=== PATIENT | female | born 1945 | race Caucasian/White ===

== ENCOUNTER 2020-09-21 09:20 | Emergency (ER) | payer MEDICARE, OTHER, SELFPAY ==
--- NOTE | ~2020-09-21 | XR_ITS ---
EXAMINATION: XR CHEST CLINICAL INFORMATION: Allergic reaction COMPARISON: Previous chest x-ray most recent November 2015 TECHNIQUE: Frontal view of the chest was obtained. FINDINGS: The cardiac silhouette is upper normal in size. The thoracic aorta is calcified and tortuous. There are increased perihilar markings and peribronchial cuffing. Findings are questionable for pulmonary venous redistribution versus airways disease. The lungs are otherwise clear. The lung volumes are low. There is no pleural effusion or pneumothorax. There are degenerative changes of the spine. XR/XR chest 1V IMPRESSION: Increased hilar markings and peribronchial cuffing. Findings are questionable for pulmonary venous redistribution versus airways disease.
[2020-09-21 09:37] VITALS: BP 141/69; PULSE 70; RESP 16; TEMP 37.1; O2SAT 97; BMI 44.9
[2020-09-21] MEDS: diphenhydrAMINE HCL 50 MG/ML VIAL 25 MG IVPUSH (10:29)
[2020-09-21] MEDS: Famotidine/PF 20 MG/2 ML VIAL IVPUSH (10:30)
[2020-09-21] MEDS: methylPREDNISolone Sod Succ 125 MG/2 ML VIAL IVPUSH (10:30)
--- NOTE | 2020-09-21 10:45 | PC.NURSE ---
20 ga iv est at approx 1020 no dysphonia or drooling noted pt resting comfortably in nsr on monitor
[2020-09-21 10:49] LABS: Eosinophils Absolute Auto 0.1 X10*3/uL (0.0-0.4); Eosinophils Percent Auto 1.5 % (0-4); Hematocrit 39.4 % (37-47); Hemoglobin 12.8 g/dl (12.0-16.0); Imm Gran Abs Auto 0.01 X10*3/uL (0.00-0.03); Imm Gran Pct Auto 0.2 % (0.0-0.4); Lymphocytes Absolute Auto 0.6 X10*3/uL (1.2-4.9); Lymphocytes Percent Auto 12.7 % (20-40); MANUAL DIFF FLAG SCAN; Mean Corpuscular HGB Conc 32.5 g/dl (31.0-35.0); Mean Corpuscular Hemoglobin 30.1 pg (27.0-33.0); Mean Corpuscular Volume 92.7 fL (80-98); Monocytes Absolute Auto 0.3 X10*3/uL (0.1-1.2); Monocytes Percent Auto 7.5 % (2-11); Neutrophils Absolute Auto 3.6 X10*3/uL (2.0-8.3); Neutrophils Percent Auto 78.1 % (45-73); Red Blood Count 4.25 X10*6/uL (4.20-5.50); SCAN SMEAR FLAG 1; White Blood Count 4.6 X10*3/uL (4.8-10.8)
[2020-09-21 11:11] VITALS: BP 120/42; PULSE 70; RESP 18; TEMP 36.6; O2SAT 96
[2020-09-21 11:12] LABS: Mean Platelet Volume 10.6 fL (9.4-12.3); Platelet Count 45 X10*3/uL (160-400)
--- NOTE | 2020-09-21 11:12 | PC.NURSE ---
unlabored resp. ls cta. one area of reddness on left forearm noted. pt states rash is improving. has been dozing. nsr on monitor. no diff swallowing or itchy throat. no oropharengeal swelling.
[2020-09-21 11:16] LABS: SLIDE REVIEW VERIFIED
[2020-09-21 11:30] LABS: Alanine Aminotransferase 19 U/L (0-31); Alkaline Phosphatase 59 U/L (39-117); Anion Gap 13 (12-20); Aspartate Amino Transferase 22 U/L (5-31); Bilirubin Direct 0.6 mg/dL (0.0-0.5); Bilirubin Total 1.6 mg/dL (0.0-1.0); Blood Urea Nitrogen 18 mg/dL (9-16); Calcium 9.2 mg/dL (8.4-10.2); Carbon Dioxide 24 mmol/L (22-29); Chloride 107 mmol/L (96-108); Creatinine Clr Calc Pharmacy 61.8; Estimated Glomerular Filt Rate > 60; Glucose Random 153 mg/dL (60-115); Potassium 4.4 mmol/L (3.3-5.1); Sodium 140 mmol/L (135-145); Total Protein 6.6 g/dL (6.5-8.0)
--- NOTE | 2020-09-21 11:36 | ED_ITS ---
HPI - Allergic Reaction General Chief complaint: Allergic Reaction Stated complaint: sob,rash, Time Seen by Provider: 09/21/20 09:41 Source: patient Mode of arrival: ambulatory History of Present Illness HPI narrative: 75-year-old female with past medical history of liver cirrhosis, diabetes, esophageal and gastric varices, hypertension, IBS, presenting to the ED complaining of diffuse body pruritus/rash and mild throat itching/swelling x1 day. Reports newly taking Tessalon Perles 1 week ago, denies other new medications/change in medications. Does take lisinopril. Denies shortness of breath, wheezing, new exposures/solution/detergents, travel, known tick/insect bites MD complaint: allergic reaction and hives Related Data Previous Rx's Medication Instructions Recorded amlodipine [Norvasc] 2.5 mg PO DAILY #14 tab 09/21/20 diphenhydramine HCl [Benadryl] 25 mg PO Q6H PRN #14 cap 09/21/20 prednisone 40 mg PO DAILY 5 Days #10 tab 09/21/20 Allergies Allergy/AdvReac Type Severity Reaction Status Date / Time erythromycin base Allergy Mild HIVES Unverified 02/26/20 14:34 [Erythromycin Base] Iodinated Contrast Media Allergy Mild HIVES Unverified 02/26/20 14:34 [IV Dye, Iodine Containing] penicillin G [Penicillin G] Allergy Mild HIVES Unverified 02/26/20 14:34 penicillin V Allergy Unknown anaphylaxis Verified 10/10/19 00:00 clindamycin [Clindamycin] AdvReac Mild SEVERE Unverified 02/26/20 14:34 DIARRHEA Clindamycin Palmitate HCl Allergy Unknown anaphylaxis Uncoded 10/10/19 00:00 Erythromycin Allergy Unknown Uncoded 10/10/19 00:00 Review of Systems Review of Systems: Constitutional: No Fever, No Chills ENT/Mouth: No Hoarseness, + sore throat, No Rhinorrhea, No Swallowing Difficulty Eyes: No Eye Pain, No Swelling, No Redness Cardiovascular: No Chest Pain, No SOB Respiratory: No Cough, No Wheezing, No Dyspnea Gastrointestinal: No Nausea, No Vomiting, No Diarrhea, No Abdominal pain Musculoskeletal: No joint pain, No Myalgias, No Joint Swelling Skin: + rash, + Pruritus Neuro: No Weakness, No Headache Yes all other systems are reviewed and are negative [facility] Past Medical History Medical History (Updated 09/21/20 @ 12:59 by NIRAV Pierce) Cirrhosis of liver Diabetes Esophageal and gastric varices FH: irritable bowel syndrome Hypertension Social History Social History Alcohol intake: never Smoking Status: Never smoker Use of substances other than those prescribed or required for medical reasons: No Advance Directives: Yes Advance Directives Information Provided: Yes Advance Directives on File: No Physical Exam Vital Signs: Vital Signs: Last Vital Signs Temp 97.8 F 09/21/20 11:11 Pulse 66 09/21/20 12:19 Resp 18 09/21/20 12:00 BP 160/75 H 09/21/20 12:00 Pulse Ox 98 09/21/20 12:00 Body Mass Index 44.9 Const: General: cooperative, healthy appearing, comfortable and no acute distress Orientation/consciousness: patient oriented x3 Limitations: no limitations HENMT: Head: Yes normal to inspection Ears: hearing grossly normal bilaterally General nose exam: Normal external nose present Face and sinus: Yes normal facial exam Mouth: Normal oral and palatal mucosa present, no audible dysphonia, no drooling and tongue abnormal (Slightly swollen) Throat: Yes posterior oropharynx normal, Yes tonsils normal, Yes uvula midline, No peritonsillar mass, No uvula laterally displaced and No uvular edema Eyes: General: appearance normal, both eyes and all related structures EOM: EOMs intact bilaterally Neck: Neck: Yes normal visual inspection, Yes no lymphadenopathy, Yes no meningeal signs and Yes trachea midline Resp: Effort & Inspection: normal respiratory effort, no audible wheezes and no stridor Auscultation: clear to auscultation bilaterally, no rales and no wheezes Cardio: Rate: regular rate Heart sounds: S1 normal heart sound present and S2 normal heart sound present GI: Inspection: Yes normal to inspection Palpation (GI): Soft to palpation, nontender, no guarding and not rigid Skin: Other: Large erythematous raised flat hives noted over chest/a bdomen/back and bilateral arms Wounds: no wounds Neuro: General: patient oriented x3 and no meningeal signs Gait exam (Neuro): Normal gait present Extrem: General: Yes normal to inspection Course Course Course Narrative: -mild leukopenia 4.6, labs otherwise unremarkable XR chest 1V IMPRESSION: Increased hilar markings and peribronchial cuffing. Findings are questionable for pulmonary venous redistribution versus airways disease. > albuterol inhaler provided to patient in the ED -on re-evaluation patient reports symptomatic improvement, hives notably improved, nearly resolved. Worrisome signs and symptoms and strict return precautions discussed. Will discharge patient on short course of steroids, d/c lisinopril and Tessalon Perles and have her follow-up with PCP/special investigation unit investigator MDM - Allergic Reaction MDM Narrative Medical decision making narrative: 75-year-old female with past medical history of liver cirrhosis, diabetes, esophageal and gastric varices, hypertension, IBS, presenting to the ED complaining of diffuse body pruritus/rash and mild throat itching/swelling x1 day. Reports newly taking Tessalon Perles 1 week ago. On exam VSS, NAD, hives noted as above, mild tongue swelling appreciable, uvula midline, in no respiratory distress, lungs CTA. Concern for allergic reaction possibly due to Tessalon Perles vs lisinopril angioedema vs other urticaria Plan: Labs, CXR, IV Solu-Medrol, IV Pepcid, IV Benadryl, re-evaluate Lab Data Result diagrams: 09/21/20 10:27 09/21/20 10:27 Labs: Lab Results 09/21/20 09/21/20 09/21/20 Range/Units 10:27 10:27 10:27 WBC 4.6 L (4.8-10.8) X10*3/uL RBC 4.25 (4.20-5.50) X10*6/uL Hgb 12.8 (12.0-16.0) g/dl Hct 39.4 (37-47) % MCV 92.7 (80-98) fL MCH 30.1 (27.0-33.0) pg MCHC 32.5 (31.0-35.0) g/dl RDW 15.0 (11.0-16.0) % Plt Count 45 L (160-400) X10*3/uL MPV 10.6 (9.4-12.3) fL Immature Gran % (Auto) 0.2 (0.0-0.4) % Neut % (Auto) 78.1 H (45-73) % Lymph % (Auto) 12.7 L (20-40) % [place] % (Auto) 7.5 (2-11) % Eos % (Auto) 1.5 (0-4) % Baso % (Auto) 0.0 (0-2) % Lymph # (Auto) 0.6 L (1.2-4.9) X10*3/uL [place] # (Auto) 0.3 (0.1-1.2) X10*3/uL Eos # (Auto) 0.1 (0.0-0.4) X10*3/uL Baso # (Auto) 0.0 (0.0-0.2) X10*3/uL Abs Immat Gran (auto) 0.01 (0.00-0.03) X10*3/uL Absolute Neuts (auto) 3.6 (2.0-8.3) X10*3/uL Absolute Nucleated RBC 0.000 (0.0-0.012) X10*3/uL Nucleated RBC % (auto) 0.0 (0.0-0.2) /100WBC Smear Tech's Comments VERIFIED Hold Blue Top SEE NOTE Sodium 140 (135-145) mmol/L Potassium 4.4 (3.3-5.1) mmol/L Chloride 107 (96-108) mmol/L Carbon Dioxide 24 (22-29) mmol/L Anion Gap 13 (12-20) BUN 18 H (9-16) mg/dL Creatinine 0.87 (0.5-1.4) mg/dL Estim Creat Clear Calc 61.8 Estimated GFR > 60 Random Glucose 153 H (60-115) mg/dL Calcium 9.2 (8.4-10.2) mg/dL Total Bilirubin 1.6 H (0.0-1.0) mg/dL Direct Bilirubin 0.6 H (0.0-0.5) mg/dL AST 22 (5-31) U/L ALT 19 (0-31) U/L Alkaline Phosphatase 59 (39-117) U/L B-Natriuretic Peptide (<100) pg/mL Total Protein 6.6 (6.5-8.0) g/dL Albumin 4.0 (3.5-5.0) g/dL 09/21/20 Range/Units 10:27 WBC (4.8-10.8) X10*3/uL RBC (4.20-5.50) X10*6/uL Hgb (12.0-16.0) g/dl Hct (37-47) % MCV (80-98) fL MCH (27.0-33.0) pg MCHC (31.0-35.0) g/dl RDW (11.0-16.0) % Plt Count (160-400) X10*3/uL MPV (9.4-12.3) fL Immature Gran % (Auto) (0.0-0.4) % Neut % (Auto) (45-73) % Lymph % (Auto) (20-40) % [place] % (Auto) (2-11) % Eos % (Auto) (0-4) % Baso % (Auto) (0-2) % Lymph # (Auto) (1.2-4.9) X10*3/uL [place] # (Auto) (0.1-1.2) X10*3/uL Eos # (Auto) (0.0-0.4) X10*3/uL Baso # (Auto) (0.0-0.2) X10*3/uL Abs Immat Gran (auto) (0.00-0.03) X10*3/uL Absolute Neuts (auto) (2.0-8.3) X10*3/uL Absolute Nucleated RBC (0.0-0.012) X10*3/uL Nucleated RBC % (auto) (0.0-0.2) /100WBC Smear Tech's Comments Hold Blue Top Sodium (135-145) mmol/L Potassium (3.3-5.1) mmol/L Chloride (96-108) mmol/L Carbon Dioxide (22-29) mmol/L Anion Gap (12-20) BUN (9-16) mg/dL Creatinine (0.5-1.4) mg/dL Estim Creat Clear Calc Estimated GFR Random Glucose (60-115) mg/dL Calcium (8.4-10.2) mg/dL Total Bilirubin (0.0-1.0) mg/dL Direct Bilirubin (0.0-0.5) mg/dL AST (5-31) U/L ALT (0-31) U/L Alkaline Phosphatase (39-117) U/L B-Natriuretic Peptide 55 (<100) pg/mL Total Protein (6.5-8.0) g/dL Albumin (3.5-5.0) g/dL Discharge Plan Discharge Clinical Impression: Urticaria, Angioedema Patient Disposition: Home, Self-Care Instructions: Urticaria (ED), Angioedema (ED) Additional Instructions: STOP TAKING YOUR LISINOPRIL, START TAKING NORVASC WHICH IS A NEW BLOOD PRESSURE MEDICATION You should also stop taking previously prescribed Tessalon Perles YOU TO HAVE CLOSE FOLLOW-UP WITH HER PRIMARY CARE DOCTOR FOR BLOOD PRESSURE MONITORING TAKE BENADRYL AT HOME FOR HIVES/ITCHINESS IN ADDITION PREDNISONE A STEROID WHICH TO HELP WITH HER ALLERGIC SYMPTOMS YOUR GIVEN AN INHALER TODAY IN THE ED, USE NEEDED FOR SHORTNESS OF BREATH/WHEEZING IF HER SYMPTOMS RECUR, PERSIST, WORSEN, YOU DEVELOP SHORTNESS BREATH, WHEEZING, RESIDUAL PERSISTENT HIVES, THOAT SWELLING RETURN TO THE ED IMMEDIATELY FOLLOW UP WITH HER DOCTOR Prescriptions: New diphenhydramine HCl [Benadryl] 25 mg capsule 25 mg PO Q6H PRN (Reason: allergic reaction) Qty: 14 RF: 0 prednisone 20 mg tablet 40 mg PO DAILY 5 Days Qty: 10 RF: 0 amlodipine [Norvasc] 2.5 mg tablet 2.5 mg PO DAILY Qty: 14 RF: 0 Referrals: Cortez Whitney DO [Physician] - 2 days Skyler Hermosillo MD [Primary Care Provider] - 2 days Interventions: ED Discharge Assessment Last Done: 09/21/20 13:35 Discharge Date/Time: 09/21/20 13:39
[2020-09-21 12:00] VITALS: BP 160/75; PULSE 68; RESP 18; O2SAT 98
[2020-09-21 12:19] VITALS: PULSE 66; O2SAT 94
[2020-09-21] MEDS: Albuterol Sulfate 90 MCG 8 GM INHALER 4 PUFF INHALE (12:19)
[2020-09-21 12:55] LABS: B Type Natriuretic Peptide 55 pg/mL (<100)
== END 2020-09-21 13:39 | disposition home or self-care (01) ==
PROVIDERS: Physician Assistant; Emergency Provider Emergency Medicine; PCP Internal Medicine
DX: R21 Rash and other nonspecific skin eruption (principal); T50.905A Adverse effect of unspecified drugs, medicaments and biological substances, initial encounter; Y92.019 Unspecified place in single-family (private) house as the place of occurrence of the external cause; T78.3XXA Angioneurotic edema, initial encounter
CPT/HCPCS: 36415; 71045; 80048; 80076; 83880; 85025; 94640; 96374; 96375; 99284; J1200; J2930

== ENCOUNTER 2022-06-10 09:24 | Inpatient (IN) | payer MEDICARE, OTHER, SELFPAY ==
--- NOTE | ~2022-06-10 | US_ITS ---
EXAMINATION: US ABDOMEN COMPLETE CLINICAL INFORMATION: Evaluate for ascites. COMPARISON: None TECHNIQUE: Real-time imaging of the abdominal viscera. FINDINGS: PANCREAS: Normal. ABDOMINAL AORTA: The proximal, mid, and distal segments are normal in caliber. INFERIOR VENA CAVA: Visualized portions are normal. LIVER: Heterogeneous liver texture suggesting liver parenchymal disease, The liver is normal in size. The liver contour is normal. No focal hepatic lesion. There is no intrahepatic biliary duct dilatation seen. GALLBLADDER: Normal. The gallbladder is physiologically distended without evidence of stones, sludge, polyps, wall thickening or pericholecystic fluid. COMMON BILE DUCT: Normal in caliber measuring 0.3 cm in diameter. RIGHT KIDNEY: Normal. No hydronephrosis. No renal calculi or focal parenchymal lesions. The kidney measures 11 cm in maximum dimension. LEFT KIDNEY: Normal. No hydronephrosis. No renal calculi or focal parenchymal lesions. The kidney measures 10.3 cm in maximum dimension. SPLEEN: Enlarged The spleen measures 21 cm in maximum dimension. Echogenic focus in the spleen likely calcified granuloma 2.1 x 1.4 x 1.3 cm probably of no clinical significance. FREE FLUID: None. US/US abdomen complete IMPRESSION: *Heterogeneously echogenic liver suggesting liver parenchymal disease possibly liver cirrhosis and/or hepatic steatosis. No ultrasound evidence of focal liver lesion. *Splenomegaly. Spleen measure up to 21 cm. *No ascites.
[2022-06-10 09:34] VITALS: BP 157/67; PULSE 96; RESP 18; TEMP 36.7; O2SAT 95; BMI 30.5
[2022-06-10 09:44] LABS: MANUAL DIFF FLAG NO
[2022-06-10 09:49] VITALS: BP 191/77; PULSE 93; RESP 16; TEMP 36.9; O2SAT 93
[2022-06-10 10:01] LABS: Basophils Percent Auto 0.6 % (0-2); Eosinophils Absolute Auto 0.1 X10*3/uL (0.0-0.4); Eosinophils Percent Auto 1.9 % (0-4); Hematocrit 35.3 % (37.0-47.0); Hemoglobin 11.5 g/dl (12.0-16.0); Imm Gran Abs Auto 0.01 X10*3/uL (0.00-0.03); Imm Gran Pct Auto 0.3 % (0.0-0.4); Lymphocytes Absolute Auto 0.6 X10*3/uL (1.2-4.9); Lymphocytes Percent Auto 17.9 % (20-40); Mean Corpuscular HGB Conc 32.6 g/dl (31.0-35.0); Mean Corpuscular Volume 92.2 fL (80.0-98.0); Mean Platelet Volume 10.6 fL (9.4-12.3); Monocytes Absolute Auto 0.2 X10*3/uL (0.1-1.2); Monocytes Percent Auto 6.5 % (2-11); Neutrophils Absolute Auto 2.4 x10*3/uL (2.0-8.3); Neutrophils Percent Auto 72.8 % (45-73); Red Blood Count 3.83 X10*6/uL (4.20-5.50); Red Cell Distribution Width 15.3 % (11.0-16.0); White Blood Count 3.2 X10*3/uL (4.8-10.8)
[2022-06-10 10:04] LABS: Platelet Count 40 X10*3/uL (160-400)
[2022-06-10 10:08] LABS: Alanine Aminotransferase 22 U/L (0-31); Albumin Level 3.8 g/dL (3.5-5.0); Alkaline Phosphatase 56 U/L (39-117); Anion Gap 14 (12-20); Aspartate Amino Transferase 33 U/L (5-31); Bilirubin Total 1.8 mg/dL (0.0-1.0); Blood Urea Nitrogen 25 mg/dL (9-16); Calcium 9.1 mg/dL (8.4-10.2); Carbon Dioxide 18 mmol/L (22-29); Chloride 107 mmol/L (96-108); Creatinine Clr Calc Pharmacy 50.6; Estimated Glomerular Filt Rate 49; Glucose Random 333 mg/dL (60-115); Potassium 4.2 mmol/L (3.3-5.1); Sodium 135 mmol/L (135-145); Total Protein 6.6 g/dL (6.5-8.0)
[2022-06-10 10:11] VITALS: BP 180/77; PULSE 90; RESP 16; O2SAT 93
--- NOTE | 2022-06-10 10:23 | ED_ITS ---
HPI - General Adult General Chief complaint: GI Bleed Stated complaint: black stool, abdominal pain Time Seen by Provider: 06/10/22 09:47 Source: patient History of Present Illness HPI narrative: This is a 77-year-old female who complains of black stool for a few days. The patient is on Lovenox injections for prior blood clot and has been on them for about 3 months. She also complains of right lower abdominal pain that she has had for months, and that she thinks was previously evaluated on the CT scan she had at [facility], where she had been started on the Lovenox. Patient denies any fever. She does feel little lightheaded. She denies any chest pain or shortness of breath. She has had nausea but denies vomiting. She notes that her stool is black and tarry appearing. Related Data Home Medications Medication Instructions Recorded Confirmed citalopram 20 mg tablet 1 tab PO DAILY 06/10/22 06/10/22 enoxaparin 150 mg/mL subcutaneous 135 mg subcut DAILY 06/10/22 06/10/22 syringe furosemide 20 mg tablet 1 tab PO DAILY 06/10/22 06/10/22 gabapentin 300 mg capsule 1 cap PO BEDTIME 06/10/22 06/10/22 glipizide 10 mg tablet 1 tab PO BID 06/10/22 06/10/22 hydrochlorothiazide 25 mg tablet 1 tab PO DAILY 06/10/22 06/10/22 insulin degludec 200 unit/mL (3 72 unit subcut BID 06/10/22 06/10/22 mL) subcutaneous pen (Tresiba FlexTouch U-200 insulin) lorazepam 1 mg tablet 1 tab PO BEDTIME PRN anxiety 06/10/22 06/10/22 pravastatin 40 mg tablet 1 tab PO DAILY 06/10/22 06/10/22 propranolol 20 mg tablet 1 tab PO BID 06/10/22 06/10/22 sitagliptin phosphate 100 mg 1 tab PO DAILY 06/10/22 06/10/22 tablet (Januvia) Allergies Allergy/AdvReac Type Severity Reaction Status Date / Time erythromycin base Allergy Mild HIVES Verified 06/10/22 09:33 [Erythromycin Base] Iodinated Contrast Media Allergy Mild HIVES Verified 06/10/22 09:33 [IV Dye, Iodine Containing] penicillin G [Penicillin G] Allergy Mild HIVES Verified 06/10/22 09:33 penicillin V Allergy Unknown anaphylaxis Verified 06/10/22 09:33 clindamycin [Clindamycin] AdvReac Mild SEVERE Verified 06/10/22 09:33 DIARRHEA Clindamycin Palmitate HCl Allergy Unknown anaphylaxis Uncoded 10/10/19 00:00 Erythromycin Allergy Unknown Unknown Uncoded 06/10/22 09:33 Review of Systems Review of Systems: Yes all other systems are reviewed and are negative Constitutional: Constitutional: Reports as per HPI and Denies fever(s) Eyes: Eyes: Reports as per HPI and Reports no additional eye complaints ENT: Reports system reviewed and no additional complaints, except as documented, Reports as per HPI, Reports dizziness (Lightheaded), Denies nasal congestion, Denies nasal discharge and Denies sore throat Cardiovascular: Cardiovascular: Reports as per HPI, Denies chest pain and Mohinder es dyspnea Respiratory: Respiratory: Reports as per HPI, Denies cough and Denies dyspnea Gastrointestinal: Gastrointestinal: Reports as per HPI, Reports abdominal pain, Reports melena, Denies coffee ground emesis and Reports nausea Genitourinary: Genitourinary: Reports as per HPI, Denies hematuria, Denies urinary frequency and Denies dysuria Musculoskeletal: Musculoskeletal: Reports no additional musculoskeletal complaints and Denies numbness Integumentary/Breasts: Skin/Breast: Reports as per HPI and Denies rash Neurologic: Reports as per HPI, Reports dizziness (Lightheaded), Denies focal weakness and Denies numbness Psychiatric: Psychiatric: Reports no additional psychiatric complaints and Reports as per HPI Endocrine: Endocrine: Reports no additional endocrine complaints and Reports as per HPI Hematologic/Lymphatic: Hematologic/Lymphatic: Reports no additional hematologic/lymphatic complaints, Reports as per HPI and Reports other (No peripheral edema) [facility] Past Medical History Medical History (Updated 06/10/22 @ 14:22 by Edgar Dukes MD) Cirrhosis of liver Diabetes Esophageal and gastric varices FH: irritable bowel syndrome Hypertension Social History Social History Alcohol intake: never Smoked in Last 30 Days: No Use of substances other than those prescribed or required for medical reasons: No Advance Directives: No Physical Exam ED Vital Signs: Vital Signs - 24 hr 06/10/22 09:34 06/10/22 09:49 06/10/22 10:11 Temperature 98.1 F 98.4 F Pulse Rate 96 93 90 Respiratory Rate 18 16 16 Blood Pressure 157/67 H 191/77 H 180/77 H Pulse Oximetry 95 93 93 Oxygen Delivery Method Room Air Room Air Room Air 06/10/22 13:36 Temperature 98.7 F Pulse Rate 91 Respiratory Rate 18 Blood Pressure 160/63 H Pulse Oximetry 93 Oxygen Delivery Method Room Air BMI result Body Mass Index 30.5 Const General: no acute distress Orientation/consciousness: patient oriented x3 HENMT Head: Yes normal to inspection General nose exam: Normal external nose present Mouth: moist mucous membranes Throat: Yes posterior oropharynx normal, Yes tonsils normal and Yes uvula midline Eyes Eyelids: Yes eyelids normal Conjunctivae: conjunctivae normal Pupils: Equal, round and reactive pupils present Neck Neck: Yes supple Resp Effort & Inspection: normal respiratory effort Auscultation: clear to auscultation bilaterally Cardio Rate: regular rate Rhythm: regular rhythm Heart sounds: S1 normal heart sound present, S2 normal heart sound present, no gallops, no murmurs and no rubs GI Inspection: No distended Palpation (GI): Soft to palpation and Tenderness to palpation present (GI) (Very mild right lower quadrant tenderness) Auscultation: normal bowel sounds Rectal Exam - Female: other (Patient brought a sample of stool on pad, which is jet black) Skin General skin exam: other (Warm and dry) Neuro General: patient oriented x3 and CN's II-XI intact bilaterally Cranial nerves: Yes Equal, round and reactive pupils present Extrem General: Yes no pedal edema Psych Affect: normal affect Attitude: cooperative Medications Administered Discontinued Medications Generic Name Dose Route Start Last Admin Trade Name Freq PRN Reason Stop Dose Admin Ondansetron HCl 4 mg 06/10/22 11:42 06/10/22 12:06 Ondansetron Hcl 4 Mg/2 Ml Vial IVPUSH 06/10/22 11:43 4 mg ONCE ONE Administration Pantoprazole Sodium 80 mg 06/10/22 10:47 06/10/22 11:17 Pantoprazole Sodium 40 Mg/10 Ml Vial IVPUSH 06/10/22 10:48 80 mg ONCE ONE Administration Medical Decision Making Medical Decision Making [facility] Narrative: Patient with melena for a few days. Patient had a stool sample she brought in which was heme positive. Hemoglobin hematocrit are slightly lower than baseline but not to a concerning level. Patient is thrombocytopenic which is chronic, the count is 40. Patient is on Lovenox daily injections, PTT is only mildly elevated. Patient's heparin is to be held the patient is to be observed in the hospital, Dr. Bynum will follow for GI. Patient was treated with Zofran 4 mg IV in the ED Differential Diagnosis Upper GI bleed from esophageal varices, versus stomach, coagulopathy and varices secondary to chronic liver disease, versus coagulopathy secondary to daily heparin injection Admission/Observation Consideration of admission/observation: Escalation of care including admission/observation considered Consult Healthcare Provider Management of the patient was discussed with: Hospitalist (Angelia Mercado, nurse practitioner for the hospitalist service) and Fixed Route Bus Operator (Dr. Bynum of GI) Lab Data MDM Lab Attestation statement: I reviewed the patient's lab results. Result Diagrams: 06/10/22 09:41 06/10/22 09:41 Labs: Lab Results 06/10/22 06/10/22 06/10/22 Range/Units 09:41 09:41 09:41 WBC 3.2 L (4.8-10.8) X10*3/uL RBC 3.83 L (4.20-5.50) X10*6/uL Hgb 11.5 L (12.0-16.0) g/dl Hct 35.3 L (37.0-47.0) % MCV 92.2 (80.0-98.0) fL MCH 30.0 (27.0-33.0) pg MCHC 32.6 (31.0-35.0) g/dl RDW 15.3 (11.0-16.0) % Plt Count 40 L (160-400) X10*3/uL MPV 10.6 (9.4-12.3) fL Immature Gran % (Auto) 0.3 (0.0-0.4) % Neut % (Auto) 72.8 (45-73) % Lymph % (Auto) 17.9 L (20-40) % [place] % (Auto) 6.5 (2-11) % Eos % (Auto) 1.9 (0-4) % Baso % (Auto) 0.6 (0-2) % Lymph # (Auto) 0.6 L (1.2-4.9) X10*3/uL [place] # (Auto) 0.2 (0.1-1.2) X10*3/uL Eos # (Auto) 0.1 (0.0-0.4) X10*3/uL Baso # (Auto) 0.0 (0.0-0.2) X10*3/uL Abs Immat Gran (auto) 0.01 (0.00-0.03) X10*3/uL Absolute Neuts (auto) 2.4 (2.0-8.3) x10*3/uL Absolute Nucleated RBC 0.000 (0.0-0.012) X10*3/uL Nucleated RBC % (auto) 0.0 (0.0-0.2) /100WBC PT (10.0-13.1) SEC INR (0.9-1.1) APTT (26.0-36.4) SEC Sodium 135 (135-145) mmol/L Potassium 4.2 (3.3-5.1) mmol/L Chloride 107 (96-108) mmol/L Carbon Dioxide 18 L (22-29) mmol/L Anion Gap 14 (12-20) BUN 25 H (9-16) mg/dL Creatinine 1.08 (0.5-1.4) mg/dL Estim Creat Clear Calc 50.6 Estimated GFR 49 Random Glucose 333 H (60-115) mg/dL Estimat Average Glucose 174 mg/dL Hemoglobin A1c % 7.7 % Calcium 9.1 (8.4-10.2) mg/dL Total Bilirubin 1.8 H (0.0-1.0) mg/dL AST 33 H D (5-31) U/L ALT 22 (0-31) U/L Alkaline Phosphatase 56 (39-117) U/L Total Protein 6.6 (6.5-8.0) g/dL Albumin 3.8 (3.5-5.0) g/dL Stool Occult Blood (NEGATIVE) COVID-19 (SHIKHA) (Negative) COVID-19 Clin Com 06/10/22 06/10/22 06/10/22 Range/Units 10:26 10:32 11:32 WBC (4.8-10.8) X10*3/uL RBC (4.20-5.50) X10*6/uL Hgb (12.0-16.0) g/dl Hct (37.0-47.0) % MCV (80.0-98.0) fL MCH (27.0-33.0) pg MCHC (31.0-35.0) g/dl RDW (11.0-16.0) % Plt Count (160-400) X10*3/uL MPV (9.4-12.3) fL Immature Gran % (Auto) (0.0-0.4) % Neut % (Auto) (45-73) % Lymph % (Auto) (20-40) % [place] % (Auto) (2-11) % Eos % (Auto) (0-4) % Baso % (Auto) (0-2) % Lymph # (Auto) (1.2-4.9) X10*3/uL [place] # (Auto) (0.1-1.2) X10*3/uL Eos # (Auto) (0.0-0.4) X10*3/uL Baso # (Auto) (0.0-0.2) X10*3/uL Abs Immat Gran (auto) (0.00-0.03) X10*3/uL Absolute Neuts (auto) (2.0-8.3) x10*3/uL Absolute Nucleated RBC (0.0-0.012) X10*3/uL Nucleated RBC % (auto) (0.0-0.2) /100WBC PT 13.7 H (10.0-13.1) SEC INR 1.2 H (0.9-1.1) APTT 36.0 (26.0-36.4) SEC Sodium (135-145) mmol/L Potassium (3.3-5.1) mmol/L Chloride (96-108) mmol/L Carbon Dioxide (22-29) mmol/L Anion Gap (12-20) BUN (9-16) mg/dL Creatinine (0.5-1.4) mg/dL Estim Creat Clear Calc Estimated GFR Random Glucose (60-115) mg/dL Estimat Average Glucose mg/dL Hemoglobin A1c % % Calcium (8.4-10.2) mg/dL Total Bilirubin (0.0-1.0) mg/dL AST (5-31) U/L ALT (0-31) U/L Alkaline Phosphatase (39-117) U/L Total Protein (6.5-8.0) g/dL Albumin (3.5-5.0) g/dL Stool Occult Blood POSITIVE (NEGATIVE) COVID-19 (SHIKHA) Negative (Negative) COVID-19 Clin Com See Note Independent Historian Clinical information obtained from an independent historian. History obtained from or confirmed by: Spouse External Record Review External record reviewed: Outpatient record (Discharge summary from [facility]) and Prior outpatient radiology CT scan at [facility] from December in January showed cirrhotic liver, portal hypertension, subocclusive thrombus in main portal vein. Ultrasound in September h ad shown a patent portal vein Discharge Plan Discharge Clinical Impression: Acute upper GI bleeding, Thrombocytopenia, Cirrhosis of liver Patient Disposition: Admitted As Inpatient Prescriptions: No Action pravastatin 40 mg tablet 1 tab PO DAILY glipizide 10 mg tablet 1 tab PO BID citalopram 20 mg tablet 1 tab PO DAILY gabapentin 300 mg capsule 1 cap PO BEDTIME enoxaparin 150 mg/mL syringe 135 mg subcut DAILY hydrochlorothiazide 25 mg tablet 1 tab PO DAILY furosemide 20 mg tablet 1 tab PO DAILY insulin degludec [Tresiba FlexTouch U-200] 200 unit/mL (3 mL) insulin pen 72 unit subcut BID propranolol 20 mg tablet 1 tab PO BID lorazepam 1 mg tablet 1 tab PO BEDTIME PRN (Reason: anxiety) Januvia 100 mg tablet 1 tab PO DAILY
[2022-06-10 10:39] LABS: OBS Int Ctl Valid YES; OBS1 POSITIVE (NEGATIVE)
[2022-06-10 10:43] LABS: INTERNATIONAL NORM RATIO 1.2 (0.9-1.1); Prothrombin Time 13.7 SEC (10.0-13.1)
[2022-06-10] MEDS: Pantoprazole Sodium 40 MG/10 ML VIAL 80 MG IVPUSH (11:17)
[2022-06-10 12:06] LABS: COVID-19 Test Negative (Negative); IDNOW Serial# 16C4AD1C
[2022-06-10] MEDS: ondansetron HCL 4 MG/2 ML VIAL IVPUSH ×2 (12:06→20:52)
--- NOTE | 2022-06-10 13:04 | P.HPHOSP_ITS ---
History of Present Illness Date of Service: 06/10/22 Chief Complaint: Melena Pt is a 77-year-old female with a PMH significant for NAFLD/FINE cirrhosis, portal hypertension, portal vein thrombus on Lovenox, thrombocytopenia, h/o bleeding esophageal varices, HLD, and HTN who presents to the ED after 2 days of dark black stools. Patient denies any abdominal pain or pain with defecation, but has experienced some lightheadedness and dizziness with standing. Has been nauseous but no vomiting. No chest pain/pressure, palpitations, SOB. No fevers, chills. Denies NSAID and alcohol use. No hematemesis, dysphagia. Of note, pt has a complicated GI history and is followed by [facility]. Pt's most recent CT from February 2022 reveals portal hypertension, splenomegaly, stable subocclusive thrombus within the main portal vein, and a new partial occlusion of the portal and superior mesenteric veins. CT also revealed a renal lesion that should require additional workup. Patient has been on Lovenox daily since December 2021. [facility] planned to reassess in June 2022. In the ED labs were significant for H&H 11.5/35.3 (below baseline), platelets 40 (near baseline), and INR of 1.2. US of abdomen found splenomegaly, liver parenchymal disease with possible liver cirrhosis and/or hepatic steatosis, and no free fluid. Pt will be admitted to the hospital for additional workup and evaluation for GI bleed. Review of Systems Review of Systems: Dark stools x2 days Lightheadedness and dizziness with standing No abdominal pain Denies chest pain/pressure No SOB PMFSH Medical History Cirrhosis of liver Diabetes Esophageal and gastric varices FH: irritable bowel syndrome Hypertension Social History Alcohol intake: never Smoked in Last 30 Days: No Use of substances other than those prescribed or required for medical reasons: No Advance Directives: No Meds Allergies Allergy/AdvReac Type Severity Reaction Status Date / Time erythromycin base Allergy Mild HIVES Verified 06/10/22 09:33 [Erythromycin Base] Iodinated Contrast Media Allergy Mild HIVES Verified 06/10/22 09:33 [IV Dye, Iodine Containing] penicillin G [Penicillin G] Allergy Mild HIVES Verified 06/10/22 09:33 penicillin V Allergy Unknown anaphylaxis Verified 06/10/22 09:33 clindamycin [Clindamycin] AdvReac Mild SEVERE Verified 06/10/22 09:33 DIARRHEA Clindamycin Palmitate HCl Allergy Unknown anaphylaxis Uncoded 10/10/19 00:00 Erythromycin Allergy Unknown Unknown Uncoded 06/10/22 09:33 Home Medications Medication Instructions Recorded Confirmed Last Taken Type citalopram 20 mg tablet 1 tab PO DAILY 06/10/22 06/10/22 06/09/22 History enoxaparin 150 mg/mL subcutaneous 135 mg subcut DAILY 06/10/22 06/10/22 06/09/22 History syringe furosemide 20 mg tablet 1 tab PO DAILY 06/10/22 06/10/22 06/09/22 History gabapentin 300 mg capsule 1 cap PO BEDTIME 06/10/22 06/10/22 06/09/22 History glipizide 10 mg tablet 1 tab PO BID 06/10/22 06/10/22 06/09/22 History hydrochlorothiazide 25 mg tablet 1 tab PO DAILY 06/10/22 06/10/22 06/09/22 History insulin degludec 200 unit/mL (3 72 unit subcut BID 06/10/22 06/10/22 06/09/22 History mL) subcutaneous pen (Tresiba FlexTouch U-200 insulin) lorazepam 1 mg tablet 1 tab PO BEDTIME PRN anxiety 06/10/22 06/10/22 Unknown History pravastatin 40 mg tablet 1 tab PO DAILY 06/10/22 06/10/22 06/09/22 History propranolol 20 mg tablet 1 tab PO BID 06/10/22 06/10/22 06/09/22 History sitagliptin phosphate 100 mg 1 tab PO DAILY 06/10/22 06/10/22 06/09/22 History tablet (Januvia) Physical Exam Vital Signs and Narrative: Vital Signs: Last Vital Signs Temp 98.4 F 06/10/22 09:49 Pulse 90 06/10/22 10:11 Resp 16 06/10/22 10:11 BP 180/77 H 06/10/22 10:11 Pulse Ox 93 06/10/22 10:11 O2 Del Method 06/10/22 10:11 BMI result Body Mass Index 30.5 Constitutional: Alert, in no acute distress. Mental Status: Oriented to person, place and time. Eyes: Pupils are equal, round, and reactive to light. Ear, Nose, and Throat: Oropharynx clear, mucous membranes moist. Ears and nose without deformities. Trachea midline. Respiratory: Clear to auscultation bilaterally. No wheezing, rales, or rhonchi. Cardiovascular: S1, S2 regular. No murmurs, rubs, or gallops. Gastrointestinal: Periumbilical ecchymosis, 1rst8ay area of induration on left side of umbilicus. Abdomen soft, non-tender, non-distended. NOrmal bowel sounds. Neurologic: Cranial nerves II-XI are grossly intact. NO focal neurological de ficits. Moves all extremities spontaneously. Musculoskeletal: No cyanosis or clubbing. Extremities: Non-pitting edema. Psychiatric: Normal mood and affect. Results Labs CBC and Chem 7: 06/11/22 06:17 06/11/22 06:17 Labs: Laboratory Results - last 24 hr 06/10/22 06/10/22 06/10/22 09:41 09:41 10:26 MCV 92.2 MCH 30.0 MCHC 32.6 RDW 15.3 Plt Count 40 L MPV 10.6 Immature Gran % (Auto) 0.3 Neut % (Auto) 72.8 Lymph % (Auto) 17.9 L [place] % (Auto) 6.5 Eos % (Auto) 1.9 Baso % (Auto) 0.6 Lymph # (Auto) 0.6 L [place] # (Auto) 0.2 Eos # (Auto) 0.1 Baso # (Auto) 0.0 Abs Immat Gran (auto) 0.01 Absolute Neuts (auto) 2.4 Absolute Nucleated RBC 0.000 Nucleated RBC % (auto) 0.0 PT 13.7 H INR 1.2 H APTT 36.0 Anion Gap 14 Estim Creat Clear Calc 50.6 Estimated GFR 49 Random Glucose 333 H Calcium 9.1 Total Bilirubin 1.8 H AST 33 H D ALT 22 Alkaline Phosphatase 56 Total Protein 6.6 Albumin 3.8 Stool Occult Blood COVID-19 (SHIKHA) COVID-19 Clin Com 06/10/22 06/10/22 10:32 11:32 MCV MCH MCHC RDW Plt Count MPV Immature Gran % (Auto) Neut % (Auto) Lymph % (Auto) [place] % (Auto) Eos % (Auto) Baso % (Auto) Lymph # (Auto) [place] # (Auto) Eos # (Auto) Baso # (Auto) Abs Immat Gran (auto) Absolute Neuts (auto) Absolute Nucleated RBC Nucleated RBC % (auto) PT INR APTT Anion Gap Estim Creat Clear Calc Estimated GFR Random Glucose Calcium Total Bilirubin AST ALT Alkaline Phosphatase Total Protein Albumin Stool Occult Blood POSITIVE COVID-19 (SHIKHA) Negative COVID-19 Clin Com See Note Assessment and Plan (1) Thrombocytopenia: Status: Acute (2) Cirrhosis of liver: Status: Acute (3) GI bleeding: Status: Acute Plan Pt is a 77-year-old female with a PMH significant for NAFLD/FINE cirrhosis, port al hypertension, portal vein thrombus on Lovenox, thrombocytopenia, h/o bleeding esophageal varices, HLD, and HTN who presents to the ED after 2 days of dark black stools. Pt will be admitted to the hospital for evaluation and treatment of GI bleed. # GI bleed, painless -- source of bleeding unknown -- stool heme positive -- likely secondary to daily Lovenox use -- hold Lovenox -- clear liquid diet -- US to eval for ascites and portal vein thrombosis -- follow CBC closely -- GI consult # diabetes mellitus, insulin-dependent -- hold home meds -- ssi, lantus # renal lesion -- [facility] CT from February 2022 found suspicious renal lesion -- additional workup should be done outpatient # lower extremity edema -- continue home meds # HTN -- continue home meds # HLD -- continue home meds Full code DVT Prophylaxis: pneumatic boots Attending: Dr. Uribe Pt will require a hospitalization of at least two nights for treatment and evaluation of GI bleed. Time Spent With Patient Time: Total time managing care of this patient today ____ minutes. Quality Stroke Does the patient have a stroke diagnosis?: No VTE Prior VTE?: No VTE Risk Level:: Medical - moderate - high VTE Device Contraindication: N/A - Device Ordered VTE Drug Contraindication: Treatment Not Indicated
[2022-06-10 13:36] VITALS: BP 160/63; PULSE 91; RESP 18; TEMP 37.1; O2SAT 93
[2022-06-10 13:36] LABS: Estimated Average Glucose 174 mg/dL; Hemoglobin A1c % 7.7 %
--- NOTE | 2022-06-10 13:57 | PHA.MEDREC ---
Pharmacy Consult ? Medication Reconciliation Pharmacy has completed the medication reconciliation. Despite no recent claims for propanolol and januvia, patient has pills in pill box that they state to regularly take.
--- NOTE | 2022-06-10 16:15 | PM.EVENT ---
Event Note Date of Service: 06/10/22 Event Note: This patient is seen and examined with [id number] female with history of nonalcoholic fatty liver disease/FINE, portal hypertension December 28/2022 patient was having abdominal pain that time went to [facility] her GI did CT which where she found to have portal vein thrombosis and started on low-molecular weight heparin-plan was to reassess is in June 2022. But patient came to the hospital now due to 3 days history of melena. Denies any areli bleeding, denies any nausea vomiting denies any use of any blood thinners except as above. Denies any use of any NSAIDs. Lab imaging reviewed h/h stable: 11.5 platlets [id number] leucopenia seems old. Physical exam and assessment and plan coordinated in APCs note, Agree with the plan in addition: Discussed GI:? Melena probably related to GI bleed, hemodynamically stable, monitor cbc this evening, GI evaluation pending. Continue PPI clear liquid diet Time Spent With Patient Time: Total time managing care of this patient today ____ minutes.
--- NOTE | 2022-06-10 16:56 | PM.EVENT ---
Event Note Date of Service: 06/10/22 Event Note: GI Consult-Full note dictated-History from patient and EMR Imp: 77 yo female with cirrhosis due to FINE presenting with 24-48 hours of melena. She is followed at [facility] with Dr. Galindo. She has a known history of peptic ulcer disease, esophageal varices, and portal gastropathy seen on a previous EGD > 5 years ago, but has had no history of variceal bleeding. She has been on Lovenox injections for several months due to a portal vein thrombosis. She denies use of aspirin, NSAIDs, EtOH, nor cigarettes. Other than some nausea and anorexia, she denies any other GI symptoms such as vomiting, hematochezia, jaundice, abdominal pain, heartburn, nor dysphagia. She has been stable in the ER. Given the clinical history, I suspect her UGI bleeding is self-limited at the present time and is in relation to oozing from her known portal gastropathy with the use of Lovenox, as well as her thrombocytopenia. Her home medication list in her chart does not include a PPI nor H-2 payton. I don't think this represents a variceal bleed. She does not show any signs of liver decompensation with ascites on her U/S, jaundice, nor encephalopathy. Rec: Continue supportive care. Hold Lovenox. Continue PPI. F/U Hgb. Clear liquids. If things remain stable I would advance her diet for 06/11/22 and change to po PPI shelter. I would hold off on an upper endoscopy and continue to hold her Lovenox. She could then F/U with [facility] during the week. If it looks like she is having ongoing bleeding I would then recommend an upper endoscopy during this hospitalization. D/W patient in detail and she is comfortable with this plan. Thanks Time Spent With Patient Time: Total time managing care of this patient today ____ minutes.
[2022-06-10 17:57] VITALS: BP 143/60; PULSE 75; RESP 17; TEMP 36.9; O2SAT 96
[2022-06-10 20:09] VITALS: BP 160/68; PULSE 75; RESP 17; TEMP 37.2; O2SAT 95
[2022-06-10] MEDS: Acetaminophen 325 MG TABLET 650 MG PO (20:23)
[2022-06-10 20:29] LABS: Hemoglobin 10.7 g/dl (12.0-16.0); Mean Corpuscular HGB Conc 33.4 g/dl (31.0-35.0); Mean Corpuscular Hemoglobin 30.6 pg (27.0-33.0); Mean Corpuscular Volume 91.4 fL (80.0-98.0); Red Cell Distribution Width 15.2 % (11.0-16.0); White Blood Count 2.9 X10*3/uL (4.8-10.8)
[2022-06-10 20:30] LABS: Platelet Count 35 X10*3/uL (160-400)
[2022-06-10 20:41] LABS: Glucose, Whole Blood 130 mg/dL (60-115)
[2022-06-10 20:41] LABS: Glucose, Whole Blood 105 mg/dL (60-115)
[2022-06-10] MEDS: Gabapentin 300 MG CAPSULE PO (21:32)
[2022-06-10] MEDS: Propranolol HCL 20 MG TABLET PO (21:32)
--- NOTE | 2022-06-10 21:42 | PC.NURSE ---
Octreotide IV infusion found running and not scanned in Aug. Dr. España reviewed chart informed this RN to stop infusion.
--- NOTE | 2022-06-10 21:50 | PC.NURSE ---
Pt received half of Octreotide infusion.
[2022-06-11] VITALS (9 sets, daily range): BP systolic 124–162; BP diastolic 58–86; PULSE 63–70; RESP 13–20; TEMP 36–36.8; O2SAT 93–96
[2022-06-11 00:18] LABS: Glucose, Whole Blood 70 mg/dL (60-115)
[2022-06-11] MEDS: 0.9 % Sodium Chloride Flush 3 ML SYRINGE IVFLUSH ×4 (01:40→20:54)
--- NOTE | 2022-06-11 02:34 | CONS_ITS ---
DATE OF SERVICE: 06/10/2022 REASON FOR CONSULTATION: Melena and cirrhosis. HISTORY OF PRESENT ILLNESS: The patient is a 77-year-old female with an underlying history of cirrhosis in relation to FINE. She is followed by Dr. Galindo at [facility] for this. I last saw her when she was hospitalized in 2016 for some melena. She underwent an upper endoscopy with Dr. Loo in 2015 with the finding of nonbleeding esophageal varices and some portal gastropathy. She also had an upper endoscopy in 2014 with similar findings when she had been admitted for some melena. I performed an upper endoscopy on her in 2013 for some bleeding and at that time found some small gastric ulcers and gastritis, as well as some nonbleeding esophageal varices. When I saw her in 2016 for bleeding, we had opted to hold off on an upper endoscopy at that time given all of her previous exams and her stable clinical appearance. In any event, she has been on Lovenox injections recently for a reported portal vein thrombosis. She has been on the Lovenox injections for at least 2 to 3 months now. She has not been using any aspirin, NSAIDs, tobacco, nor alcohol. She had been otherwise feeling at her baseline up until the past 2 to 3 days when she had some nausea and anorexia, and then noted the onset of black stool as of yesterday morning. This occurred several times yesterday and 2 more times a day. She had some weakness with that and came to the ER. Since admission here, she has otherwise been stable. She never had any vomiting. She denies any abdominal pain nor jaundice. She has not noticed any increasing abdominal girth. Prior to a day or 2 ago, her bowel movements were normal in color and normal in frequency. She has not had any confusion. Her admitting labs here from this morning showed hemoglobin of 11.5 compared to 12.8 back in September 2020. Platelet count is at her baseline low level of 40,000. PT was 13.7, INR 1.2. BUN was slightly elevated at 25 compared to 18 back in 2020. MEDICATIONS: List at home does not appear to include any type of acid suppression with H2 payton or PPI. Her medications here in the hospital currently include acetaminophen, Lexapro, Lasix, gabapentin, hydrochlorothiazide, insulin, lorazepam, Zofran, IV Protonix, pravastatin, and propranolol. PAST MEDICAL HISTORY: Cirrhosis in relation to FINE with associated known esophageal varices and portal gastropathy. Previous history of GI bleeding in relation to some small gastric ulcers. Insulin dependent diabetes mellitus. Hypertension. Hyperlipidemia. She denies history of DE, stroke, lung disease, or kidney disease. PAST SURGICAL HISTORY: Surgeries include a left knee replacement, hysterectomy, and tonsillectomy. SOCIAL HISTORY: She is . She does not smoke nor use any alcohol. She denies a previous history of alcohol use in the past as well. FAMILY HISTORY: Noncontributory. REVIEW OF SYSTEMS: CONSTITUTIONAL: Up until the past day or 2, she had been feeling fairly well other than some mild nausea and anorexia. SKIN: No rash, no pruritus. CARDIAC: No chest pain. PULMONARY: No coughing nor hemoptysis. GI: As above. URINARY: No dysuria, no hematuria. PHYSICAL EXAMINATION: GENERAL: Patient is a pleasant, alert, comfortable-appearing female. She is alert, cooperative, and answers questions appropriately. SKIN: Warm and dry. Nonjaundiced. HEENT: Anicteric sclerae. NECK: Supple. CHEST: Clear. CARDIAC: Normal S1, S2. ABDOMEN: Soft, nondistended, and nontender. There is no obvious ascites. NEUROLOGICAL: She is alert and without any sign of asterixis. LABORATORY DATA: Normal electrolytes. BUN 25, creatinine 1.1, total bilirubin 1.8, AST 33, ALT 22, alkaline phosphatase 56, albumin 3.8. PT 13.7, INR 1.2. White blood cell count 3.2, hemoglobin 11.5, MCV 92, platelets 40,000. Hemoglobin in September 2020 was 12.8. Stool was Hemoccult positive. COVID was negative. Her abdominal ultrasound from today describes a heterogeneous appearing liver, but no evidence of any biliary disease nor gallbladder disease. There was some splenomegaly. There was no ascites. IMPRESSION: Given the patient's clinical history and presentation, this seems quite consistent with an upper GI bleed but currently self limited. Given her previous endoscopies and clinical history, I suspect this represents some oozing from the portal gastropathy in relation to the use of Lovenox and her thrombocytopenia. I do not think this represents a variceal bleed nor ulcer disease given otherwise no symptoms in regard to the latter. At this point, she otherwise appears stable from a clinical standpoint. I would continue supportive care, hold the Lovenox, continue her PPI, follow up her hemoglobin, and continue clear liquids. If things remain stable. I would advance her diet by tomorrow and change her to a p.o. PPI on a long-term basis. In regard to the possibility of an upper endoscopy, I advised her that at this point if things remain as stable as they currently are I would recommend holding off on that given the underlying clinical history and my clinical diagnosis of that of some limited bleeding from the portal gastropathy. If things remain stable, she could be discharged home and hold Lovenox until she speaks with her GI and/or Hematology provider at [facility]. She should continue on an oral PPI long-term given the associated risk factors for bleeding. However, if it looks like she is having any ongoing bleeding here in the hospital, I would then recommend an upper endoscopy prior to discharge. This has all been discussed in detail with the patient, and she is very comfortable with that plan. Thank you for the consultation. MD DIOGO Molina/FELICIA / [phone] MTDD
[2022-06-11] MEDS: Pantoprazole Sodium 40 MG/10 ML VIAL IVPUSH ×2 (06:27→17:06)
[2022-06-11 07:06] LABS: Anion Gap 10 (12-20); Blood Urea Nitrogen 24 mg/dL (9-16); Calcium 9.1 mg/dL (8.4-10.2); Carbon Dioxide 26 mmol/L (22-29); Chloride 111 mmol/L (96-108); Creatinine Clr Calc Pharmacy 55.2; Estimated Glomerular Filt Rate 55; Glucose Random 84 mg/dL (60-115); Potassium 3.8 mmol/L (3.3-5.1); Sodium 143 mmol/L (135-145)
[2022-06-11 07:15] LABS: Hematocrit 31.2 % (37.0-47.0); Hemoglobin 10.3 g/dl (12.0-16.0); Mean Corpuscular Hemoglobin 30.5 pg (27.0-33.0); Mean Corpuscular Volume 92.3 fL (80.0-98.0); Mean Platelet Volume 10.4 fL (9.4-12.3); Red Blood Count 3.38 X10*6/uL (4.20-5.50); Red Cell Distribution Width 15.3 % (11.0-16.0); White Blood Count 2.8 X10*3/uL (4.8-10.8)
[2022-06-11 07:17] LABS: Platelet Count 35 X10*3/uL (160-400)
[2022-06-11 07:32] LABS: Glucose, Whole Blood 82 mg/dL (60-115)
[2022-06-11] MEDS: Pravastatin Sodium 40 MG TABLET PO (08:22)
[2022-06-11] MEDS: hydroCHLOROthiazide 25 MG TABLET PO (08:22)
[2022-06-11] MEDS: Escitalopram Oxalate 10 MG TABLET PO (08:22)
[2022-06-11] MEDS: Propranolol HCL 20 MG TABLET PO ×2 (08:23→20:54)
[2022-06-11] MEDS: Furosemide 20 MG TABLET PO (08:23)
[2022-06-11] MEDS: Acetaminophen 325 MG TABLET 650 MG PO (15:01)
--- NOTE | 2022-06-11 15:13 | PC.NURSE ---
platelet transfusion started, pt denies sob/chest pain/no itching/no rash. no signs of adverse reaction observed. vss.
--- NOTE | 2022-06-11 15:48 | HO.PM.IMPN ---
Subjective Subjective Date of Service: 06/11/22 Interval History: GIB Review of Systems had episode of melena Denies any nausea or vomiting or abdominal pain or fever chills. Physical Exam Vital Signs: Vital Signs: Last Vital Signs Temp 98.0 F 06/11/22 15:31 Pulse 70 06/11/22 15:31 Resp 14 06/11/22 15:31 BP 143/86 H 06/11/22 15:31 Pulse Ox 96 06/11/22 15:31 O2 Del Method 06/11/22 15:31 BMI result Body Mass Index 30.5 Appearance: Alert.? Oriented X3.? cvs: [id number], [id number] , no murmur res: clear to auscultation ,no rhonchii or wheezing abd: no rebound or guarding ,nt, bs present. ext pulses present , no cyanosis . neuro: axo3 , nonfocal. Objective Data Active Medications Acetaminophen (Acetaminophen 325 Mg Tablet) 650 mg PO Q6H PRN PRN Reason: Pain, Mild (Pain Scale 1-3) Last Admin: 06/11/22 15:01 Dose: 650 mg Documented By: JANICE Dextrose (Dextrose 50 % 25 Gm/50 Ml Syringe) 25 gm IVPUSH Q15M PRN; Protocol PRN Reason: per Hypoglycemia Standing Ord. Escitalopram Oxalate (Escitalopram Oxalate 10 Mg Tablet) 10 mg PO DAILY [facility] Last Admin: 06/11/22 08:22 Dose: 10 mg Documented By: JANICE Furosemide (Furosemide 20 Mg Tablet) 20 mg PO DAILY [facility]; Protocol Last Admin: 06/11/22 08:23 Dose: 20 mg Documented By: JANICE Gabapentin (Gabapentin 300 Mg Capsule) 300 mg PO BEDTIME [facility] Last Admin: 06/10/22 21:32 Dose: 300 mg Documented By: JORGE L Glucose (Glucose Gel 15 Gm Gel..Gram.) 15 gm PO Q15M PRN; Protocol PRN Reason: per Hypoglycemia Standing Ord. Hydrochlorothiazide (Hydrochlorothiazide 25 Mg Tablet) 25 mg PO DAILY [facility]; Protocol Last Admin: 06/11/22 08:22 Dose: 25 mg Documented By: JANICE Insulin Glargine (Insulin Glargine,Hum.Rec.Anlog 100 Unit/Ml 10 Ml Vial) 50 unit SUBCUT BID [facility] Last Admin: 06/11/22 08:30 Dose: Not Given Documented By: JANICE Non-Admin Reason: No Insulin Coverage Insulin Human Lispro (Insulin Lispro 100 Unit/Ml 3 Ml Vial) 0 unit SUBCUT QIDACHS [facility]; Protocol Last Admin: 06/11/22 13:43 Dose: Not Given Documented By: JANICE Non-Admin Reason: No Insulin Coverage Lorazepam (Lorazepam 1 Mg Tablet) 1 mg PO BEDTIME PRN PRN Reason: anxiety Ondansetron HCl (Ondansetron Hcl 4 Mg/2 Ml Vial) 4 mg IVPUSH Q8H PRN PRN Reason: Nausea and Vomiting Last Admin: 06/10/22 20:52 Dose: 4 mg Documented By: ANTONIETTA Pantoprazole Sodium (Pantoprazole Sodium 40 Mg/10 Ml Vial) 40 mg IVPUSH BID@0630,1630 [facility] Last Admin: 06/11/22 06:27 Dose: 40 mg Documented By: ANTONIETTA Pharmacy Consult (Consult Rx Perform Med Rec) 1 each MISCELLANE ONCE PRN PRN Reason: Consult order Pravastatin Sodium (Pravastatin Sodium 40 Mg Tablet) 40 mg PO DAILY [facility] Last Admin: 06/11/22 08:22 Dose: 40 mg Documented By: JANICE Propranolol HCl (Propranolol Hcl 20 Mg Tablet) 20 mg PO BID [facility]; Protocol Last Admin: 06/11/22 08:23 Dose: 20 mg Documented By: JANICE Sodium Chloride (0.9 % Sodium Chloride Flush 3 Ml Syringe) 3 ml IVFLUSH [facility] Last Admin: 06/11/22 08:23 Dose: 3 ml Documented By: JANICE Labs CBC & Chem 7: 06/11/22 06:17 06/11/22 06:17 Labs: Laboratory Results - last 24 hr 06/10/22 06/10/22 06/10/22 18:10 20:03 20:37 MCV 91.4 MCH 30.6 MCHC 33.4 RDW 15.2 Plt Count 35 L MPV 11.0 Absolute Nucleated RBC 0.000 Nucleated RBC % (auto) 0.0 Anion Gap Estim Creat Clear Calc Estimated GFR POC Glucose 130 H 105 Random Glucose Calcium Blood Type Antibody Screen 06/11/22 06/11/22 06/11/22 00:14 06:17 06:17 MCV 92.3 MCH 30.5 MCHC 33.0 RDW 15.3 Plt Count 35 L MPV 10.4 Absolute Nucleated RBC 0.000 Nucleated RBC % (auto) 0.0 Anion Gap 10 L Estim Creat Clear Calc 55.2 Estimated GFR 55 POC Glucose 70 Random Glucose 84 Calcium 9.1 Blood Type Antibody Screen 06/11/22 06/11/22 07:29 12:58 MCV MCH MCHC RDW Plt Count MPV Absolute Nucleated RBC Nucleated RBC % (auto) Anion Gap Estim Creat Clear Calc Estimated GFR POC Glucose 82 Random Glucose Calcium Blood Type A Positive Antibody Screen NEGATIVE Assessment and Plan (1) GI bleeding: Status: Acute (2) Thrombocytopenia: Status: Acute (3) Acute upper GI bleeding: Status: Acute Plan 77-year-old female with a PMH significant for NAFLD/FINE cirrhosis, portal hypertension, portal vein thrombus on Lovenox, thrombocytopenia, h/o bleeding esophageal varices, HLD, and HTN who presents to the ED after 2 days of dark black stools. Pt will be admitted to the hospital for evaluation and treatment of GI bleed. # GI bleed, painless hx of history of peptic ulcer disease, esophageal varices, and portal gastropathy seen on a previous EGD > 5 years ago -- stool heme positive -- likely secondary to daily Lovenox use -- hold Lovenox cotninue iv ppi she had 1 bowel movement melena , last 3 h/h is around 11.5/35-10.7/32-10.3/31.2 , platelets levels treandin :45-40-35-35 d/w Gi-added 1 unit platelets -moniter cbc this evenin # diabetes mellitus, insulin-dependent -- hold home meds -- ssi, lantus # renal lesion -- [facility] CT from February 2022 found suspicious renal lesion -- additional workup should be done outpatient ? # lower extremity edema -- continue home meds # HTN -- continue home meds # HLD -- continue home meds inaptient need:GI bleed-need IV PPI, platelet transfusion and monitoring of CBC. Time Spent With Patient Time: Total time managing care of this patient today ____ minutes. Quality Stroke Does the patient have a stroke diagnosis?: No VTE Prior VTE?: No VTE Risk Level:: Medical - moderate - high VTE Device Contraindication: N/A - Device Ordered VTE Drug Contraindication: Treatment Not Indicated
--- NOTE | 2022-06-11 16:11 | MHC.CM.PN ---
Met w/pt and spouse to discuss d/c planning: pt is independent; has no services or DME and will d/c to home via spouse. HCP at home and w/PCP, Nabor carreon x4. No additional services anticipated
[2022-06-11 19:18] LABS: Mean Corpuscular Hemoglobin 30.9 pg (27.0-33.0); PLT CLUMP 1
[2022-06-11 19:19] LABS: Hematocrit 31.1 % (37.0-47.0); Hemoglobin 10.4 g/dl (12.0-16.0); Mean Corpuscular HGB Conc 33.4 g/dl (31.0-35.0); Mean Corpuscular Volume 92.3 fL (80.0-98.0); Mean Platelet Volume 9.2 fL (9.4-12.3); Red Blood Count 3.37 X10*6/uL (4.20-5.50); Red Cell Distribution Width 15.5 % (11.0-16.0)
[2022-06-11 19:36] LABS: Platelet Count 38 X10*3/uL (160-400); White Blood Count 2.6 X10*3/uL (4.8-10.8)
[2022-06-11 20:38] LABS: Glucose, Whole Blood 110 mg/dL (60-115)
[2022-06-11 20:38] LABS: Glucose, Whole Blood 122 mg/dL (60-115)
[2022-06-11] MEDS: Gabapentin 300 MG CAPSULE PO (20:54)
[2022-06-12 03:20] VITALS: BP 142/67; PULSE 58; RESP 18; TEMP 36.1; O2SAT 98
[2022-06-12] MEDS: Pantoprazole Sodium 40 MG/10 ML VIAL IVPUSH (05:18)
[2022-06-12 07:19] VITALS: BP 141/69; PULSE 60; RESP 16; TEMP 36.1; O2SAT 96
[2022-06-12 07:28] LABS: Glucose, Whole Blood 160 mg/dL (60-115)
[2022-06-12 08:01] LABS: Hematocrit 30.3 % (37.0-47.0); Mean Corpuscular Hemoglobin 30.6 pg (27.0-33.0); Mean Corpuscular Volume 92.7 fL (80.0-98.0); Mean Platelet Volume 10.2 fL (9.4-12.3); Red Blood Count 3.27 X10*6/uL (4.20-5.50); Red Cell Distribution Width 15.4 % (11.0-16.0)
[2022-06-12 08:02] LABS: Platelet Count 37 X10*3/uL (160-400); White Blood Count 2.4 X10*3/uL (4.8-10.8)
[2022-06-12] MEDS: Insulin Lispro 100 UNIT/ML 3 ML VIAL SUBCUT ×3 (08:10→16:20)
[2022-06-12] MEDS: Propranolol HCL 20 MG TABLET PO (08:11)
[2022-06-12] MEDS: 0.9 % Sodium Chloride Flush 3 ML SYRINGE IVFLUSH ×2 (08:11→16:20)
[2022-06-12] MEDS: hydroCHLOROthiazide 25 MG TABLET PO (08:11)
[2022-06-12] MEDS: Pravastatin Sodium 40 MG TABLET PO (08:11)
[2022-06-12] MEDS: Furosemide 20 MG TABLET PO (08:11)
[2022-06-12] MEDS: Escitalopram Oxalate 10 MG TABLET PO (08:11)
[2022-06-12] MEDS: ondansetron HCL 4 MG/2 ML VIAL IVPUSH (08:17)
[2022-06-12] MEDS: Insulin Glargine,Hum.rec.anlog 100 UNIT/ML 10 ML VIAL 50 UNIT SUBCUT (09:12)
[2022-06-12] MEDS: Omeprazole 40 MG CAPSULE.DR PO ×2 (11:28→16:20)
[2022-06-12] MEDS: Sucralfate 1 GM TABLET PO ×2 (11:28→16:20)
[2022-06-12 11:31] LABS: Glucose, Whole Blood 281 mg/dL (60-115)
[2022-06-12] MEDS: Acetaminophen 325 MG TABLET 650 MG PO (13:44)
--- NOTE | 2022-06-12 14:23 | MHC.CM.PN ---
PT MEDICALLY CLEARED FOR D/C HOME SELF CARE W/ FOR TRANSPORT.
[2022-06-12 15:17] VITALS: BP 135/59; PULSE 68; RESP 15; TEMP 36; O2SAT 94
[2022-06-12 16:24] LABS: Glucose, Whole Blood 171 mg/dL (60-115)
--- NOTE | 2022-06-12 17:02 | P.PNGI_ITS ---
Subjective Subjective Date of Service: 06/12/22 Interval History: Hx from patient and her RN. Patient is feeling well and tolerating her diet. She only had 1 small somewhat dark BM today. Denies N/V. Critical Care Time (minutes): 0 Physical Exam Vital Signs: Vital Signs: Last Vital Signs Temp 96.8 F 06/12/22 15:17 Pulse 68 06/12/22 15:17 Resp 15 06/12/22 15:17 BP 135/59 L 06/12/22 15:17 Pulse Ox 94 06/12/22 15:17 O2 Del Method 06/12/22 15:17 BMI result Body Mass Index 30.5 Const: General: cooperative, healthy appearing, comfortable, no acute distress, well developed, alert, awake and Physically active Orientation/consciousness: patient oriented x3 GI: Other: Abd-soft, NT, nondistended Neuro: General: patient oriented x3 Objective Data Labs CBC & Chem 7: 06/12/22 07:48 06/11/22 06:17 Labs: Laboratory Results - last 24 hr 06/11/22 06/11/22 06/11/22 17:06 19:10 19:47 WBC 2.6 L RBC 3.37 L Hgb 10.4 L Hct 31.1 L MCV 92.3 MCH 30.9 MCHC 33.4 RDW 15.5 Plt Count 38 L MPV 9.2 L Absolute Nucleated RBC 0.000 Nucleated RBC % (auto) 0.0 POC Glucose 110 122 H 06/12/22 06/12/22 06/12/22 07:25 07:48 11:24 WBC 2.4 L RBC 3.27 L Hgb 10.0 L Hct 30.3 L MCV 92.7 MCH 30.6 MCHC 33.0 RDW 15.4 Plt Count 37 L MPV 10.2 Absolute Nucleated RBC 0.000 Nucleated RBC % (auto) 0.0 POC Glucose 160 H 281 H 06/12/22 16:17 WBC RBC Hgb Hct MCV MCH MCHC RDW Plt Count MPV Absolute Nucleated RBC Nucleated RBC % (auto) POC Glucose 171 H Procedures Date of Service Date of Service: 06/12/22 Progress Note: A&P Assessment and plan (1) GI bleeding: Status: Acute Assessment and Plan: Imp: Her limited GI bleeding seems very stable and without signs of any ongoing active bleeding. We reviewed that this seems c/w her known portal gastropathy and her use of Lovenox with the thrombocytopenia. I did not think an upper endoscopy was needed at this time based on her clinical course and current history. Her liver disease remains otherwise well-compensated as well. Rec: I think she can be discharged on her po omeprazole and sucralfate BID. I did advise her to hold her Lovenox and then speak with her PCP, Dr. Hermosillo, and her GI MD, Dr. Galindo, at [facility] to find out the plan re: the Lovenox going forward.I advised her that they may want to reimage her to reassess the PV Thrombosis and/or have her undergo an EGD prior to resuming her Lovenox. She was not exactly sure when her last EGD with Dr. Galindo was. I told her to avoid all a spirin and NSAIDs [facility] as well. She understood and was very comfortable with that plan. Thanks Time Spent With Patient Time: Total time managing care of this patient today ____ minutes. Quality Stroke Does the patient have a stroke diagnosis?: No VTE Prior VTE?: No VTE Risk Level:: Medical - moderate - high VTE Device Contraindication: N/A - Device Ordered VTE Drug Contraindication: Treatment Not Indicated
--- NOTE | 2022-06-12 17:07 | PM.DS ---
DS: Providers Provider Date of Service: 06/12/22 Date of admission: 06/10/22 15:25 Date of discharge: 06/12/22 Primary care physician: Skyler Hermosillo MD Consults: 06/10/22 15:55 Consult to Gastroenterology Routine Consulting Provider: Enrique Bynum Reason for consultation: Melena x3 days Has provider been notified: No DS: Diagnosis Discharge Diagnosis (1) GI bleeding: Status: Acute (2) Thrombocytopenia: Status: Acute (3) Acute upper GI bleeding: Status: Acute DS: Summary Hospital Course Hospital Course: 77-year-old female with a PMH significant for NAFLD/FINE cirrhosis, portal hypertension, portal vein thrombus on Lovenox, thrombocytopenia, h/o bleeding esophageal varices, HLD, and HTN who presents to the ED after 2 days of dark black stools. Patient denies any abdominal pain or pain with defecation, but has experienced some lightheadedness and dizziness with standing.? Has been nauseous but no vomiting.? No chest pain/pressure, palpitations, SOB.? No fevers, chills. Denies NSAID and alcohol use. No hematemesis, dysphagia. Of note, pt has a complicated GI history and is followed by [facility] GI. Pt's most recent CT from February 2022 reveals portal hypertension, splenomegaly, stable subocclusive thrombus within the main portal vein, and a new partial occlusion of the portal and superior mesenteric veins.? CT also revealed a renal lesion that should require additional workup.? Patient has been on Lovenox daily since December 2021. [facility] planned to reassess in June 2022.? In the ED labs were significant for H&H 11.5/35.3 (below baseline), platelets 40 (near baseline), and INR of 1.2. US of abdomen found splenomegaly, liver parenchymal disease with possible liver cirrhosis and/or hepatic steatosis, and no free fluid.? Pt will be admitted to the hospital for additional workup and evaluation for GI bleed. Hospital course: Patient was admitted for possible GI bleed-consistent with an upper GI bleed but currently self limited, possible related to portal for gastropathy in the setting of Lovenox use. Seen by GI less likely variceal or ulcer disease related bleeding. Patient's Lovenox was placed on hold-patient was supposed to follow up with GI this month and decide further use of Lovenox. In addition patient has chronic thrombocytopenia she says her platelets are mostly in 40s range, she received 1 unit platelet transfusion-platelets are stable in the range of 37, no new gross bleed but has mild melena. Hemodynamically stable. Upon discharge discussed with the GI: Recommended to hold Lovenox until seen by her GI Dr molina in [facility] she was told to follow up with Gi tomorrow,,Monitor CBC oupatient in 1 week , in addition added PPI and sucralfate . If any new areli bleeding or worsening anemia//platelets: Need to go to nearest emergency room for further evaluation. follow up with pcp also. Above management discussed with the patient in detail length she understand and in agreement with above plan. Time Spent with Patient Time attestation: Total time managing care of this patient today ____ minutes. Discharge coordination time: Greater than 30 minutes Quality: Safe Use of Opioids Does Pt have an Active Cancer Diagnosis on the Problem List?: No Quality: Stroke Does the patient have a stroke diagnosis?: No Physical Exam Vital Signs: Vital Signs: Last Vital Signs Temp 96.8 F 06/12/22 15:17 Pulse 68 06/12/22 15:17 Resp 15 06/12/22 15:17 BP 135/59 L 06/12/22 15:17 Pulse Ox 94 06/12/22 15:17 O2 Del Method 06/12/22 15:17 BMI result Body Mass Index 30.5 Appearance: Alert.? Oriented X3.? cvs: rrr, [id number] , no murmur res: clear to auscultation ,no rhonchii or wheezing abd: no rebound or guarding ,nt, bs present. ext pulses present , no cyanosis . neuro: axo3 , nonfocal. DS: Data Data Completed and Pending Labs on day of discharge: Laboratory Results - last 24 hr 06/11/22 06/11/22 06/11/22 17:06 19:10 19:47 WBC 2.6 L RBC 3.37 L Hgb 10.4 L Hct 31.1 L MCV 92.3 MCH 30.9 MCHC 33.4 RDW 15.5 Plt Count 38 L MPV 9.2 L Absolute Nucleated RBC 0.000 Nucleated RBC % (auto) 0.0 POC Glucose 110 122 H 06/12/22 06/12/22 06/12/22 07:25 07:48 11:24 WBC 2.4 L RBC 3.27 L Hgb 10.0 L Hct 30.3 L MCV 92.7 MCH 30.6 MCHC 33.0 RDW 15.4 Plt Count 37 L MPV 10.2 Absolute Nucleated RBC 0.000 Nucleated RBC % (auto) 0.0 POC Glucose 160 H 281 H 06/12/22 16:17 WBC RBC Hgb Hct MCV MCH MCHC RDW Plt Count MPV Absolute Nucleated RBC Nucleated RBC % (auto) POC Glucose 171 H Imaging Chest x-ray: Radiologist's impression: ITS Impressions Abdomen Ultrasound 06/10/22 13:02 IMPRESSION: *Heterogeneously echogenic liver suggesting liver parenchymal disease possibly liver cirrhosis and/or hepatic steatosis. No ultrasound evidence of focal liver lesion. *Splenomegaly. Spleen measure up to 21 cm. *No ascites. Discharge Plan Discharge Anticipated Discharge Date/Time: 06/12/22 12:47 Patient Disposition: Home, Self-Care Discharge Diagnosis: gib , thrombocytopenia. Referrals: Skyler Hermosillo MD [Primary Care Provider] - 1 Week Discharge Medications: New sucralfate 1 gram Tablet 1 g PO BID Qty: 60 0RF omeprazole 40 mg Capsule,Delayed Release(Dr/Ec) 40 mg PO BID@0630,1630 Qty: 60 0RF Continued pravastatin 40 mg tablet 1 tab PO DAILY glipizide 10 mg tablet 1 tab PO BID citalopram 20 mg tablet 1 tab PO DAILY gabapentin 300 mg capsule 1 cap PO BEDTIME hydrochlorothiazide 25 mg tablet 1 tab PO DAILY furosemide 20 mg tablet 1 tab PO DAILY insulin degludec [Tresiba FlexTouch U-200] 200 unit/mL (3 mL) insulin pen 72 unit subcut BID propranolol 20 mg tablet 1 tab PO BID lorazepam 1 mg tablet 1 tab PO BEDTIME PRN (Reason: anxiety) Januvia 100 mg tablet 1 tab PO DAILY Discontinued enoxaparin 150 mg/mL syringe 135 mg subcut DAILY Discharge Orders: Discharge Order (Routine); Ordered 06/12/22 Ordered By: Kirit Uribe Diet: Advance to usual diet Activity on Discharge: As tolerated Stand Alone Forms: Patient Portal Discharge page Care Plan Goals: Patient was admitted for possible GI bleed-consistent with an upper GI bleed but currently self limited, possible related to portal for gastropathy in the setting of Lovenox use. Seen by GI less likely variceal or ulcer disease related bleeding. Patient's Lovenox was placed on hold-patient was supposed to follow up with GI this month and decide further use of Lovenox. In addition patient has chronic thrombocytopenia she says her platelets are mostly in 40s range, she received 1 unit platelet transfusion-platelets are stable in the range of 37, no new gross bleed but has mild melena. Hemodynamically stable. Upon discharge discussed with the GI: Recommended to hold Lovenox until seen by her GI Dr molina in [facility] she was told to follow up with Gi tomorrow,,Monitor CBC oupatient in 1 week , in addition added PPI and sucralfate . If any new areli bleeding or worsening anemia//platelets: Need to go to nearest emergency room for further evaluation. follow up with pcp also. Above management discussed with the patient in detail length she understand and in agreement with above plan. Health Concerns: As above. Plan of Treatment: As above. Assessment: As above. Patient Instructions: Gastrointestinal Bleeding (DC), Thrombocytopenia (DC)
== END 2022-06-12 17:43 | disposition home or self-care (01) | DRG 813 ==
LOC: HO.ED 14:22 → HO.EDOVER 15:45 → HO.S3 06-11 15:38
PROVIDERS: Admitting Provider Student in an Organized Health Care Education/Training Program; Emergency Provider Emergency Medicine; PCP Internal Medicine; Visit Provider Internal Medicine
DX: D68.32 Hemorrhagic disorder due to extrinsic circulating anticoagulants (principal); K92.2 Gastrointestinal hemorrhage, unspecified; K76.6 Portal hypertension; K75.81 Nonalcoholic steatohepatitis (NASH); K74.60 Unspecified cirrhosis of liver; N28.9 Disorder of kidney and ureter, unspecified; T45.515A Adverse effect of anticoagulants, initial encounter; E11.9 Type 2 diabetes mellitus without complications; K31.89 Other diseases of stomach and duodenum; D69.6 Thrombocytopenia, unspecified; E78.5 Hyperlipidemia, unspecified; Z91.041 Radiographic dye allergy status; Z88.0 Allergy status to penicillin; Z88.1 Allergy status to other antibiotic agents; Z79.4 Long term (current) use of insulin; Z79.84 Long term (current) use of oral hypoglycemic drugs; Z79.899 Other long term (current) drug therapy
CPT/HCPCS: 36415; 76700; 80048; 80053; 82272; 82947; 83036; 85025; 85027; 85610; 85730; 86850; 86900; 86901; 87635; 99285; J2405; P9073

== ENCOUNTER 2023-01-06 14:26 | Emergency (ER) | payer MEDICARE, OTHER, SELFPAY ==
--- NOTE | ~2023-01-06 | CT_ITS ---
EXAMINATION: CT ABDOMEN AND PELVIS WITHOUT CONTRAST CLINICAL INFORMATION: Abdominal pain. Bloating. Nausea. Hematuria. COMPARISON: 06/02/2015 TECHNIQUE: Multidetector volumetric imaging was performed from the superior aspect of the liver through the pubic symphysis. Sagittal and coronal reformatted images were obtained on the technologist's workstation. This CT examination was performed using dose optimization techniques as appropriate, variously including the following: *Automated exposure control *Adjustment of mA and/or kV according to patient size (this includes techniques or standardized protocols for targeted exams where dose is matched to indication/reason for exam; i.e. extremities or head) *Use of iterative reconstruction technique DLP: 903 mGy-cm FINDINGS: LUNG BASES: The visualized lung bases are clear. Coronary artery calcifications.. LIVER, GALLBLADDER, AND BILIARY TREE: Cirrhotic liver morphology. No focal liver lesion. No biliary ductal dilatation. Cholecystectomy. Small volume ascites. PANCREAS: Unremarkable. SPLEEN: Enlarged spleen measures 15.5 cm CC. Calcified granulomata are present. ADRENAL GLANDS: Unremarkable. KIDNEYS AND URETERS: The kidneys are normal in size, shape, and attenuation. No hydronephrosis, hydroureter, or calculi seen. No perinephric stranding. Multiple lesions are seen in both kidneys. Wall some of these measure simple fluid, others are higher than simple fluid. Specifically exophytic right upper pole 2.1 cm lesion is higher than simple fluid. BLADDER: Unremarkable. GASTROINTESTINAL TRACT: Decompressed stomach. Normal caliber small bowel. No obstruction. No colonic wall thickening or inflammation. No free air. ABDOMINAL WALL: No significant hernia is appreciated. Mild anasarca. LYMPH NODES: Normal. VASCULAR: Normal caliber aorta with moderate atherosclerotic calcifications. PELVIC VISCERA: No pelvic mass. OSSEOUS STRUCTURES: No acute or suspicious osseous abnormality. Degenerative change throughout the spine. DISH. CT/CT abdomen pelvis wo IV con IMPRESSION: 1. Cirrhotic liver with sequela of portal hypertension including splenomegaly and small volume ascites. 2. Multiple bilateral renal lesions, some of which are simple fluid, others are higher than simple fluid. These are not definitively simple cysts. Consider nonemergent ultrasound evaluation. Fleischner guidelines were followed.
--- NOTE | ~2023-01-06 | CT_ITS ---
EXAMINATION: CT HEAD WITHOUT CONTRAST CLINICAL INFORMATION: Weakness COMPARISON: 06/02/2015 TECHNIQUE: Contiguous axial imaging was performed from the skull base to vertex without intravenous administration of contrast. This CT examination was performed using dose optimization techniques as appropriate, variously including the following: *Automated exposure control *Adjustment of mA and/or kV according to patient size (this includes techniques or standardized protocols for targeted exams where dose is matched to indication/reason for exam; i.e. extremities or head) *Use of iterative reconstruction technique DLP: 592 mGy-cm FINDINGS: There is no midline shift. There is no mass effect. There is no hemorrhage. The basal cisterns appear patent. The posterior fossa is grossly within normal limits. No extra-axial collection. There is evidence of atrophy. Scattered areas of probable white matter ischemic changes. Review of the bone windows demonstrates grossly clear sinuses. CT/CT head/brain wo IV con IMPRESSION: Negative acute noncontrast CT of the brain.
--- NOTE | ~2023-01-06 | XR_ITS ---
EXAMINATION: XR CHEST CLINICAL INFORMATION: Indication: Weakness COMPARISON: 09/21/2020 TECHNIQUE: 2 views of the chest were obtained. FINDINGS: No acute finding. Once again elevated right hemidiaphragm. There is no evidence for infiltrate. No failure. The cardiac silhouette is felt to be within normal limits. Tortuous versus ectatic arch and descending aorta. Trace effusions cannot be excluded XR/XR chest 2V IMPRESSION: Trace effusions cannot be excluded. Otherwise no acute finding
--- NOTE | 2023-01-06 15:14 | ED_ITS ---
HPI - General Adult General Chief complaint: General Medical Stated complaint: multiple symptoms Time Seen by Provider: 01/06/23 16:13 Source: patient Mode of arrival: ambulatory Limitations: no limitations History of Present Illness HPI narrative: this is a 77-year-old female who has a past medical history of insulin- dependent diabetes, anxiety, depression, hypertension, esophageal and gastric varices, liver cirrhosis who presents to the ER with complaints of 1-2 weeks of generalized weakness, fatigue, malaise, nausea. Patient also complains of mild intermittent headaches described as dull and generalized. She reports dry cough and loose stools with decreased oral intake. She did see her primary care doctor and was given a prescription for Reglan but she does not feel like it is helping. She denies any vomiting, diarrhea, abdominal pain, skin rash, neck pain, neck stiffness, chest pain, shortness of breath, fevers, chills, neck pain or neck stiffness. No recent travel or sick contact. She denies any tobacco smoking, substance use. She lives at home with her . She reports that she has been most of her time in her recliner as she feels that she has no energy to get up and do activities. When she is moving around she feels weak and has some mild lightheadedness. She denies any depression or anxiety or increased stressed at home. Related Data Home Medications Medication Instructions Recorded Confirmed citalopram 20 mg tablet 1 tab PO DAILY 06/10/22 06/10/22 furosemide 20 mg tablet 1 tab PO DAILY 06/10/22 06/10/22 gabapentin 300 mg capsule 1 cap PO BEDTIME 06/10/22 06/10/22 glipizide 10 mg tablet 1 tab PO BID 06/10/22 06/10/22 hydrochlorothiazide 25 mg tablet 1 tab PO DAILY 06/10/22 06/10/22 insulin degludec 200 unit/mL (3 72 unit subcut BID 06/10/22 06/10/22 mL) subcutaneous pen (Tresiba FlexTouch U-200 insulin) lorazepam 1 mg tablet 1 tab PO BEDTIME PRN anxiety 06/10/22 06/10/22 pravastatin 40 mg tablet 1 tab PO DAILY 06/10/22 06/10/22 propranolol 20 mg tablet 1 tab PO BID 06/10/22 06/10/22 sitagliptin phosphate 100 mg 1 tab PO DAILY 06/10/22 06/10/22 tablet (Januvia) Previous Rx's Medication Instructions Recorded omeprazole 40 mg capsule,delayed 40 mg PO BID@0630,1630 #60 caps 06/12/22 release sucralfate 1 gram tablet 1 g PO BID #60 tabs 06/12/22 nitrofurantoin 100 mg PO Q12H 5 days #10 caps 01/06/23 monohydrate/macrocrystals 100 mg capsule (Macrobid) ondansetron 4 mg disintegrating 4 mg PO Q8H PRN nausea and 01/06/23 tablet vomiting #8 tabs Allergies Allergy/AdvReac Type Severity Reaction Status Date / Time erythromycin base Allergy Mild HIVES Verified 01/06/23 15:21 [Erythromycin Base] Iodinated Contrast Media Allergy Mild HIVES Verified 01/06/23 15:21 [IV Dye, Iodine Containing] penicillin G [Penicillin G] Allergy Mild HIVES Verified 01/06/23 15:21 penicillin V Allergy Unknown anaphylaxis Verified 01/06/23 15:21 clindamycin [Clindamycin] AdvReac Mild SEVERE Verified 01/06/23 15:21 DIARRHEA Clindamycin Palmitate HCl Allergy Unknown anaphylaxis Uncoded 01/06/23 15:21 Erythromycin Allergy Unknown Unknown Uncoded 01/06/23 15:21 Review of Systems Review of Systems: Yes all other systems are reviewed and are negative Constitutional: Constitutional: Reports no additional constitutional complai nts, Denies body ache(s), Denies chills, Reports fatigue, Denies fever(s), Reports headache(s), Reports malaise and Reports weakness Eyes: Eyes: Reports no additional eye complaints and Denies change in vision ENT: Reports system reviewed and no additional complaints, except as documented, Reports headache(s), Denies nasal congestion, Denies nasal discharge and Denies neck pain Cardiovascular: Cardiovascular: Reports no additional cardiovascular complaints, Denies chest pain, Denies leg edema and Denies dyspnea Respiratory: Respiratory: Reports no additional respiratory complaints, Reports cough and Denies dyspnea Gastrointestinal: Gastrointestinal: Reports no additional gastrointestinal complaints, Denies abdominal pain, Denies diarrhea, Reports nausea and Denies vomiting Genitourinary: Genitourinary: Reports no additional female genitourinary complaints and Denies urinary incontinence Musculoskeletal: Musculoskeletal: Reports no additional musculoskeletal complaints, Denies back pain, Denies arthralgias, Denies joint swelling, Denies neck pain, Denies numbness and Denies tingling Integumentary/Breasts: Skin/Breast: Reports system reviewed and no additional complaints, except as docu and Denies rash Neurologic: Reports system reviewed and no additional complaints, except as documented, Reports headache(s), Denies numbness, Denies tingling and Reports weakness Endocrine: Endocrine: Reports fatigue PMFSH Past Medical History Attestation statement: The following information was validated with the patient. Source: old records reviewed and nursing notes reviewed Medical History Cirrhosis of liver Diabetes Esophageal and gastric varices FH: irritable bowel syndrome Hypertension Social History Social History Household Members: Spouse and Children Housing: House Do you presently have visiting nurse or other home services: No Alcohol intake: never Patient Tobacco Use Status: Never used Tobacco Smoked in Last 30 Days: No Use of substances other than those prescribed or required for medical reasons: No Advance Directives: No Advance Directives Information Provided: No service: No Current occupational status: retired Physical Exam ED Vital Signs: Vital Signs - 24 hr 01/06/23 15:15 01/06/23 17:16 01/06/23 17:16 Temperature 97.6 F Pulse Rate 79 71 73 Respiratory Rate 16 Blood Pressure 150/75 H 161/59 H 174/75 H Pulse Oximetry 95 Oxygen Delivery Method Room Air 01/06/23 17:17 01/06/23 19:17 01/06/23 22:27 Temperature 97.8 F 97.8 F Pulse Rate 78 80 65 Respiratory Rate 18 18 Blood Pressure 174/77 H 170/69 H 152/68 H Pulse Oximetry 97 96 Oxygen Delivery Method Room Air Room Air BMI result Body Mass Index 29.8 Const General: cooperative, healthy appearing, comfortable and no acute distress Orientation/consciousness: patient oriented x3 Limitations: no limitations HENMT Head: Yes normal to inspection Ears: hearing grossly normal bilaterally Eyes General: appearance normal, both eyes and all related structures Pupils: Equal, round and reactive pupils present Neck Neck: Yes normal visual inspection, Yes full ROM, Yes no lymphadenopathy and Yes no meningeal signs Chest Chest palpation & inspection: normal inspection of the chest Resp Effort & Inspection: normal respiratory effort Auscultation: clear to auscultation bilaterally Cardio Rate: regular rate Rhythm: regular rhythm Peripheral pulses: Peripheral pulses 2+ throughout GI Inspection: Yes normal to inspection Palpation (GI): Soft to palpation and nontender Auscultation: normal bowel sounds General: Yes no CVA tenderness Back/Spine/Pelvis Back: no CVA tenderness Thoracic/Lumbar Spine: thoracic and lumbar spine normal to inspection Skin General skin exam: no rashes or lesions noted Neuro General: patient oriented x3, moves all extremities and no meningeal signs Cranial nerves: Yes CN's II-XII intact bilaterally, Yes Equal, round and reactive pupils present, Yes Bilaterally intact EOM present, Yes Nystagmus not present, Yes Normal facial strength present and Yes Midline tongue present Cognition (Neuro): normal cognition Gait exam (Neuro): Normal gait present Motor exam (neuro): 5/5 motor strength present throughout Sensory Exam: Normal double simultaneous stimulation for sensation Extrem General: Yes normal to inspection, Yes no pedal edema and Yes no calf tenderness Course Course Course Narrative: This is a rapid medical exam: Additional HPI, ROS, PE not included below will be deferred to primary provider. Patient is a 77-year-old female with history of DM, cirrhosis, thrombocytopenia, and upper GI bleed presenting to the emergency department with complaint of nausea, weakness, feels shaky for several weeks. states symptoms have been ongoing for 6-8 months. Patient denies abdominal pain currently. Reports headache. Reports some loose stools but denies diarrhea or constipation. Denies vomiting. Denies blood in stool or dark, tarry stool. Denies chest pain or shortness of breath. Denies fevers. Saw PCP Sunday but states they're not doing anything. Patient's pulled this provider aside and reported that patient has been having difficulty with memory, seems worse the the day progresses, and states that patient is embarassed about this and therefore refuses to mention it to healthcare providers. He states that she has primarily been evaluated at [facility]. Plan: UA, labs, EKG Reevaluation(s) Reevaluation #1: [id number] c/w with UTI. Additional w.u unremarkable. Went to speak to patient, now c/o abdominal bloating, nausea. Will check CT A/P. At this time infection suspected. Antibiotics ordered. Reevaluation #2: 0000-CT shows IMPRESSION: 1.? Cirrhotic liver with sequela of portal hypertension including splenomegaly and small volume ascites. 2.? Multiple bilateral renal lesions, some of which are simple fluid, others are higher than simple fluid. These are not definitively simple cysts. Consider nonemergent ultrasound evaluation. This was reviewed with the patient. She is aware she will need an outpatient US to evaluate further and r/o malignancy. Plan for discharge home with PCP follow- up. Reviewed worrisome signs/ symptoms with the patient and when to return to the emergency room. Comfortable plan for discharge home. Medications Administered Discontinued Medications Generic Name Dose Route Start Last Admin Trade Name Freq PRN Reason Stop Dose Admin Sodium Chloride 1,000 mls @ 999 mls/hr 01/06/23 18:23 01/06/23 20:52 Ns IV 01/06/23 19:23 Infused .Q1H1M STA Infusion Ondansetron HCl 4 mg 01/06/23 16:30 01/06/23 17:20 Ondansetron Hcl 4 Mg/2 Ml Vial IVPUSH 01/06/23 16:31 4 mg ONCE ONE Administration Medical Decision Making Medical Decision Making [facility] Narrative: This is a 77-year-old female who presents to the ER with complaints of 1-2 weeks of generalized weakness, fatigue, malaise, nausea, intermittent headaches, dry cough, loose stool and decreased oral intake. She has no complaints of chest pain, shortness of breath, fevers, neck pain, neck stiffness, abdominal pain, vomiting or diarrhea On exam she is alert and oriented. She has a normal neurological exam. She has clear lung sounds. She has stable vital signs. Her abdomen is soft nontender. Will check labs, UA, EKG, chest x-ray, CT head, COVID testing, orthostatic vital signs will place PIV and give Zofran Differential Diagnosis Differential Diagnoses: The differential diagnosis associated with the presentation includes viral syndrome, anemia electrolyte abnormality, orthostatic hypotension, ACS, pneumonia, UTI, hypothyroidism Lab Data [facility] Lab Attestation statement: I reviewed the patient's lab results. I reviewed the labs which show leukopenia unchanged from baseline, mildly decreased hemoglobin hematocrit unchanged from baseline, mildly elevated total bilirubin unchanged from baseline mild hyperglycemia 01/06/23 15:36 01/06/23 15:36 Labs: Lab Results 01/06/23 01/06/23 01/06/23 Range/Units 15:36 15:36 15:36 WBC 3.3 L (4.8-10.8) X10*3/uL RBC 3.91 L (4.20-5.50) X10*6/uL Hgb 11.3 L (12.0-16.0) g/dl Hct 35.7 L (37.0-47.0) % MCV 91.3 (80.0-98.0) fL MCH 28.9 (27.0-33.0) pg MCHC 31.7 (31.0-35.0) g/dl RDW 16.2 H (11.0-16.0) % Plt Count 41 L (160-400) X10*3/uL MPV 9.8 (9.4-12.3) fL Immature Gran % (Auto) 0.3 (0.0-0.4) % Neut % (Auto) 78.3 H (45-73) % Lymph % (Auto) 12.7 L (20-40) % [place] % (Auto) 6.9 (2-11) % Eos % (Auto) 1.8 (0-4) % Baso % (Auto) 0.0 (0-2) % Lymph # (Auto) 0.4 L (1.2-4.9) X10*3/uL [place] # (Auto) 0.2 (0.1-1.2) X10*3/uL Eos # (Auto) 0.1 (0.0-0.4) X10*3/uL Baso # (Auto) 0.0 (0.0-0.2) X10*3/uL Abs Immat Gran (auto) 0.01 (0.00-0.03) X10*3/uL Absolute Neuts (auto) 2.6 (2.0-8.3) x10*3/uL Absolute Nucleated RBC 0.000 (0.0-0.012) X10*3/uL Nucleated RBC % (auto) 0.0 (0.0-0.2) /100WBC PT 15.1 H (11.1-13.3) SEC INR 1.2 H (0.9-1.1) Sodium 143 (135-145) mmol/L Potassium 3.8 (3.3-5.1) mmol/L Chloride 109 H (96-108) mmol/L Carbon Dioxide 23 (22-29) mmol/L Anion Gap 15 (12-20) BUN 12 (9-16) mg/dL Creatinine 0.78 (0.5-1.4) mg/dL Estim Creat Clear Calc 69.2 Estimated GFR > 60 Random Glucose 152 H (60-115) mg/dL Lactic Acid (0.5-2.0) mmol/L Calcium 9.6 (8.4-10.2) mg/dL Magnesium (1.6-2.6) mg/dL Total Bilirubin 2.2 H (0.0-1.0) mg/dL AST 20 (5-31) U/L ALT 11 (0-31) U/L Alkaline Phosphatase 62 (39-117) U/L Total Creatine Kinase (26-140) U/L Troponin I High Sens (<3.5-17.0) ng/L Total Protein 6.7 (6.5-8.0) g/dL Albumin 3.9 (3.5-5.0) g/dL TSH (0.32-4.0) uIU/mL Urine Color Urine Appearance Urine pH (5.0-9.0) Ur Specific [place] (1.005-1.025) Urine Protein (Neg-Trace) mg/dL Urine Glucose (UA) (Negative) mg/dL Urine Ketones (Negative) mg/dL Urine Blood (Negative) Urine Nitrite (Negative) Ur Leukocyte Esterase (Negative) Urine RBC (0-2) /HPF Urine WBC (0-5) /HPF Ur Squamous Epith Cells (0-2) /HPF Urine Bacteria (None Seen) Hyaline Casts (0-2) /LPF COVID-19 (SHIKHA) (Negative) COVID-19 Clin Com 01/06/23 01/06/23 01/06/23 Range/Units 15:36 16:42 16:42 WBC (4.8-10.8) X10*3/uL RBC (4.20-5.50) X10*6/uL Hgb (12.0-16.0) g/dl Hct (37.0-47.0) % MCV (80.0-98.0) fL MCH (27.0-33.0) pg MCHC (31.0-35.0) g/dl RDW (11.0-16.0) % Plt Count (160-400) X10*3/uL MPV (9.4-12.3) fL Immature Gran % (Auto) (0.0-0.4) % Neut % (Auto) (45-73) % Lymph % (Auto) (20-40) % [place] % (Auto) (2-11) % Eos % (Auto) (0-4) % Baso % (Auto) (0-2) % Lymph # (Auto) (1.2-4.9) X10*3/uL [place] # (Auto) (0.1-1.2) X10*3/uL Eos # (Auto) (0.0-0.4) X10*3/uL Baso # (Auto) (0.0-0.2) X10*3/uL Abs Immat Gran (auto) (0.00-0.03) X10*3/uL Absolute Neuts (auto) (2.0-8.3) x10*3/uL Absolute Nucleated RBC (0.0-0.012) X10*3/uL Nucleated RBC % (auto) (0.0-0.2) /100WBC PT (11.1-13.3) SEC INR (0.9-1.1) Sodium (135-145) mmol/L Potassium (3.3-5.1) mmol/L Chloride (96-108) mmol/L Carbon Dioxide (22-29) mmol/L Anion Gap (12-20) BUN (9-16) mg/dL Creatinine (0.5-1.4) mg/dL Estim Creat Clear Calc Estimated GFR Random Glucose (60-115) mg/dL Lactic Acid 1.2 (0.5-2.0) mmol/L Calcium (8.4-10.2) mg/dL Magnesium 1.9 (1.6-2.6) mg/dL Total Bilirubin (0.0-1.0) mg/dL AST (5-31) U/L ALT (0-31) U/L Alkaline Phosphatase (39-117) U/L Total Creatine Kinase 56 (26-140) U/L Troponin I High Sens < 2.7 (<3.5-17.0) ng/L Total Protein (6.5-8.0) g/dL Albumin (3.5-5.0) g/dL TSH 1.82 (0.32-4.0) uIU/mL Urine Color Urine Appearance Urine pH (5.0-9.0) Ur Specific [place] (1.005-1.025) Urine Protein (Neg-Trace) mg/dL Urine Glucose (UA) (Negative) mg/dL Urine Ketones (Negative) mg/dL Urine Blood (Negative) Urine Nitrite (Negative) Ur Leukocyte Esterase (Negative) Urine RBC (0-2) /HPF Urine WBC (0-5) /HPF Ur Squamous Epith Cells (0-2) /HPF Urine Bacteria (None Seen) Hyaline Casts (0-2) /LPF COVID-19 (SHIKHA) (Negative) COVID-19 Clin Com 01/06/23 01/06/23 Range/Units 17:17 22:28 WBC (4.8-10.8) X10*3/uL RBC (4.20-5.50) X10*6/uL Hgb (12.0-16.0) g/dl Hct (37.0-47.0) % MCV (80.0-98.0) fL MCH (27.0-33.0) pg MCHC (31.0-35.0) g/dl RDW (11.0-16.0) % Plt Count (160-400) X10*3/uL MPV (9.4-12.3) fL Immature Gran % (Auto) (0.0-0.4) % Neut % (Auto) (45-73) % Lymph % (Auto) (20-40) % [place] % (Auto) (2-11) % Eos % (Auto) (0-4) % Baso % (Auto) (0-2) % Lymph # (Auto) (1.2-4.9) X10*3/uL [place] # (Auto) (0.1-1.2) X10*3/uL Eos # (Auto) (0.0-0.4) X10*3/uL Baso # (Auto) (0.0-0.2) X10*3/uL Abs Immat Gran (auto) (0.00-0.03) X10*3/uL Absolute Neuts (auto) (2.0-8.3) x10*3/uL Absolute Nucleated RBC (0.0-0.012) X10*3/uL Nucleated RBC % (auto) (0.0-0.2) /100WBC PT (11.1-13.3) SEC INR (0.9-1.1) Sodium (135-145) mmol/L Potassium (3.3-5.1) mmol/L Chloride (96-108) mmol/L Carbon Dioxide (22-29) mmol/L Anion Gap (12-20) BUN (9-16) mg/dL Creatinine (0.5-1.4) mg/dL Estim Creat Clear Calc Estimated GFR Random Glucose (60-115) mg/dL Lactic Acid (0.5-2.0) mmol/L Calcium (8.4-10.2) mg/dL Magnesium (1.6-2.6) mg/dL Total Bilirubin (0.0-1.0) mg/dL AST (5-31) U/L ALT (0-31) U/L Alkaline Phosphatase (39-117) U/L Total Creatine Kinase (26-140) U/L Troponin I High Sens (<3.5-17.0) ng/L Total Protein (6.5-8.0) g/dL Albumin (3.5-5.0) g/dL TSH (0.32-4.0) uIU/mL Urine Color Yellow Urine Appearance Hazy Urine pH 5.5 (5.0-9.0) Ur Specific [place] >= 1.030 H (1.005-1.025) Urine Protein 100 (2+) H (Neg-Trace) mg/dL Urine Glucose (UA) Negative (Negative) mg/dL Urine Ketones Negative (Negative) mg/dL Urine Blood Large (3+) H (Negative) Urine Nitrite Negative (Negative) Ur Leukocyte Esterase Small (1+) H (Negative) Urine RBC 3-5 H (0-2) /HPF Urine WBC 6-10 (0-5) /HPF Ur Squamous Epith Cells 3-5 (0-2) /HPF Urine Bacteria 4+ (None Seen) Hyaline Casts 0-2 (0-2) /LPF COVID-19 (SHIKHA) Negative (Negative) COVID-19 Clin Com See Note Independent Interpretation I performed an independent interpretation of an: EKG, Plain X-Ray and CT Scan Interpretation: I independently reviewed the EKG which shows normal sinus rhythm with a rate of 77, normal MD, normal QRS, normal QT I independently reviewed the CT scan of the head and abdomen/pelvis and agree with radiologist's report I independently viewed the chest x-ray and agree with radiologist's report Radiology Impression Discussion of test interpretation with radiology: I have reviewed the radiologist's reading. Radiologist Impression: [address] [address] [address] Scan Report Signed Patient: Tammy Hays MR#: [id number] : 1945 Acct:[id number] Age/Sex: 77 / F ADM Date: 01/06/23 Loc: .ED Attending Dr: Ordering Physician: Betsy Nobles NP Date of Service: 01/06/23 Procedure(s): CT head/brain wo IV con Accession Number(s): [id number] cc: Betsy Nobles NP~ EXAMINATION: CT HEAD WITHOUT CONTRAST CLINICAL INFORMATION: Weakness? COMPARISON: 06/02/2015 TECHNIQUE: Contiguous axial imaging was performed from the skull base to vertex without intravenous administration of contrast. This CT examination was performed using dose optimization techniques as appropriate, variously including the following: *Automated exposure control *Adjustment of mA and/or kV according to patient size (this includes techniques or standardized protocols for targeted exams where dose is matched to indication/reason for exam; i.e. extremities or head) *Use of iterative reconstruction technique DLP: 592 mGy-cm FINDINGS: There is no midline shift. There is no mass effect. There is no hemorrhage. The basal cisterns appear patent. The posterior fossa is grossly within normal limits. No extra-axial collection. There is evidence of atrophy. Scattered areas of probable white matter ischemic changes. Review of the bone windows demonstrates grossly clear sinuses. ? CT/CT head/brain wo IV con IMPRESSION: Negative acute noncontrast CT of the brain. [address] [address] XRay Report Signed Patient: Tammy Hays MR#: [id number] : 1945 Acct:[id number] Age/Sex: 77 / F ADM Date: 01/06/23 Loc: .ED Attending Dr: Ordering Physician: Betsy Nobles NP Date of Service: 01/06/23 Procedure(s): XR chest 2V Accession Number(s): [id number] cc: Betsy Nobles NP~ EXAMINATION: XR CHEST CLINICAL INFORMATION: Indication: Weakness COMPARISON: 09/21/2020 TECHNIQUE: 2 views of the chest were obtained. FINDINGS: No acute finding. Once again elevated right hemidiaphragm. There is no evidence for infiltrate. No failure.? The cardiac silhouette is felt to be within normal limits. Tortuous versus ectatic arch and descending aorta. Trace effusions cannot be excluded XR/XR chest 2V IMPRESSION: Trace effusions cannot be excluded. Otherwise no acute finding [address] [address] [address] Scan Report Signed Patient: Tammy Hays MR#: [id number] : 1945 Acct:[id number] Age/Sex: 77 / F ADM Date: 01/06/23 Loc: .ED Attending Dr: Ordering Physician: Betsy Nobles NP Date of Service: 01/06/23 Procedure(s): CT abdomen pelvis wo IV con Accession Number(s): [id number] cc: Betsy Nobles [employer]~ EXAMINATION: CT ABDOMEN AND PELVIS WITHOUT CONTRAST? CLINICAL INFORMATION: Abdominal pain. Bloating. Nausea. Hematuria.? COMPARISON: 06/02/2015 TECHNIQUE: Multidetector volumetric imaging was performed from the superior aspect of the liver through the pubic symphysis. Sagittal and coronal reformatted images were obtained on the technologist's workstation.? This CT examination was performed using dose optimization techniques as appropriate, variously including the following: *Automated exposure control *Adjustment of mA and/or kV according to patient size (this includes techniques or standardized protocols for targeted exams where dose is matched to indication/reason for exam; i.e. extremities or head) *Use of iterative reconstruction technique DLP: 903 mGy-cm FINDINGS: LUNG BASES: The visualized lung bases are clear. Coronary artery calcifications..? LIVER, GALLBLADDER, AND BILIARY TREE: Cirrhotic liver morphology. No focal liver lesion. No biliary ductal dilatation. Cholecystectomy. Small volume ascites.? PANCREAS: Unremarkable.? SPLEEN: Enlarged spleen measures 15.5 cm CC. Calcified granulomata are present.? ADRENAL GLANDS: Unremarkable.? KIDNEYS AND URETERS: The kidneys are normal in size, shape, and attenuation. No hydronephrosis, hydroureter, or calculi seen. No perinephric stranding. Multiple lesions are seen in both kidneys. Wall some of these measure simple fluid, others are higher than simple fluid. Specifically exophytic right upper pole 2.1 cm lesion is higher than simple fluid.? BLADDER: Unremarkable.? GASTROINTESTINAL TRACT: Decompressed stomach. Normal caliber small bowel. No obstruction. No colonic wall thickening or inflammation. No free air.? ABDOMINAL WALL: No significant hernia is appreciated. Mild anasarca. LYMPH NODES: Normal. VASCULAR: Normal caliber aorta with moderate atherosclerotic calcifications. PELVIC VISCERA: No pelvic mass.? OSSEOUS STRUCTURES: No acute or suspicious osseous abnormality. Degenerative change throughout the spine. DISH.? CT/CT abdomen pelvis wo IV con IMPRESSION: 1.? Cirrhotic liver with sequela of portal hypertension including splenomegaly and small volume ascites. 2.? Multiple bilateral renal lesions, some of which are simple fluid, others are higher than simple fluid. These are not definitively simple cysts. Consider nonemergent ultrasound evaluation. Discharge Plan Discharge Clinical Impression: Acute UTI Patient Disposition: Home, Self-Care Instructions: Urinary Tract Infection in Women (ED) Additional Instructions: Your CT scan of your abdomen/pelvis shows liver cirrhosis and multiple kidney cysts. You need to have an outpatient ultrasound to evaluate these further and rule out cancer as a cause. This can be done by your PCP. You have a urinary tract infection and you received an antibiotic while you in the ER. Please start your antibiotic tomorrow. Increase fluids at home. You may take the nausea medicine as needed. Prescriptions: New nitrofurantoin monohyd/m-cryst [Macrobid] 100 mg capsule 100 mg PO Q12H 5 Days Qty: 10 0RF Rx Instructions: must administer with a meal/food ondansetron 4 mg tablet,disintegrating 4 mg PO Q8H PRN (Reason: nausea and vomiting) Qty: 8 0RF No Action pravastatin 40 mg tablet 1 tab PO DAILY glipizide 10 mg tablet 1 tab PO BID citalopram 20 mg tablet 1 tab PO DAILY gabapentin 300 mg capsule 1 cap PO BEDTIME hydrochlorothiazide 25 mg tablet 1 tab PO DAILY furosemide 20 mg tablet 1 tab PO DAILY insulin degludec [Tresiba FlexTouch U-200] 200 unit/mL (3 mL) insulin pen 72 unit subcut BID propranolol 20 mg tablet 1 tab PO BID lorazepam 1 mg tablet 1 tab PO BEDTIME PRN (Reason: anxiety) Januvia 100 mg tablet 1 tab PO DAILY sucralfate 1 gram Tablet 1 g PO BID Qty: 60 0RF omeprazole 40 mg Capsule,Delayed Release(Dr/Ec) 40 mg PO BID@0630,1630 Qty: 60 0RF Referrals: Skyler Hermosillo MD [Primary Care Provider] - 1 week
[2023-01-06 15:15] VITALS: BP 150/75; PULSE 79; RESP 16; TEMP 36.4; O2SAT 95; BMI 29.8
--- NOTE | 2023-01-06 15:20 | ECG_ITS ---
Test Reason : Multiple Complaints Blood Pressure : / mmHG Vent. Rate : 077 BPM Atrial Rate : 077 BPM P-R Int : 172 ms QRS Dur : 142 ms QT Int : 412 ms P-R-T Axes : -10 -28 -18 degrees QTc Int : 466 ms Normal sinus rhythm Right bundle branch block Abnormal ECG When compared with ECG of 11-OCT-2016 14:06, No significant change was found Referred By: Cleo Pope Electronically Signed By:MARY HDEZ MD
[2023-01-06 15:45] LABS: MANUAL DIFF FLAG NO
[2023-01-06 15:50] LABS: Eosinophils Absolute Auto 0.1 X10*3/uL (0.0-0.4); Eosinophils Percent Auto 1.8 % (0-4); Hematocrit 35.7 % (37.0-47.0); Hemoglobin 11.3 g/dl (12.0-16.0); Imm Gran Abs Auto 0.01 X10*3/uL (0.00-0.03); Imm Gran Pct Auto 0.3 % (0.0-0.4); Lymphocytes Absolute Auto 0.4 X10*3/uL (1.2-4.9); Lymphocytes Percent Auto 12.7 % (20-40); Mean Corpuscular HGB Conc 31.7 g/dl (31.0-35.0); Mean Corpuscular Hemoglobin 28.9 pg (27.0-33.0); Mean Corpuscular Volume 91.3 fL (80.0-98.0); Mean Platelet Volume 9.8 fL (9.4-12.3); Monocytes Absolute Auto 0.2 X10*3/uL (0.1-1.2); Monocytes Percent Auto 6.9 % (2-11); Neutrophils Absolute Auto 2.6 x10*3/uL (2.0-8.3); Neutrophils Percent Auto 78.3 % (45-73); Red Blood Count 3.91 X10*6/uL (4.20-5.50); Red Cell Distribution Width 16.2 % (11.0-16.0); White Blood Count 3.3 X10*3/uL (4.8-10.8)
[2023-01-06 15:53] LABS: INTERNATIONAL NORM RATIO 1.2 (0.9-1.1); Prothrombin Time 15.1 SEC (11.1-13.3)
[2023-01-06 15:57] LABS: Platelet Count 41 X10*3/uL (160-400)
[2023-01-06 16:10] LABS: Alanine Aminotransferase 11 U/L (0-31); Albumin Level 3.9 g/dL (3.5-5.0); Alkaline Phosphatase 62 U/L (39-117); Anion Gap 15 (12-20); Aspartate Amino Transferase 20 U/L (5-31); Bilirubin Total 2.2 mg/dL (0.0-1.0); Blood Urea Nitrogen 12 mg/dL (9-16); Calcium 9.6 mg/dL (8.4-10.2); Carbon Dioxide 23 mmol/L (22-29); Chloride 109 mmol/L (96-108); Creatinine Clr Calc Pharmacy 69.2; Estimated Glomerular Filt Rate > 60; Glucose Random 152 mg/dL (60-115); Potassium 3.8 mmol/L (3.3-5.1); Sodium 143 mmol/L (135-145); Total Protein 6.7 g/dL (6.5-8.0)
[2023-01-06 16:23] LABS: Troponin-I High Sensitivity < 2.7 ng/L (<3.5-17.0)
[2023-01-06 17:02] LABS: Lactic Acid 1.2 mmol/L (0.5-2.0)
[2023-01-06 17:14] LABS: Magnesium 1.9 mg/dL (1.6-2.6)
[2023-01-06 17:16] VITALS: BP 161/59; BP 174/75; PULSE 71; PULSE 73
[2023-01-06 17:17] VITALS: BP 174/77; PULSE 78
[2023-01-06] MEDS: ondansetron HCL 4 MG/2 ML VIAL IVPUSH (17:20)
[2023-01-06 17:27] LABS: TSH reflex Free T4 1.82 uIU/mL (0.32-4.0)
[2023-01-06 17:38] LABS: COVID-19 Test Negative (Negative); IDNOW Serial# 6674DD1D
--- NOTE | 2023-01-06 17:49 | PC.NURSE ---
left bedside [place] [phone]
[2023-01-06] MEDS: 0.9 % Sodium Chloride 1,000 ML 999 ML IV (18:38)
[2023-01-06 19:17] VITALS: BP 170/69; PULSE 80; RESP 18; TEMP 36.6; O2SAT 97
[2023-01-06 22:27] VITALS: BP 152/68; PULSE 65; RESP 18; TEMP 36.6; O2SAT 96
[2023-01-06 22:39] LABS: Appearance Urine Hazy; Color Urine Yellow; Glucose Urine UA Negative (Negative); Leukocyte Esterase Urine Small (1+) (Negative); Nitrite Urine Negative (Negative); PH 5.5 (5.0-9.0); Specific Gravity - Urine >= 1.030 (1.005-1.025); UMIC TRIGGER UACC YES; Urine Blood Large (3+) (Negative); Urine Ketones Negative (Negative); Urine Protein 100 (2+) mg/dL (Neg-Trace)
[2023-01-06 23:21] LABS: Bacteria Urine 4+ (None Seen); Hyaline Casts Urine 0-2 /LPF (0-2); UACC Culture Trigger YES
[2023-01-07] MEDS: Nitrofurantoin Monohyd/M-Cryst 100 MG CAPSULE PO (00:32)
--- NOTE | 2023-01-07 00:35 | PC.NURSE ---
pt calm and cooperative. pt medicated according to aug. iv removed at time of discharge. pt ambulatory. pt provided with discharge packet. pt verbalized understanding of discharge plan
[2023-01-07 00:37] VITALS: BP 166/73; PULSE 66; RESP 16; TEMP 36.6; O2SAT 95
== END 2023-01-07 00:40 | disposition home or self-care (01) ==
PROVIDERS: Nurse Practitioner Family; Registered Nurse Emergency; Emergency Provider Emergency Medicine Emergency Medical Services; PCP Internal Medicine
DX: N39.0 Urinary tract infection, site not specified (principal); B95.1 Streptococcus, group B, as the cause of diseases classified elsewhere; R53.1 Weakness; Z20.822 Contact with and (suspected) exposure to COVID-19; K74.60 Unspecified cirrhosis of liver
CPT/HCPCS: 36415; 70450; 71046; 74176; 80053; 81001; 82550; 83605; 83735; 84443; 84484; 85025; 85610; 87040; 87086; 87147; 87635; 93005; 96361; 96374; 99284; J2405

== ENCOUNTER → 2023-01-06 15:20 | Outpatient (BNV) | payer MEDICARE, OTHER, SELFPAY | PROVIDERS: Emergency Provider Emergency Medicine Emergency Medical Services; PCP Internal Medicine; Visit Provider Internal Medicine Cardiovascular Disease | DX: R94.31 Abnormal electrocardiogram [ECG] [EKG] (principal) | CPT/HCPCS: 93010 ==

== ENCOUNTER 2023-01-12 07:30 | Emergency (ER) | payer MEDICARE, OTHER, SELFPAY ==
--- NOTE | ~2023-01-12 | US_ITS ---
Examination: Ultrasound-guided paracentesis. Clinical indications: Ascites with fatigue. COMPARISON: Ultrasound abdomen 01/12/2023. TECHNIQUE: Following explaining ultrasound-guided paracentesis procedure, benefits and risk, a written consent was obtained. Patient was placed supine on ultrasound stretcher and preliminary ultrasound was obtained through 4 quadrants of the abdomen. An optimal site was selected along the right lower quadrant and marked. The marked site was cleaned and draped in usual sterile manner. 2% chlorhexidine solution was injected at puncture site. Through a small skin incision a 4 [place] catheter was advanced into the peritoneal space. After observing fluid return, stylet was withdrawn and catheter connected to vacuum bottle via connecting cannula. After obtaining all fluid and observing no more fluid return, catheter was withdrawn and complete hemostasis achieved at puncture site. Sterile Band-Aid applied postprocedure. Patient tolerated procedure extremely well. Patient was monitored by IR nursing. FINDINGS: On preliminary ultrasound imaging there is moderate amount of free fluid in the abdomen. Approximately 4.4 L of cloudy dark yellowish fluid was drained from the right lower quadrant. Part of this fluid was sent to lab as per physician request. US/US paracentesis abd w/image IMPRESSION: Successful diagnostic and therapeutic ultrasound-guided paracentesis.
--- NOTE | ~2023-01-12 | US_ITS ---
EXAMINATION: US ABDOMEN COMPLETE CLINICAL INFORMATION: Abdominal pain, history of cirrhosis. COMPARISON: 04/10/[address] scan of the abdomen and pelvis dated 01/03/2023. TECHNIQUE: Real-time imaging of the abdominal viscera. FINDINGS: PANCREAS: Visualized portions unremarkable. ABDOMINAL AORTA: Visualized portions unremarkable. INFERIOR VENA CAVA: Visualized portions unremarkable. LIVER: Cirrhosis without focal abnormality. GALLBLADDER: Status post cholecystectomy. COMMON BILE DUCT: Normal in caliber measuring 0.3 cm in diameter. RIGHT KIDNEY: 11.5 cm. Unremarkable. LEFT KIDNEY: 10.1 cm. Unremarkable. SPLEEN: 20.6 cm. Unremarkable. FREE FLUID: Mild peritoneal ascites. US/US abdomen complete IMPRESSION: 1. Hepatic cirrhosis without focal abnormality. 2. Splenomegaly. 3. Mild peritoneal ascites. Please refer to the report from the recent CT scan of the abdomen and pelvis for additional findings.
--- NOTE | 2023-01-12 07:37 | ED_ITS ---
HPI - General Adult General Chief complaint: General Medical Stated complaint: gen med Time Seen by Provider: 01/12/23 07:35 History of Present Illness HPI narrative: 77-year-old female who has a past medical history of insulin-dependent diabetes, anxiety, depression,? hypertension, esophageal and gastric varices, liver cirrhosis? who presents to the ER with complaints of fatigue and abdominal distension. Patient was seen here recently for 1-2 weeks of generalized weakness, fatigue, malaise associated with nausea. He had complaints at the time of mild intermittent headaches. At that time she has seen her primary care provider good per given a prescription for Reglan but did not feel like it have been helping at that time. Also noted at that time the had stated she h ad been feeling like this relief for 6-8 months. Including, he stated that she was having difficulty with memory which is getting progressively worse and that she had been to [facility] for evaluations. Patient was found to have urinary tract infection was started on antibiotics. She had a CT scan of the abdomen pelvis which demonstrated cirrhotic liver with sequelae of portal hypertension including splenomegaly and ascites. There also bilateral renal lesions. Since that time, patient has continued to have generalized fatigue. This is not clearly got any better. She was treated for urinary tract infection. She apparently has to antibiotics left. She has had no melanotic stools, bleeding. She has had no fevers or chills. She has a chronic dry cough which is unchanged. She denies chest pain or dyspnea on exertion. notes that her abdomen has been getting increasingly distended felt rock-hard on the upper abdominal area. She has chronic nausea which is unchanged. Patient has a lack of appetite. Related Data Home Medications Medication Instructions Recorded Confirmed citalopram 20 mg tablet 1 tab PO DAILY 06/10/22 06/10/22 furosemide 20 mg tablet 1 tab PO DAILY 06/10/22 06/10/22 gabapentin 300 mg capsule 1 cap PO BEDTIME 06/10/22 06/10/22 glipizide 10 mg tablet 1 tab PO BID 06/10/22 06/10/22 hydrochlorothiazide 25 mg tablet 1 tab PO DAILY 06/10/22 06/10/22 insulin degludec 200 unit/mL (3 72 unit subcut BID 06/10/22 06/10/22 mL) subcutaneous pen (Tresiba FlexTouch U-200 insulin) lorazepam 1 mg tablet 1 tab PO BEDTIME PRN anxiety 06/10/22 06/10/22 pravastatin 40 mg tablet 1 tab PO DAILY 06/10/22 06/10/22 propranolol 20 mg tablet 1 tab PO BID 06/10/22 06/10/22 sitagliptin phosphate 100 mg 1 tab PO DAILY 06/10/22 06/10/22 tablet (Januvia) Previous Rx's Medication Instructions Recorded omeprazole 40 mg capsule,delayed 40 mg PO BID@0630,1630 #60 caps 06/12/22 release sucralfate 1 gram tablet 1 g PO BID #60 tabs 06/12/22 nitrofurantoin 100 mg PO Q12H 5 days #10 caps 01/06/23 monohydrate/macrocrystals 100 mg capsule (Macrobid) ondansetron 4 mg disintegrating 4 mg PO Q8H PRN nausea and 01/06/23 tablet vomiting #8 tabs Allergies Allergy/AdvReac Type Severity Reaction Status Date / Time erythromycin base Allergy Mild HIVES Verified 01/12/23 07:58 [Erythromycin Base] Iodinated Contrast Media Allergy Mild HIVES Verified 01/12/23 07:58 [IV Dye, Iodine Containing] penicillin G [Penicillin G] Allergy Mild HIVES Verified 01/12/23 07:58 penicillin V Allergy Unknown anaphylaxis Verified 01/12/23 07:58 clindamycin [Clindamycin] AdvReac Mild SEVERE Verified 01/12/23 07:58 DIARRHEA Clindamycin Palmitate HCl Allergy Unknown anaphylaxis Uncoded 01/12/23 07:58 Erythromycin Allergy Unknown Unknown Uncoded 01/12/23 07:58 Review of Systems Review of Systems: CONSTITUTIONAL: Denies weight loss, fever and chills. HEENT: Denies changes in vision and hearing. RESPIRATORY: Denies SOB and cough. CV: Denies palpitations no CP. GI: + abdominal pain, nausea, - vomiting and diarrhea. : Denies dysuria and urinary frequency. MSK: Denies myalgia and joint pain. SKIN: Denies rash and pruritus. NEUROLOGICAL: Denies headache and syncope. PSYCHIATRIC: Denies recent changes in mood. Denies anxiety and depression. All other ROS are negative unless in HPI PMFSH Past Medical History Medical History Cirrhosis of liver Diabetes Esophageal and gastric varices FH: irritable bowel syndrome Hypertension Social History Social History Household Members: Spouse and Children Housing: House Do you presently have visiting nurse or other home services: No Alcohol intake: never Patient Tobacco Use Status: Never used Tobacco Advance Directives: No service: No Current occupational status: retired Physical Exam ED Vital Signs: Vital Signs - 24 hr 01/12/23 07:58 01/12/23 08:16 01/12/23 11:34 Temperature 98 F 98.7 F 98.5 F Pulse Rate 82 78 128 H Respiratory Rate 18 18 15 Blood Pressure 176/80 H 163/71 H 174/65 H Pulse Oximetry 98 95 Oxygen Delivery Method Room Air Room Air Room Air 01/12/23 13:46 Temperature 98.3 F Pulse Rate 75 Respiratory Rate 15 Blood Pressure 172/73 H Pulse Oximetry 95 Oxygen Delivery Method Room Air BMI result Body Mass Index 34.2 GEN: Well developed, no acute distress, alert, oriented HEENT: Normocephalic, atraumatic, normal external ears, nose appears normal, no oropharyngeal edema or exudates Eyes: Normal to appearance Neck: Supple, no lymphadenopathy Respiratory: Talks in complete sentences, no respiratory distress, clear to auscultation bilaterally Cardiovascular: Regular rate and rhythm, no murmurs rubs or gallops Abdomen: Soft, nontender, distended consistent with ascites, no guarding, no rebound Back: No CVA tenderness Extremities: No clubbing cyanosis or edema Neurologic: No focal neurologic deficits, cranial nerves 2-12 intact, strength is 5/5 bilaterally Skin: No rash Course Reevaluation(s) Reevaluation #1: Have received recent laboratory results that were performed yesterday. GI panel was negative. Comprehensive metabolic panel appears to have been normal with exception of a bilirubin of 2.4. CBC demonstrated a low platelet count. Lipase done 2 days ago shows 104 which is slightly elevated. Reevaluation #2: Spoke with her applied marine physics professor Dr. Johnson, recommending a diagnostic paracentesis. I will discuss this with the patient. I will ask Interventional Radiology to perform this since her ascites is small and amount. Time: 10:58 Reevaluation #3: Patient is still pending paracentesis. I will paced the patient and physician observation. The oncoming provider will assume care at 4:00 p.m.. Time: 15:43 Medical Decision Making Medical Decision Making MDM Narrative: 77-year-old female with history of liver cirrhosis, presents with generalized weakness, fatigue, abdominal distention. Her examination is consistent with ascites. It is not tender at all. There is no rebound or guarding. I doubt SBP. Patient has had significant amounts of lab work done in the last couple days. At this point, I would like to obtain her lab work from [facility]. In addition, will obtain an ultrasound of the abdomen. Will re- evaluate the patient. Differential diagnosis could include anemia, chronic disease, electrolyte abnormality, liver disease. Differential Diagnosis Differential Diagnoses: The differential diagnosis associated with the presentation includes (See above) Admission/Observation Consideration of admission/observation: Escalation of care including admission/observation considered Lab Data 01/12/23 08:56 01/12/23 08:56 Labs: Lab Results 01/12/23 01/12/23 01/12/23 Range/Units 08:56 08:56 13:43 WBC 2.6 L (4.8-10.8) X10*3/uL RBC 3.59 L (4.20-5.50) X10*6/uL Hgb 10.4 L (12.0-16.0) g/dl Hct 32.7 L (37.0-47.0) % MCV 91.1 (80.0-98.0) fL MCH 29.0 (27.0-33.0) pg MCHC 31.8 (31.0-35.0) g/dl RDW 16.0 (11.0-16.0) % Plt Count 36 L (160-400) X10*3/uL MPV 10.6 (9.4-12.3) fL Immature Gran % (Auto) 0.4 (0.0-0.4) % Neut % (Auto) 81.3 H (45-73) % Lymph % (Auto) 11.1 L (20-40) % [place] % (Auto) 6.1 (2-11) % Eos % (Auto) 1.1 (0-4) % Baso % (Auto) 0.0 (0-2) % Lymph # (Auto) 0.3 L (1.2-4.9) X10*3/uL [place] # (Auto) 0.2 (0.1-1.2) X10*3/uL Eos # (Auto) 0.0 (0.0-0.4) X10*3/uL Baso # (Auto) 0.0 (0.0-0.2) X10*3/uL Abs Immat Gran (auto) 0.01 (0.00-0.03) X10*3/uL Absolute Neuts (auto) 2.1 (2.0-8.3) x10*3/uL Absolute Nucleated RBC 0.000 (0.0-0.012) X10*3/uL Nucleated RBC % (auto) 0.0 (0.0-0.2) /100WBC PT 14.8 H (11.1-13.3) SEC INR 1.2 H (0.9-1.1) APTT 29.7 (26.0-36.4) SEC Sodium 142 (135-145) mmol/L Potassium 4.0 (3.3-5.1) mmol/L Chloride 109 H (96-108) mmol/L Carbon Dioxide 24 (22-29) mmol/L Anion Gap 13 (12-20) BUN 12 (9-16) mg/dL Creatinine 0.74 (0.5-1.4) mg/dL Estim Creat Clear Calc 80.8 Estimated GFR > 60 Random Glucose 160 H (60-115) mg/dL Calcium 9.2 (8.4-10.2) mg/dL Total Bilirubin 3.1 H (0.0-1.0) mg/dL AST 18 (5-31) U/L ALT 10 (0-31) U/L Alkaline Phosphatase 60 (39-117) U/L Total Protein 6.1 L (6.5-8.0) g/dL Albumin 3.5 (3.5-5.0) g/dL Lipase 58 (8-78) U/L Independent Interpretation I performed an independent interpretation of an: Ultrasound (Abdomen: Mild to moderate ascites, otherwise no acute findings.) Radiology Impression Discussion of test interpretation with radiology: I have reviewed the radiologist's reading. Radiologist Impression: US/US abdomen complete IMPRESSION: 1.? Hepatic cirrhosis without focal abnormality. 2.? Splenomegaly. 3.? Mild peritoneal ascites. ? Please refer to the report from the recent CT scan of the abdomen and pelvis for additional findings. Dictated By: Jose Castillo MD Signed By: <Electronically signed by Jose Castillo MD in OV> 01/12/23 0928 Independent Historian Clinical information obtained from an independent historian. History obtained from or confirmed by: Spouse External Record Review External record reviewed: Outpatient record Prescription Management I considered prescription management with: Pain Medication and Antibiotic Chronic Conditions Patient?s care impacted by: Other (Liver cirrhosis) Discharge Plan Discharge Clinical Impression: Cirrhosis of liver, Fatigue, Chronic nausea, Pancytopenia Patient Disposition: Still a Patient Instructions: Ascites (ED) Prescriptions: No Action pravastatin 40 mg tablet 1 tab PO DAILY glipizide 10 mg tablet 1 tab PO BID citalopram 20 mg tablet 1 tab PO DAILY gabapentin 300 mg capsule 1 cap PO BEDTIME hydrochlorothiazide 25 mg tablet 1 tab PO DAILY furosemide 20 mg tablet 1 tab PO DAILY insulin degludec [Tresiba FlexTouch U-200] 200 unit/mL (3 mL) insulin pen 72 unit subcut BID propranolol 20 mg tablet 1 tab PO BID lorazepam 1 mg tablet 1 tab PO BEDTIME PRN (Reason: anxiety) Januvia 100 mg tablet 1 tab PO DAILY sucralfate 1 gram Tablet 1 g PO BID Qty: 60 0RF omeprazole 40 mg Capsule,Delayed Release(Dr/Ec) 40 mg PO BID@0630,1630 Qty: 60 0RF nitrofurantoin monohyd/m-cryst [Macrobid] 100 mg capsule 100 mg PO Q12H 5 Days Qty: 10 0RF Rx Instructions: must administer with a meal/food ondansetron 4 mg tablet,disintegrating 4 mg PO Q8H PRN (Reason: nausea and vomiting) Qty: 8 0RF Referrals: Javan Johnson MD [Physician] - 3 days
[2023-01-12 07:58] VITALS: BP 176/80; PULSE 82; RESP 18; TEMP 36.6; O2SAT 98; BMI 34.2
[2023-01-12 08:16] VITALS: BP 163/71; PULSE 78; RESP 18; TEMP 37.1
[2023-01-12 08:59] LABS: MANUAL DIFF FLAG NO
[2023-01-12 09:07] LABS: Eosinophils Percent Auto 1.1 % (0-4); Hematocrit 32.7 % (37.0-47.0); Hemoglobin 10.4 g/dl (12.0-16.0); Imm Gran Abs Auto 0.01 X10*3/uL (0.00-0.03); Imm Gran Pct Auto 0.4 % (0.0-0.4); Lymphocytes Absolute Auto 0.3 X10*3/uL (1.2-4.9); Lymphocytes Percent Auto 11.1 % (20-40); Mean Corpuscular HGB Conc 31.8 g/dl (31.0-35.0); Mean Corpuscular Volume 91.1 fL (80.0-98.0); Mean Platelet Volume 10.6 fL (9.4-12.3); Monocytes Absolute Auto 0.2 X10*3/uL (0.1-1.2); Monocytes Percent Auto 6.1 % (2-11); Neutrophils Absolute Auto 2.1 x10*3/uL (2.0-8.3); Neutrophils Percent Auto 81.3 % (45-73); Red Blood Count 3.59 X10*6/uL (4.20-5.50); White Blood Count 2.6 X10*3/uL (4.8-10.8)
[2023-01-12 09:08] LABS: Platelet Count 36 X10*3/uL (160-400)
[2023-01-12 09:20] LABS: Alanine Aminotransferase 10 U/L (0-31); Albumin Level 3.5 g/dL (3.5-5.0); Alkaline Phosphatase 60 U/L (39-117); Anion Gap 13 (12-20); Aspartate Amino Transferase 18 U/L (5-31); Bilirubin Total 3.1 mg/dL (0.0-1.0); Blood Urea Nitrogen 12 mg/dL (9-16); Calcium 9.2 mg/dL (8.4-10.2); Carbon Dioxide 24 mmol/L (22-29); Chloride 109 mmol/L (96-108); Creatinine Clr Calc Pharmacy 80.8; Estimated Glomerular Filt Rate > 60; Glucose Random 160 mg/dL (60-115); Lipase 58 U/L (8-78); Sodium 142 mmol/L (135-145); Total Protein 6.1 g/dL (6.5-8.0)
[2023-01-12 11:34] VITALS: BP 174/65; PULSE 128; RESP 15; TEMP 36.9; O2SAT 95
[2023-01-12 13:46] VITALS: BP 172/73; PULSE 75; RESP 15; TEMP 36.8; O2SAT 95
[2023-01-12 13:57] LABS: INTERNATIONAL NORM RATIO 1.2 (0.9-1.1); Prothrombin Time 14.8 SEC (11.1-13.3)
[2023-01-12 13:59] LABS: Partial Thromboplastin Time 29.7 SEC (26.0-36.4)
[2023-01-12] MEDS: Lidocaine HCl 1 % MPF 5 ML VIAL SUBCUT (16:40)
--- NOTE | 2023-01-12 16:43 | PC.NURSE ---
pt transported for U/s. c/o headache and nausea just b/f procedure.
[2023-01-12 17:21] LABS: MN% 89.7 %; PMN% 10.3 %; WBC Peritoneal Fluid 0.352 X10*3/uL
[2023-01-12] MEDS: oxyCODONE HCl Immed Release 5 MG TABLET 2.5 MG PO (17:32)
[2023-01-12] MEDS: Ondansetron ODT 4 MG TAB.RAPDIS TRANSLINGU (17:32)
[2023-01-12 17:33] VITALS: BP 153/56; PULSE 76; RESP 18; TEMP 37; O2SAT 93
--- NOTE | 2023-01-12 17:34 | PC.NURSE ---
reports improvement in diffuse abd pain following procedure. states that fluid was removed.
[2023-01-12 18:07] LABS: RBC Peritoneal Fluid < 0.002 X10*6/uL
[2023-01-12 19:00] LABS: BF Shift QC OK YES; Man Diluent Bkgrd OK YES
[2023-01-12 19:05] LABS: Monocytes Peritoneal Fl 42 %
[2023-01-12 19:06] LABS: Lymphocyte Peritoneal Fl 48 %; Neutrophils Peritoneal Fluid 10 %
[2023-01-12 20:42] LABS: Albumin Peritoneal Fluid 1.4 GM/DL; Glucose Peritoneal Fluid 132 MG/DL; LDH Peritoneal Fluid 58 U/L; Total Protein Peritoneal Fluid 2.1 GM/DL
[2023-01-15 08:22] LABS: Amylase Peritoneal Fluid 43
== END 2023-01-12 20:15 | disposition home or self-care (01) ==
PROVIDERS: Emergency Medicine; Radiology Diagnostic Radiology; Emergency Provider Emergency Medicine; PCP Internal Medicine
DX: R18.8 Other ascites (principal); K74.60 Unspecified cirrhosis of liver; R53.83 Other fatigue; R11.0 Nausea; D61.818 Other pancytopenia; E11.9 Type 2 diabetes mellitus without complications; I10 Essential (primary) hypertension; Z79.4 Long term (current) use of insulin; Z79.899 Other long term (current) drug therapy
CPT/HCPCS: 36415; 49083; 76700; 80053; 82042; 82150; 82945; 83615; 83690; 84157; 85025; 85610; 85730; 87070; 87073; 87205; 88112; 88305; 89051; 99284

== ENCOUNTER → 2023-01-12 10:56 | Outpatient (BNV) | payer MEDICARE, OTHER, SELFPAY | PROVIDERS: Emergency Provider Emergency Medicine; PCP Internal Medicine; Visit Provider Radiology Diagnostic Radiology | DX: R18.8 Other ascites (principal) | CPT/HCPCS: 49083 ==

== ENCOUNTER 2023-01-23 07:28 | Emergency (ER) | payer MEDICARE, OTHER, SELFPAY ==
[2023-01-23 07:43] VITALS: BP 161/74; PULSE 83; RESP 16; TEMP 36.3; O2SAT 94; BMI 28.9
[2023-01-23 07:58] LABS: MANUAL DIFF FLAG NO
[2023-01-23 08:05] LABS: Basophils Percent Auto 0.3 % (0-2); Eosinophils Absolute Auto 0.1 X10*3/uL (0.0-0.4); Eosinophils Percent Auto 1.8 % (0-4); Hematocrit 36.5 % (37.0-47.0); Hemoglobin 11.6 g/dl (12.0-16.0); Imm Gran Abs Auto 0.01 X10*3/uL (0.00-0.03); Imm Gran Pct Auto 0.3 % (0.0-0.4); Lymphocytes Absolute Auto 0.4 X10*3/uL (1.2-4.9); Lymphocytes Percent Auto 10.4 % (20-40); Mean Corpuscular HGB Conc 31.8 g/dl (31.0-35.0); Mean Corpuscular Volume 91.3 fL (80.0-98.0); Mean Platelet Volume 10.4 fL (9.4-12.3); Monocytes Absolute Auto 0.3 X10*3/uL (0.1-1.2); Monocytes Percent Auto 6.8 % (2-11); Neutrophils Absolute Auto 3.1 x10*3/uL (2.0-8.3); Neutrophils Percent Auto 80.4 % (45-73); Platelet Count 47 X10*3/uL (160-400); Red Cell Distribution Width 16.7 % (11.0-16.0); White Blood Count 3.8 X10*3/uL (4.8-10.8)
[2023-01-23 08:18] LABS: Alanine Aminotransferase 9 U/L (0-31); Albumin Level 3.7 g/dL (3.5-5.0); Alkaline Phosphatase 59 U/L (39-117); Anion Gap 11 (12-20); Aspartate Amino Transferase 18 U/L (5-31); Bilirubin Direct 0.7 mg/dL (0.0-0.5); Bilirubin Total 2.9 mg/dL (0.0-1.0); Blood Urea Nitrogen 13 mg/dL (9-16); Calcium 9.2 mg/dL (8.4-10.2); Carbon Dioxide 28 mmol/L (22-29); Chloride 105 mmol/L (96-108); Creatinine Clr Calc Pharmacy 53.4; Estimated Glomerular Filt Rate 52; Glucose Random 197 mg/dL (60-115); Lipase 50 U/L (8-78); Potassium 3.9 mmol/L (3.3-5.1); Sodium 140 mmol/L (135-145); Total Protein 6.6 g/dL (6.5-8.0)
--- NOTE | 2023-01-23 09:05 | ED_ITS ---
HPI - General Adult General Chief complaint: General Medical Stated complaint: Nausea/Weakness Time Seen by Provider: 01/23/23 08:57 Source: patient Mode of arrival: ambulatory Limitations: no limitations History of Present Illness HPI narrative: 77-year-old female with PMH of FINE cirrhosis, portal hypertension, portal vein thrombosis on Lovenox, thrombocytopenia, history of bleeding esophageal varices, HLD, and HTN. Patient presented with nausea for the past few weeks and feeling distended and bloated abdomen with decreased p.o. intake, patient declined vomiting, no diarrhea, no constipation, passing flatus, last bowel movement was last night and was normal with no bleeding with stool of brown color, patient tried to contact her GI for appointment with no call back. Patient was seen 3 weeks ago in the department for similar above symptoms had a CT which shows chronic changes but no acute finding on the CT and patient was diagnosed with UTI, patient also had paracentesis by IR 10 days ago and had 4.4 L of ascitic fluid removed. Last endoscopic study by her neighborhood service center director was more than few years ago. Past abdominal surgical history significant for cholecystectomy and hysterectomy. Related Data Home Medications Medication Instructions Recorded Confirmed citalopram 20 mg tablet 1 tab PO DAILY 06/10/22 06/10/22 furosemide 20 mg tablet 1 tab PO DAILY 06/10/22 06/10/22 gabapentin 300 mg capsule 1 cap PO BEDTIME 06/10/22 06/10/22 glipizide 10 mg tablet 1 tab PO BID 06/10/22 06/10/22 hydrochlorothiazide 25 mg tablet 1 tab PO DAILY 06/10/22 06/10/22 insulin degludec 200 unit/mL (3 72 unit subcut BID 06/10/22 06/10/22 mL) subcutaneous pen (Tresiba FlexTouch U-200 insulin) lorazepam 1 mg tablet 1 tab PO BEDTIME PRN anxiety 06/10/22 06/10/22 pravastatin 40 mg tablet 1 tab PO DAILY 06/10/22 06/10/22 propranolol 20 mg tablet 1 tab PO BID 06/10/22 06/10/22 sitagliptin phosphate 100 mg 1 tab PO DAILY 06/10/22 06/10/22 tablet (Januvia) Previous Rx's Medication Instructions Recorded omeprazole 40 mg capsule,delayed 40 mg PO BID@0677,0600 #60 caps 06/12/22 release sucralfate 1 gram tablet 1 g PO BID #60 tabs 06/12/22 nitrofurantoin 100 mg PO Q12H 5 days #10 caps 01/06/23 monohydrate/macrocrystals 100 mg capsule (Macrobid) ondansetron 4 mg disintegrating 4 mg PO Q8H PRN nausea and 01/06/23 tablet vomiting #8 tabs nitrofurantoin 100 mg PO Q12H 7 days #14 caps 01/23/23 monohydrate/macrocrystals 100 mg capsule (Macrobid) Allergies Allergy/AdvReac Type Severity Reaction Status Date / Time erythromycin base Allergy Mild HIVES Verified 01/12/23 07:58 [Erythromycin Base] Iodinated Contrast Media Allergy Mild HIVES Verified 01/12/23 07:58 [IV Dye, Iodine Containing] penicillin G [Penicillin G] Allergy Mild HIVES Verified 01/12/23 07:58 penicillin V Allergy Unknown anaphylaxis Verified 01/12/23 07:58 clindamycin [Clindamycin] AdvReac Mild SEVERE Verified 01/12/23 07:58 DIARRHEA Clindamycin Palmitate HCl Allergy Unknown anaphylaxis Uncoded 01/12/23 07:58 Erythromycin Allergy Unknown Unknown Uncoded 01/12/23 07:58 Review of Systems Review of Systems: All other systems are reviewed and are negative Constitutional: Reports as per HPI and Reports no additional constitutional complaints Eyes: Reports as per HPI and Reports no additional eye complaints Reports system reviewed and no additional complaints, except as documented Cardiovascular: Reports as per HPI and Reports no additional cardiovascular complaints Respiratory: Reports as per HPI and Reports no additional respiratory complaints Gastrointestinal: Reports as per HPI and Reports no additional gastrointestinal complaints Genitourinary: Reports no additional female genitourinary complaints Musculoskeletal: Reports no additional musculoskeletal complaints Skin/Breast: Reports system reviewed and no additional complaints, except as docu Psychiatric: Reports no additional psychiatric complaints Endocrine: Reports no additional endocrine complaints Hematologic/Lymphatic: Reports no additional hematologic/lymphatic complaints Allergic/Immunologic: Reports no additional allergic/immunologic complaints Reports system reviewed and no additional complaints, except as documented and Reports Abnormal speech present [facility], [facility] Past Medical History Medical History Cirrhosis of liver Diabetes Esophageal and gastric varices FH: irritable bowel syndrome Hypertension Social History Social History Household Members: Spouse and Children Housing: House Do you presently have visiting nurse or other home services: No Alcohol intake: never Patient Tobacco Use Status: Never used Tobacco Smoked in Last 30 Days: No Use of substances other than those prescribed or required for medical reasons: No Advance Directives: Yes Advance Directives Information Provided: Yes Advance Directives on File: No service: No Current occupational status: retired Physical Exam ED Vital Signs: Vital Signs - 24 hr 01/23/23 07:43 01/23/23 09:12 01/23/23 13:29 Temperature 97.4 F 98.5 F 98.4 F Pulse Rate 83 77 75 Respiratory Rate 16 16 16 Blood Pressure 161/74 H 165/78 H 157/78 H Pulse Oximetry 94 94 95 Oxygen Delivery Method Room Air Room Air Room Air 01/23/23 14:56 Temperature 98.6 F Pulse Rate 74 Respiratory Rate 16 Blood Pressure 156/75 H Pulse Oximetry 92 Oxygen Delivery Method Room Air BMI result Body Mass Index 28.9 Vital signs have been reviewed as appeared to be correct. Blood pressure normal. Heart rate normal. Respiration rate normal. Temperature normal. Oxygen saturation normal. Appearance: Alert. Oriented X3. No acute distress. Head: Normal external exam. Normocephalic. Atraumatic. No Garrett signs noted. No raccoon eyes noted Eyes: PERRLA. EOMI. Conjunctiva and sclera normal. Eyelids normal. ENT: TM's Normal. Pharynx normal. Uvula midline. Moist mucous membranes. No t rismus noted. No drooling noted. No muffled voice noted. Neck: Normal inspection. Neck supple. FROM. No adenopathy. Thyroid Normal. No meningeal signs. No neck mass noted. CVS: Normal heart rate and rhythm. Heart sound normal. No murmurs noted. Pulses normal throughout. Respiratory: No respiratory distress. Painless inspiration. Breath sounds normal. No wheezes/rales/rhonchi noted. Chest nontender. No accessory muscle usage noted or decreased air movement noted. Abdomen: Soft and nontender. Bowel sounds normal in all 4 quadrants. No distention noted. No organomegaly noted. No visible injury noted. Back: No CVA tenderness. Full range of motion noted. Skin: Skin warm and dry. Normal skin color. Normal skin turgor. No rashes/lesions/lacerations noted. Extremities: No lower extremity edema. Extremities exhibit normal range of motion. Extremities nontender. Neuro: Oriented X 3. Cranial nerve exam: II-XII are grossly intact No motor deficit. No sensory deficit. Reflexes normal. Course Course Course Narrative: 77-year-old female with history of Fine cirrhosis came in with distended abdomen and generalized weakness, INR 10 days ago was 1.2, patient s/p paracentesis with 3 L was drained, no abdominal pain, no white count, no fever with no suspicion of SBP. Well infuse albumin IV, patient with UTI and UA will start the patient on Macrobid. Medications Administered Discontinued Medications Generic Name Dose Route Start Last Admin Trade Name Freq PRN Reason Stop Dose Admin Sodium Chloride 1,000 mls @ 999 mls/hr 01/23/23 09:03 01/23/23 10:20 Ns IV 01/23/23 10:03 Infused .Q1H1M ONE Infusion Ondansetron HCl 4 mg 01/23/23 09:03 01/23/23 09:20 Ondansetron Hcl 4 Mg/2 Ml Vial IVPUSH 01/23/23 09:04 4 mg ONCE ONE Administration Procedures Paracentesis Time Out Performed: Yes Local Anesthetic: lidocaine 1% Amount of anesthesia used (mL): 5 Fluid: clear Post Procedure Exam: awake, alert, normal BP, normal HR and normal SpO2 Patient Tolerated Procedure: well and no complications Complications: none Medical Decision Making Differential Diagnosis Differential Diagnoses: The differential diagnosis associated with the presentation includes (Severe ascites with abdominal distension, SBP, severe anemia, electrolyte abnormality, UTI.) Admission/Observation Consideration of admission/observation: Escalation of care including admission/observation considered Lab Data MDM Lab Attestation statement: I reviewed the patient's lab results. 01/23/23 07:54 01/23/23 07:54 Labs: Lab Results 01/23/23 01/23/23 01/23/23 Range/Units 07:54 07:54 14:25 WBC 3.8 L (4.8-10.8) X10*3/uL RBC 4.00 L (4.20-5.50) X10*6/uL Hgb 11.6 L (12.0-16.0) g/dl Hct 36.5 L (37.0-47.0) % MCV 91.3 (80.0-98.0) fL MCH 29.0 (27.0-33.0) pg MCHC 31.8 (31.0-35.0) g/dl RDW 16.7 H (11.0-16.0) % Plt Count 47 L D (160-400) X10*3/uL MPV 10.4 (9.4-12.3) fL Immature Gran % (Auto) 0.3 (0.0-0.4) % Neut % (Auto) 80.4 H (45-73) % Lymph % (Auto) 10.4 L (20-40) % [place] % (Auto) 6.8 (2-11) % Eos % (Auto) 1.8 (0-4) % Baso % (Auto) 0.3 (0-2) % Lymph # (Auto) 0.4 L (1.2-4.9) X10*3/uL [place] # (Auto) 0.3 (0.1-1.2) X10*3/uL Eos # (Auto) 0.1 (0.0-0.4) X10*3/uL Baso # (Auto) 0.0 (0.0-0.2) X10*3/uL Abs Immat Gran (auto) 0.01 (0.00-0.03) X10*3/uL Absolute Neuts (auto) 3.1 (2.0-8.3) x10*3/uL Absolute Nucleated RBC 0.000 (0.0-0.012) X10*3/uL Nucleated RBC % (auto) 0.0 (0.0-0.2) /100WBC Sodium 140 (135-145) mmol/L Potassium 3.9 (3.3-5.1) mmol/L Chloride 105 (96-108) mmol/L Carbon Dioxide 28 (22-29) mmol/L Anion Gap 11 L (12-20) BUN 13 (9-16) mg/dL Creatinine 1.03 (0.5-1.4) mg/dL Estim Creat Clear Calc 53.4 Estimated GFR 52 Random Glucose 197 H (60-115) mg/dL Calcium 9.2 (8.4-10.2) mg/dL Total Bilirubin 2.9 H (0.0-1.0) mg/dL Direct Bilirubin 0.7 H (0.0-0.5) mg/dL AST 18 (5-31) U/L ALT 9 (0-31) U/L Alkaline Phosphatase 59 (39-117) U/L Total Protein 6.6 (6.5-8.0) g/dL Albumin 3.7 (3.5-5.0) g/dL Lipase 50 (8-78) U/L Urine Color Dark Yellow Urine Appearance Turbid Urine pH 5.5 (5.0-9.0) Ur Specific [place] >= 1.030 H (1.005-1.025) Urine Protein 100 (2+) H (Neg-Trace) mg/dL Urine Glucose (UA) Negative (Negative) mg/dL Urine Ketones Trace (Negative) mg/dL Urine Blood Moderate (2+) H (Negative) Urine Nitrite Negative (Negative) Ur Leukocyte Esterase Moderate (2+) H (Negative) Urine RBC 3-5 H (0-2) /HPF Urine WBC 11-20 H (0-5) /HPF Ur Squamous Epith Cells 3-5 (0-2) /HPF Urine Bacteria 2+ (None Seen) Chronic Conditions Patient?s care impacted by: Other (Liver cirrhosis) Discharge Plan Discharge Clinical Impression: Cirrhosis of liver, Ascites, Acute UTI Patient Disposition: Home, Self-Care Instructions: Urinary Tract Infection in Women (ED), Ascites (ED) Prescriptions: New nitrofurantoin monohyd/m-cryst [Macrobid] 100 mg capsule 100 mg PO Q12H 7 Days Qty: 14 0RF Rx Instructions: must administer with a meal/food No Action pravastatin 40 mg tablet 1 tab PO DAILY glipizide 10 mg tablet 1 tab PO BID citalopram 20 mg tablet 1 tab PO DAILY gabapentin 300 mg capsule 1 cap PO BEDTIME hydrochlorothiazide 25 mg tablet 1 tab PO DAILY furosemide 20 mg tablet 1 tab PO DAILY insulin degludec [Tresiba FlexTouch U-200] 200 unit/mL (3 mL) insulin pen 72 unit subcut BID propranolol 20 mg tablet 1 tab PO BID lorazepam 1 mg tablet 1 tab PO BEDTIME PRN (Reason: anxiety) Januvia 100 mg tablet 1 tab PO DAILY sucralfate 1 gram Tablet 1 g PO BID Qty: 60 0RF omeprazole 40 mg Capsule,Delayed Release(Dr/Ec) 40 mg PO BID@0630,1630 Qty: 60 0RF nitrofurantoin monohyd/m-cryst [Macrobid] 100 mg capsule 100 mg PO Q12H 5 Days Qty: 10 0RF Rx Instructions: must administer with a meal/food ondansetron 4 mg tablet,disintegrating 4 mg PO Q8H PRN (Reason: nausea and vomiting) Qty: 8 0RF
[2023-01-23 09:12] VITALS: BP 165/78; PULSE 77; RESP 16; TEMP 36.9; O2SAT 94
[2023-01-23] MEDS: 0.9 % Sodium Chloride 1,000 ML 999 ML IV (09:18)
[2023-01-23] MEDS: ondansetron HCL 4 MG/2 ML VIAL IVPUSH (09:20)
--- NOTE | 2023-01-23 09:26 | PC.NURSE ---
a&ox3, calm & cooperative, 20gIV placed in the right AC w/o complications. IVF and medications administered per provider order. lights dimmed, call brothers placed within reach. will continue to monitor.
[2023-01-23 13:29] VITALS: BP 157/78; PULSE 75; RESP 16; TEMP 36.9; O2SAT 95
[2023-01-23 14:49] LABS: Appearance Urine Turbid; Color Urine Dark Yellow; Glucose Urine UA Negative (Negative); Leukocyte Esterase Urine Moderate (2+) (Negative); Nitrite Urine Negative (Negative); PH 5.5 (5.0-9.0); Specific Gravity - Urine >= 1.030 (1.005-1.025); UMIC TRIGGER UACC YES; Urine Blood Moderate (2+) (Negative); Urine Ketones Trace mg/dL (Negative); Urine Protein 100 (2+) mg/dL (Neg-Trace)
[2023-01-23 14:56] VITALS: BP 156/75; PULSE 74; RESP 16; TEMP 37; O2SAT 92
[2023-01-23 15:12] LABS: UACC Culture Trigger YES
[2023-01-23 15:13] LABS: Bacteria Urine 2+ (None Seen)
[2023-01-23 15:41] LABS: Hyaline Casts Urine 0-2 /LPF (0-2)
[2023-01-23] MEDS: Albumin Human 25 % 100 ML IV (15:43)
[2023-01-23] MEDS: Lidocaine HCl 1 % MPF 5 ML VIAL SUBCUT (15:47)
[2023-01-23] MEDS: Nitrofurantoin Monohyd/M-Cryst 100 MG CAPSULE PO (15:48)
[2023-01-23 15:50] VITALS: BP 162/60; PULSE 69; RESP 14; TEMP 36.5; O2SAT 92
--- NOTE | 2023-01-23 15:53 | PC.NURSE ---
a&ox3, vss, medication administered per provider order.
== END 2023-01-23 17:02 | disposition home or self-care (01) ==
PROVIDERS: Emergency Provider Emergency Medicine; PCP Internal Medicine
DX: K75.81 Nonalcoholic steatohepatitis (NASH) (principal); R18.8 Other ascites; N39.0 Urinary tract infection, site not specified; E11.9 Type 2 diabetes mellitus without complications; I10 Essential (primary) hypertension; D64.9 Anemia, unspecified; Z90.49 Acquired absence of other specified parts of digestive tract; Z90.710 Acquired absence of both cervix and uterus; Z79.4 Long term (current) use of insulin; Z79.899 Other long term (current) drug therapy
CPT/HCPCS: 36415; 49082; 80048; 80076; 81001; 83690; 85025; 87086; 96361; 96374; 96375; 99284; 99285; J2405; P9047

== ENCOUNTER 2023-04-07 07:08 | Emergency (ER) | payer MEDICARE, OTHER, SELFPAY ==
--- NOTE | ~2023-04-07 | US_ITS ---
EXAMINATION: US ABDOMEN LIMITED CLINICAL INFORMATION: Abdominal distention. Liver cirrhosis. COMPARISON: Most recent abdominal ultrasound and paracentesis dated 01/12/2023. TECHNIQUE: Real-time imaging of the right upper quadrant abdominal viscera. FINDINGS: Moderate ascites, slightly more prominent when compared to the ultrasound dated 01/12/2023. US/US abdomen limited IMPRESSION: Moderate ascites, slightly more prominent when compared to the ultrasound dated 01/12/2023.
[2023-04-07 07:31] VITALS: BP 156/75; PULSE 75; RESP 18; TEMP 36.7; O2SAT 94; BMI 34.3
--- NOTE | 2023-04-07 07:39 | PC.NURSE ---
patient also reporting issues with her feet upon waking, stating that her toes appear to be purple.
--- NOTE | 2023-04-07 08:04 | ED_ITS ---
HPI - Abdominal Pain General Chief Complaint: Abdominal Pain Stated Complaint: abd swelling retaining fluids Time Seen by Provider: 04/07/23 07:18 Source: patient and family Mode of arrival: ambulatory Limitations: no limitations History of Present Illness HPI narrative: 77-year-old female with PMH of FINE cirrhosis, portal hypertension, portal vein thrombosis NO longer on Lovenox, thrombocytopenia, history of bleeding esophageal varices, HLD, and HTN here with complaints of one week of abdominal swelling, discomfort and nausea. Patient last paracentesis was 01/23. Her [place] [facility] [place] has not notified them of this change this week. She is on lasix. She denies fevers, chills, vomiting, diarrhea, constipation or diff breathing. Related Data Home Medications Medication Instructions Recorded Confirmed citalopram 20 mg tablet 1 tab PO DAILY 06/10/22 06/10/22 furosemide 20 mg tablet 1 tab PO DAILY 06/10/22 06/10/22 gabapentin 300 mg capsule 1 cap PO BEDTIME 06/10/22 06/10/22 glipizide 10 mg tablet 1 tab PO BID 06/10/22 06/10/22 hydrochlorothiazide 25 mg tablet 1 tab PO DAILY 06/10/22 06/10/22 insulin degludec 200 unit/mL (3 72 unit subcut BID 06/10/22 06/10/22 mL) subcutaneous pen (Tresiba FlexTouch U-200 insulin) lorazepam 1 mg tablet 1 tab PO BEDTIME PRN anxiety 06/10/22 06/10/22 pravastatin 40 mg tablet 1 tab PO DAILY 06/10/22 06/10/22 propranolol 20 mg tablet 1 tab PO BID 06/10/22 06/10/22 sitagliptin phosphate 100 mg 1 tab PO DAILY 06/10/22 06/10/22 tablet (Januvia) Previous Rx's Medication Instructions Recorded omeprazole 40 mg capsule,delayed 40 mg PO BID@0630,1630 #60 caps 06/12/22 release sucralfate 1 gram tablet 1 g PO BID #60 tabs 06/12/22 nitrofurantoin 100 mg PO Q12H 5 days #10 caps 01/06/23 monohydrate/macrocrystals 100 mg capsule (Macrobid) ondansetron 4 mg disintegrating 4 mg PO Q8H PRN nausea and 01/06/23 tablet vomiting #8 tabs nitrofurantoin 100 mg PO Q12H 7 days #14 caps 01/23/23 monohydrate/macrocrystals 100 mg capsule (Macrobid) Allergies Allergy/AdvReac Type Severity Reaction Status Date / Time erythromycin base Allergy Mild HIVES Verified 01/12/23 07:58 [Erythromycin Base] Iodinated Contrast Media Allergy Mild HIVES Verified 01/12/23 07:58 [IV Dye, Iodine Containing] penicillin G [Penicillin G] Allergy Mild HIVES Verified 01/12/23 07:58 penicillin V Allergy Unknown anaphylaxis Verified 01/12/23 07:58 clindamycin [Clindamycin] AdvReac Mild SEVERE Verified 01/12/23 07:58 DIARRHEA Clindamycin Palmitate HCl Allergy Unknown anaphylaxis Uncoded 01/12/23 07:58 Erythromycin Allergy Unknown Unknown Uncoded 01/12/23 07:58 Review of Systems Review of Systems Yes all other systems are reviewed and are negative Constitutional: Reports no additional constitutional complaints, Denies body ache(s), Denies chills, Denies fever(s), Denies headache(s) and Denies weakness Eyes: Reports no additional eye complaints and Denies change in vision Reports system reviewed and no additional complaints, except as documented, Denies dizziness, Denies headache(s), Denies nasal congestion, Denies nasal discharge and Denies neck pain Cardiovascular: Reports no additional cardiovascular complaints, Denies chest pain, Denies leg edema and Denies dyspnea Respiratory: Reports no additional respiratory complaints, Denies cough and Denies dyspnea Gastrointestinal: Reports no additional gastrointestinal complaints, Denies abdominal pain, Denies constipation, Denies diarrhea, Reports nausea and Denies vomiting Genitourinary: Reports no additional female genitourinary complaints and Denies urinary incontinence Musculoskeletal: Reports no additional musculoskeletal complaints, Denies back pain, Denies arthralgias, Denies joint swelling, Denies neck pain, Denies numbness and Denies tingling Skin/Breast: Reports system reviewed and no additional complaints, except as docu and Denies rash Reports system reviewed and no additional complaints, except as documented, Denies dizziness, Denies headache(s), Denies numbness, Denies tingling and Denies weakness PMF Past Medical History Attestation statement: The following information was validated with the patient. Source: old records reviewed and nursing notes reviewed Medical History Esophageal and gastric varices FH: irritable bowel syndrome Hypertension Cirrhosis of liver Diabetes Social History Social History Household Members: Spouse and Children Housing: House Do you presently have visiting nurse or other home services: No Alcohol intake: never Patient Tobacco Use Status: Never used Tobacco Advance Directives: Yes Advance Directives Information Provided: No Advance Directives on File: No service: No Current occupational status: retired Physical Exam ED Vital Signs: Vital Signs - 24 hr 04/07/23 07:31 Temperature 98.1 F Pulse Rate 75 Respiratory Rate 18 Blood Pressure 156/75 H Pulse Oximetry 94 Oxygen Delivery Method Room Air BMI result Body Mass Index 34.3 Const General: cooperative, healthy appearing, comfortable and no acute distress Orientation/consciousness: patient oriented x3 Limitations: no limitations HENMT Head: Yes normal to inspection Ears: hearing grossly normal bilaterally Eyes General: appearance normal, both eyes and all related structures Pupils: Equal, round and reactive pupils present Neck Neck: Yes normal visual inspection, Yes full ROM, Yes no lymphadenopathy and Yes no meningeal signs Chest Chest palpation & inspection: normal inspection of the chest Resp Effort & Inspection: normal respiratory effort Auscultation: clear to auscultation bilaterally Cardio Rate: regular rate Rhythm: regular rhythm Peripheral pulses: Peripheral pulses 2+ throughout GI Inspection: Yes distended Palpation (GI): Soft to palpation and nontender Auscultation: normal bowel sounds Back/Spine/Pelvis Thoracic/Lumbar Spine: thoracic and lumbar spine normal to inspection Skin General skin exam: no rashes or lesions noted Neuro General: patient oriented x3, moves all extremities and no meningeal signs Cranial nerves: Yes Equal, round and reactive pupils present Cognition (Neuro): normal cognition Gait exam (Neuro): Normal gait present Extrem General: Yes normal to inspection, Yes no pedal edema and Yes no calf tenderness Medical Decision Making Medical Decision Making MDM Narrative: 77-year-old female with PMH of FINE cirrhosis, portal hypertension, portal vein thrombosis NO longer on Lovenox, thrombocytopenia, history of bleeding esophageal varices, HLD, and HTN here with complaints of one week of abdominal swelling, discomfort and nausea. Patient last paracentesis was 01/23. Her GI doctor is [place] [facility] [place] She has not notified them of this change this week. She is on lasix. She denies fevers, chills, vomiting, diarrhea, constipation or diff breathing.? Abdomen distended. No focal TTP. Will need labs, ?paracentesis. Per US no IR services this weekend. We did do a bedside ultrasound. There is some ascites but no significant ascites. There is no tenderness on exam. There is no shortness of breath. I do not feel that the patient needs an emergent paracentesis. She has adequate follow-up with GI. She can touch base with them on Sunday to schedule an outpatient paracentesis. Certainly if she develops abdominal pain, fever, vomiting or any change of symptoms as we can she can return and we can reconsider at that time. Differential Diagnosis Differential Diagnoses: The differential diagnosis associated with the presentation includes low concern for SBP with no focal abdominal pain liver cirrhosis Admission/Observation Consideration of admission/observation: Escalation of care including admission/observation considered See discussion in [facility] Lab Data [facility] Lab Attestation statement: I reviewed the patient's lab results. Labs show pancytopenia at baseline, elevated LFTs at baseline 04/07/23 08:14 04/07/23 08:14 Labs: Lab Results 04/07/23 Range/Units 08:14 WBC 2.2 L (4.8-10.8) X10*3/uL RBC 3.43 L (4.20-5.50) X10*6/uL Hgb 10.2 L (12.0-16.0) g/dl Hct 31.4 L (37.0-47.0) % MCV 91.5 (80.0-98.0) fL MCH 29.7 (27.0-33.0) pg MCHC 32.5 (31.0-35.0) g/dl RDW 16.8 H (11.0-16.0) % Plt Count 37 L (160-400) X10*3/uL MPV 9.9 (9.4-12.3) fL Immature Gran % (Auto) 0.5 H (0.0-0.4) % Neut % (Auto) 77.5 H (45-73) % Lymph % (Auto) 11.0 L (20-40) % [place] % (Auto) 8.2 (2-11) % Eos % (Auto) 2.3 (0-4) % Baso % (Auto) 0.5 (0-2) % Lymph # (Auto) 0.2 L (1.2-4.9) X10*3/uL [place] # (Auto) 0.2 (0.1-1.2) X10*3/uL Eos # (Auto) 0.1 (0.0-0.4) X10*3/uL Baso # (Auto) 0.0 (0.0-0.2) X10*3/uL Abs Immat Gran (auto) 0.01 (0.00-0.03) X10*3/uL Absolute Neuts (auto) 1.7 L (2.0-8.3) x10*3/uL Absolute Nucleated RBC 0.000 (0.0-0.012) X10*3/uL Nucleated RBC % (auto) 0.0 (0.0-0.2) /100WBC Smear Tech's Comments VERIFIED PT 14.6 H (11.1-13.3) SEC INR 1.2 H (0.9-1.1) Sodium 141 (135-145) mmol/L Potassium 3.8 (3.3-5.1) mmol/L Chloride 106 (96-108) mmol/L Carbon Dioxide 26 (22-29) mmol/L Anion Gap 13 (12-20) BUN 14 (9-16) mg/dL Creatinine 0.85 (0.5-1.4) mg/dL Estim Creat Clear Calc 70.5 Estimated GFR > 60 Random Glucose 223 H (60-115) mg/dL Calcium 9.6 (8.4-10.2) mg/dL Total Bilirubin 1.7 H (0.0-1.0) mg/dL Direct Bilirubin 0.6 H (0.0-0.5) mg/dL AST 16 (5-31) U/L ALT 7 (0-31) U/L Alkaline Phosphatase 62 (39-117) U/L Total Protein 6.5 (6.5-8.0) g/dL Albumin 3.5 (3.5-5.0) g/dL Independent Interpretation I performed an independent interpretation of an: Ultrasound Radiology Impression Discussion of test interpretation with radiology: I have reviewed the radiologist's reading. Independent Historian Clinical information obtained from an independent historian. History obtained from or confirmed by: Spouse External Record Review External record reviewed: Outpatient record, Prior outpatient labs, Prior outpatient radiology and Outside ED record Discharge Plan Discharge Clinical Impression: Cirrhosis of liver Patient Disposition: Home, Self-Care Instructions: Cirrhosis (ED), Ascites (ED) Additional Instructions: Your labs are at your baseline. You have a small amount of fluid in your abdomen. We did not feel that you needed an emergent paracentesis. You can follow up outpatient with her Gastroenterology to schedule this. This weekend if you develop fever, vomiting, abdominal pain you should return to the emergency room. Prescriptions: No Action pravastatin 40 mg tablet 1 tab PO DAILY glipizide 10 mg tablet 1 tab PO BID citalopram 20 mg tablet 1 tab PO DAILY gabapentin 300 mg capsule 1 cap PO BEDTIME hydrochlorothiazide 25 mg tablet 1 tab PO DAILY furosemide 20 mg tablet 1 tab PO DAILY insulin degludec [Tresiba FlexTouch U-200] 200 unit/mL (3 mL) insulin pen 72 unit subcut BID propranolol 20 mg tablet 1 tab PO BID lorazepam 1 mg tablet 1 tab PO BEDTIME PRN (Reason: anxiety) Januvia 100 mg tablet 1 tab PO DAILY sucralfate 1 gram Tablet 1 g PO BID Qty: 60 0RF omeprazole 40 mg Capsule,Delayed Release(Dr/Ec) 40 mg PO BID@0630,1630 Qty: 60 0RF nitrofurantoin monohyd/m-cryst [Macrobid] 100 mg capsule 100 mg PO Q12H 7 Days Qty: 14 0RF Rx Instructions: must administer with a meal/food nitrofurantoin monohyd/m-cryst [Macrobid] 100 mg capsule 100 mg PO Q12H 5 Days Qty: 10 0RF Rx Instructions: must administer with a meal/food ondansetron 4 mg tablet,disintegrating 4 mg PO Q8H PRN (Reason: nausea and vomiting) Qty: 8 0RF Referrals: Skyler Hermosillo MD [Primary Care Provider] - 1 week Interventions: ED Discharge Assessment Last Done: 04/07/23 08:54 Discharge Date/Time: 04/07/23 08:55
--- NOTE | 2023-04-07 08:17 | PC.NURSE ---
remains alert and oriented, respirations even and unlabored. iv established, labs drawn and sent. ultrasound at bedside. at bedside, call brothers within reach
[2023-04-07 08:20] LABS: Basophils Percent Auto 0.5 % (0-2); Eosinophils Absolute Auto 0.1 X10*3/uL (0.0-0.4); Eosinophils Percent Auto 2.3 % (0-4); Hematocrit 31.4 % (37.0-47.0); Hemoglobin 10.2 g/dl (12.0-16.0); Imm Gran Abs Auto 0.01 X10*3/uL (0.00-0.03); Imm Gran Pct Auto 0.5 % (0.0-0.4); Lymphocytes Absolute Auto 0.2 X10*3/uL (1.2-4.9); Mean Corpuscular HGB Conc 32.5 g/dl (31.0-35.0); Mean Corpuscular Hemoglobin 29.7 pg (27.0-33.0); Mean Corpuscular Volume 91.5 fL (80.0-98.0); Mean Platelet Volume 9.9 fL (9.4-12.3); Monocytes Absolute Auto 0.2 X10*3/uL (0.1-1.2); Monocytes Percent Auto 8.2 % (2-11); Neutrophils Absolute Auto 1.7 x10*3/uL (2.0-8.3); Neutrophils Percent Auto 77.5 % (45-73); Red Blood Count 3.43 X10*6/uL (4.20-5.50); Red Cell Distribution Width 16.8 % (11.0-16.0); SCAN SMEAR FLAG 1
[2023-04-07 08:25] LABS: Platelet Count 37 X10*3/uL (160-400); White Blood Count 2.2 X10*3/uL (4.8-10.8)
[2023-04-07 08:27] LABS: MANUAL DIFF FLAG SCAN
[2023-04-07 08:33] LABS: Alanine Aminotransferase 7 U/L (0-31); Albumin Level 3.5 g/dL (3.5-5.0); Alkaline Phosphatase 62 U/L (39-117); Anion Gap 13 (12-20); Aspartate Amino Transferase 16 U/L (5-31); Bilirubin Direct 0.6 mg/dL (0.0-0.5); Bilirubin Total 1.7 mg/dL (0.0-1.0); Blood Urea Nitrogen 14 mg/dL (9-16); Calcium 9.6 mg/dL (8.4-10.2); Carbon Dioxide 26 mmol/L (22-29); Chloride 106 mmol/L (96-108); Creatinine Clr Calc Pharmacy 70.5; Estimated Glomerular Filt Rate > 60; Glucose Random 223 mg/dL (60-115); Potassium 3.8 mmol/L (3.3-5.1); Sodium 141 mmol/L (135-145); Total Protein 6.5 g/dL (6.5-8.0)
[2023-04-07 08:36] LABS: INTERNATIONAL NORM RATIO 1.2 (0.9-1.1); Prothrombin Time 14.6 SEC (11.1-13.3)
[2023-04-07 08:58] LABS: SLIDE REVIEW VERIFIED
== END 2023-04-07 08:55 | disposition home or self-care (01) ==
PROVIDERS: Nurse Practitioner Family; Emergency Provider Student in an Organized Health Care Education/Training Program; PCP Internal Medicine
DX: K75.81 Nonalcoholic steatohepatitis (NASH) (principal); R14.0 Abdominal distension (gaseous); E11.9 Type 2 diabetes mellitus without complications; I10 Essential (primary) hypertension; E78.5 Hyperlipidemia, unspecified; Z79.4 Long term (current) use of insulin; Z79.899 Other long term (current) drug therapy
CPT/HCPCS: 36415; 76705; 80048; 80076; 85025; 85610; 99284

== ENCOUNTER 2023-04-10 08:32 | Emergency (ER) | payer MEDICARE, OTHER, SELFPAY ==
[2023-04-10] VITALS (7 sets, daily range): BP systolic 139–149; BP diastolic 59–72; PULSE 77–87; RESP 14–18; TEMP 36.6; O2SAT 93–96; BMI 29.0
[2023-04-10 09:18] LABS: MANUAL DIFF FLAG NO
[2023-04-10 09:20] LABS: Basophils Percent Auto 0.6 % (0-2); Eosinophils Absolute Auto 0.1 X10*3/uL (0.0-0.4); Eosinophils Percent Auto 1.9 % (0-4); Hematocrit 36.4 % (37.0-47.0); Hemoglobin 11.8 g/dl (12.0-16.0); Imm Gran Abs Auto 0.01 X10*3/uL (0.00-0.03); Imm Gran Pct Auto 0.3 % (0.0-0.4); Lymphocytes Absolute Auto 0.4 X10*3/uL (1.2-4.9); Lymphocytes Percent Auto 12.2 % (20-40); Mean Corpuscular HGB Conc 32.4 g/dl (31.0-35.0); Mean Corpuscular Hemoglobin 29.9 pg (27.0-33.0); Mean Corpuscular Volume 92.4 fL (80.0-98.0); Mean Platelet Volume 9.6 fL (9.4-12.3); Monocytes Absolute Auto 0.2 X10*3/uL (0.1-1.2); Monocytes Percent Auto 7.1 % (2-11); Neutrophils Absolute Auto 2.4 x10*3/uL (2.0-8.3); Neutrophils Percent Auto 77.9 % (45-73); Red Blood Count 3.94 X10*6/uL (4.20-5.50); Red Cell Distribution Width 16.7 % (11.0-16.0); White Blood Count 3.1 X10*3/uL (4.8-10.8)
[2023-04-10 09:23] LABS: Platelet Count 44 X10*3/uL (160-400)
[2023-04-10 09:36] LABS: Alanine Aminotransferase 8 U/L (0-31); Albumin Level 3.8 g/dL (3.5-5.0); Alkaline Phosphatase 68 U/L (39-117); Anion Gap 13 (12-20); Aspartate Amino Transferase 17 U/L (5-31); Bilirubin Direct 0.8 mg/dL (0.0-0.5); Bilirubin Total 3.2 mg/dL (0.0-1.0); Blood Urea Nitrogen 13 mg/dL (9-16); Calcium 9.8 mg/dL (8.4-10.2); Carbon Dioxide 25 mmol/L (22-29); Chloride 107 mmol/L (96-108); Creatinine Clr Calc Pharmacy 63.3; Estimated Glomerular Filt Rate > 60; Glucose Random 230 mg/dL (60-115); Lipase 62 U/L (8-78); Potassium 3.9 mmol/L (3.3-5.1); Sodium 141 mmol/L (135-145); Total Protein 7.1 g/dL (6.5-8.0)
--- NOTE | 2023-04-10 10:51 | ED_ITS ---
HPI - Abdominal Pain General Chief Complaint: Abdominal Pain Stated Complaint: Stomach Pain Bloated Time Seen by Provider: 04/10/23 10:29 Source: patient and family Mode of arrival: ambulatory Limitations: no limitations History of Present Illness HPI narrative: 77-year-old female with PMH of FINE cirrhosis, portal hypertension, portal vein thrombosis on Lovenox, thrombocytopenia, history of bleeding esophageal varices, HLD, and HTN. Patient presented with nausea for the past few weeks and feeling distended and bloated abdomen with decreased p.o. intake, patient declined vomiting, no diarrhea, no constipation, passing flatus, last bowel movement was last night and was normal with no bleeding with stool of brown color, patient tried to contact her GI for appointment with no call back. Patient was seen 3 weeks ago in the department for similar above symptoms had a CT which shows chronic changes but no acute finding on the CT and patient was diagnosed with UTI, patient also had paracentesis in the ED about 10 weeks ago. Related Data Home Medications Medication Instructions Recorded Confirmed citalopram 20 mg tablet 1 tab PO DAILY 06/10/22 06/10/22 furosemide 20 mg tablet 1 tab PO DAILY 06/10/22 06/10/22 gabapentin 300 mg capsule 1 cap PO BEDTIME 06/10/22 06/10/22 glipizide 10 mg tablet 1 tab PO BID 06/10/22 06/10/22 hydrochlorothiazide 25 mg tablet 1 tab PO DAILY 06/10/22 06/10/22 insulin degludec 200 unit/mL (3 72 unit subcut BID 06/10/22 06/10/22 mL) subcutaneous pen (Tresiba FlexTouch U-200 insulin) lorazepam 1 mg tablet 1 tab PO BEDTIME PRN anxiety 06/10/22 06/10/22 pravastatin 40 mg tablet 1 tab PO DAILY 06/10/22 06/10/22 propranolol 20 mg tablet 1 tab PO BID 06/10/22 06/10/22 sitagliptin phosphate 100 mg 1 tab PO DAILY 06/10/22 06/10/22 tablet (Januvia) Previous Rx's Medication Instructions Recorded omeprazole 40 mg capsule,delayed 40 mg PO BID@0630,1630 #60 caps 06/12/22 release sucralfate 1 gram tablet 1 g PO BID #60 tabs 06/12/22 nitrofurantoin 100 mg PO Q12H 5 days #10 caps 01/06/23 monohydrate/macrocrystals 100 mg capsule (Macrobid) ondansetron 4 mg disintegrating 4 mg PO Q8H PRN nausea and 01/06/23 tablet vomiting #8 tabs nitrofurantoin 100 mg PO Q12H 7 days #14 caps 01/23/23 monohydrate/macrocrystals 100 mg capsule (Macrobid) Allergies Allergy/AdvReac Type Severity Reaction Status Date / Time erythromycin base Allergy Mild HIVES Verified 04/10/23 08:55 [Erythromycin Base] Iodinated Contrast Media Allergy Mild HIVES Verified 04/10/23 08:55 [IV Dye, Iodine Containing] penicillin G [Penicillin G] Allergy Mild HIVES Verified 04/10/23 08:55 penicillin V Allergy Unknown anaphylaxis Verified 04/10/23 08:55 clindamycin [Clindamycin] AdvReac Mild SEVERE Verified 04/10/23 08:55 DIARRHEA Clindamycin Palmitate HCl Allergy Unknown anaphylaxis Uncoded 01/12/23 07:58 Erythromycin Allergy Unknown Unknown Uncoded 01/12/23 07:58 Review of Systems Review of Systems All other systems are reviewed and are negative Constitutional: Reports as per HPI and Reports no additional constitutional complaints Eyes: Reports as per HPI and Reports no additional eye complaints Reports system reviewed and no additional complaints, except as documented Cardiovascular: Reports as per HPI and Reports no additional cardiovascular complaints Respiratory: Reports as per HPI and Reports no additional respiratory complaints Gastrointestinal: Reports as per HPI and Reports no additional gastrointestinal complaints Genitourinary: Reports no additional female genitourinary complaints Musculoskeletal: Reports no additional musculoskeletal complaints Skin/Breast: Reports system reviewed and no additional complaints, except as docu Psychiatric: Reports no additional psychiatric complaints Endocrine: Reports no additional endocrine complaints Hematologic/Lymphatic: Reports no additional hematologic/lymphatic complaints Allergic/Immunologic: Reports no additional allergic/immunologic complaints Reports system reviewed and no additional complaints, except as documented and Reports Abnormal speech present [facility], [facility] Past Medical History Medical History Esophageal and gastric varices FH: irritable bowel syndrome Hypertension Cirrhosis of liver Diabetes Social History Social History Household Members: Spouse and Children Housing: House Do you presently have visiting nurse or other home services: No Alcohol intake: never Patient Tobacco Use Status: Never used Tobacco Smoked in Last 30 Days: No Use of substances other than those prescribed or required for medical reasons: No Advance Directives: Yes Advance Directives Information Provided: Yes Advance Directives on File: No service: No Current occupational status: retired Physical Exam ED Vital Signs: Vital Signs - 24 hr 04/10/23 08:56 04/10/23 11:07 04/10/23 12:22 Temperature 97.8 F 97.8 F Pulse Rate 87 82 81 Respiratory Rate 16 18 15 Blood Pressure 149/67 H 144/67 H 145/72 H Pulse Oximetry 96 94 93 Oxygen Delivery Method Room Air Room Air Room Air 04/10/23 13:12 04/10/23 13:13 04/10/23 13:14 Temperature 97.8 F Pulse Rate 81 84 82 Respiratory Rate 16 Blood Pressure 139/59 L 140/59 H 139/59 L Pulse Oximetry 94 Oxygen Delivery Method Room Air BMI result Body Mass Index 29.0 Vital signs have been reviewed and appear to be correct. Blood pressure elevated. Heart rate normal. Respiratory rate normal. Temperature normal. Oxygen saturation normal. Appearance: Alert. Oriented X3. No acute distress. Head: Normal external exam. Normocephalic. Atraumatic. No Garrett signs noted. No raccoon eyes noted Eyes: PERRLA. EOMI. Conjunctiva and sclera normal. Eyelids normal. ENT: TM's Normal. Pharynx normal. Uvula midline. Moist mucous membranes. No trismus noted. No drooling noted. No muffled voice noted. Neck: Normal inspection. Neck supple. FROM. No adenopathy. Thyroid Normal. No meningeal signs. No neck mass noted. CVS: Normal heart rate and rhythm. Heart sound normal. No murmurs noted. Pulses normal throughout. Respiratory: No respiratory distress. Painless inspiration. Breath sounds normal. No wheezes/rales/rhonchi noted. Chest nontender. No accessory muscle usage noted or decreased air movement noted. Abdomen: Soft and nontender. Bowel sounds normal in all 4 quadrants. No distention noted. No organomegaly noted. No visible injury noted. Back: No CVA tenderness. Full range of motion noted. Skin: Skin warm and dry. Normal skin color. Normal skin turgor. No rashes/lesions/lacerations noted. Extremities: No lower extremity edema. Extremities exhibit normal range of motion. Extremities nontender. Neuro: Oriented X 3. Cranial nerve exam: II-XII are grossly intact No motor deficit. No sensory deficit. Reflexes normal. Course Reevaluation(s) Reevaluation #1: 77-year-old female with history of FINE and liver cirrhosis with ascites patient require peritoneal paracentesis periodically demanding paracentesis today due to abdominal bloating and distention. Ascites fluid analysis not consistent with SBP. Time: 14:24 Medical Decision Making Differential Diagnosis Differential Diagnoses: The differential diagnosis associated with the presentation includes ( SBP, abdominal distension, anemia, electrolyte abnormality.) Admission/Observation Consideration of admission/observation: Escalation of care including admission/observation considered Lab Data MDM Lab Attestation statement: I reviewed the patient's lab results. 04/10/23 09:07 04/10/23 09:07 Labs: Lab Results 04/10/23 04/10/23 04/10/23 Range/Units 09:07 11:27 13:33 WBC 3.1 L (4.8-10.8) X10*3/uL RBC 3.94 L (4.20-5.50) X10*6/uL Hgb 11.8 L (12.0-16.0) g/dl Hct 36.4 L (37.0-47.0) % MCV 92.4 (80.0-98.0) fL MCH 29.9 (27.0-33.0) pg MCHC 32.4 (31.0-35.0) g/dl RDW 16.7 H (11.0-16.0) % Plt Count 44 L (160-400) X10*3/uL MPV 9.6 (9.4-12.3) fL Immature Gran % (Auto) 0.3 (0.0-0.4) % Neut % (Auto) 77.9 H (45-73) % Lymph % (Auto) 12.2 L (20-40) % [place] % (Auto) 7.1 (2-11) % Eos % (Auto) 1.9 (0-4) % Baso % (Auto) 0.6 (0-2) % Lymph # (Auto) 0.4 L (1.2-4.9) X10*3/uL [place] # (Auto) 0.2 (0.1-1.2) X10*3/uL Eos # (Auto) 0.1 (0.0-0.4) X10*3/uL Baso # (Auto) 0.0 (0.0-0.2) X10*3/uL Abs Immat Gran (auto) 0.01 (0.00-0.03) X10*3/uL Absolute Neuts (auto) 2.4 (2.0-8.3) x10*3/uL Absolute Nucleated RBC 0.000 (0.0-0.012) X10*3/uL Nucleated RBC % (auto) 0.0 (0.0-0.2) /100WBC PT 14.9 H (11.1-13.3) SEC INR 1.2 H (0.9-1.1) APTT 28.4 (26.0-36.4) SEC Sodium 141 (135-145) mmol/L Potassium 3.9 (3.3-5.1) mmol/L Chloride 107 (96-108) mmol/L Carbon Dioxide 25 (22-29) mmol/L Anion Gap 13 (12-20) BUN 13 (9-16) mg/dL Creatinine 0.87 (0.5-1.4) mg/dL Estim Creat Clear Calc 63.3 Estimated GFR > 60 Random Glucose 230 H (60-115) mg/dL Calcium 9.8 (8.4-10.2) mg/dL Total Bilirubin 3.2 H (0.0-1.0) mg/dL Direct Bilirubin 0.8 H (0.0-0.5) mg/dL AST 17 (5-31) U/L ALT 8 (0-31) U/L Alkaline Phosphatase 68 (39-117) U/L Total Protein 7.1 (6.5-8.0) g/dL Albumin 3.8 (3.5-5.0) g/dL Lipase 62 (8-78) U/L Peritoneal WBC 0.331 X10*3/uL Peritoneal RBC < 0.002 X10*6/uL Chronic Conditions Patient?s care impacted by: Other ( Nonalcoholic liver cirrhosis) Medications Administered Discontinued Medications Generic Name Dose Route Start Last Admin Trade Name Freq PRN Reason Stop Dose Admin Lidocaine HCl 5 ml 04/10/23 10:56 04/10/23 11:05 Lidocaine Hcl 1 % Mpf 5 Ml Vial SUBCUT 04/10/23 10:57 5 ml ONCE ONE Administration Discharge Plan Discharge Clinical Impression: S/P abdominal paracentesis Cirrhosis of liver Qualifiers: Hepatic cirrhosis type: unspecified hepatic cirrhosis Ascites presence: with ascites Qualified Code(s): K74.60 - Unspecified cirrhosis of liver Patient Disposition: Home, Self-Care Instructions: Cirrhosis (ED) Prescriptions: No Action pravastatin 40 mg tablet 1 tab PO DAILY glipizide 10 mg tablet 1 tab PO BID citalopram 20 mg tablet 1 tab PO DAILY gabapentin 300 mg capsule 1 cap PO BEDTIME hydrochlorothiazide 25 mg tablet 1 tab PO DAILY furosemide 20 mg tablet 1 tab PO DAILY insulin degludec [Tresiba FlexTouch U-200] 200 unit/mL (3 mL) insulin pen 72 unit subcut BID propranolol 20 mg tablet 1 tab PO BID lorazepam 1 mg tablet 1 tab PO BEDTIME PRN (Reason: anxiety) Januvia 100 mg tablet 1 tab PO DAILY sucralfate 1 gram Tablet 1 g PO BID Qty: 60 0RF omeprazole 40 mg Capsule,Delayed Release(Dr/Ec) 40 mg PO BID@0630,1630 Qty: 60 0RF nitrofurantoin monohyd/m-cryst [Macrobid] 100 mg capsule 100 mg PO Q12H 7 Days Qty: 14 0RF Rx Instructions: must administer with a meal/food nitrofurantoin monohyd/m-cryst [Macrobid] 100 mg capsule 100 mg PO Q12H 5 Days Qty: 10 0RF Rx Instructions: must administer with a meal/food ondansetron 4 mg tablet,disintegrating 4 mg PO Q8H PRN (Reason: nausea and vomiting) Qty: 8 0RF Referrals: Skyler Hermosillo MD [Primary Care Provider] -
[2023-04-10] MEDS: Lidocaine HCl 1 % MPF 5 ML VIAL SUBCUT (11:05)
[2023-04-10 11:50] LABS: INTERNATIONAL NORM RATIO 1.2 (0.9-1.1); Prothrombin Time 14.9 SEC (11.1-13.3)
[2023-04-10 11:53] LABS: Partial Thromboplastin Time 28.4 SEC (26.0-36.4)
--- NOTE | 2023-04-10 13:38 | PC.NURSE ---
para complete by md rubio ayt bedside. +CMS. talking, no distress. catheter removed by . multiple litres removed- approx 3.4L- dark yellow w/o blood or sediment noted. insertion site c/d/i.
[2023-04-10 13:53] LABS: MN% 87.4 %; PMN% 12.6 %; WBC Peritoneal Fluid 0.331 X10*3/uL
[2023-04-10 13:55] LABS: RBC Peritoneal Fluid < 0.002 X10*6/uL
[2023-04-10 14:29] LABS: Eosinophils Peritoneal Fl 1 %; Lymphocyte Peritoneal Fl 26 %; Monocytes Peritoneal Fl 3 %; Neutrophils Peritoneal Fluid 14 %; Other Peritioneal Fl 56 %
[2023-04-10 14:30] LABS: BF Shift QC OK YES; Man Diluent Bkgrd OK YES
[2023-04-10] MEDS: Albumin Human 25 % 100 ML IV (15:28)
--- NOTE | 2023-04-10 15:34 | PC.NURSE ---
patient a&ox3, vss, family at bedside, shelter monitor intact, pt states shes feeling better abdomen is softer, albumin hung per order, spoke to dr. galloway about potassium order as pt k is 3.9, he is going to review and let this nurse know if K should be given.
[2023-04-10 19:21] LABS: Creatinine Peritoneal Fluid 0.8 MG/DL; Glucose Peritoneal Fluid 204 MG/DL; LDH Peritoneal Fluid 55 U/L; Total Protein Peritoneal Fluid 2.1 GM/DL
[2023-04-11 08:10] LABS: Amylase Peritoneal Fluid 53
== END 2023-04-10 16:43 | disposition home or self-care (01) ==
PROVIDERS: Emergency Provider Emergency Medicine; PCP Internal Medicine
DX: R18.8 Other ascites (principal); R14.0 Abdominal distension (gaseous); K74.60 Unspecified cirrhosis of liver; E11.9 Type 2 diabetes mellitus without complications; I10 Essential (primary) hypertension; E78.5 Hyperlipidemia, unspecified; K75.81 Nonalcoholic steatohepatitis (NASH); Z79.4 Long term (current) use of insulin; Z79.899 Other long term (current) drug therapy
CPT/HCPCS: 36415; 49082; 80053; 82042; 82150; 82248; 82570; 82945; 83615; 83690; 84157; 85025; 85610; 85730; 89051; 99285; P9047

== ENCOUNTER 2023-05-12 09:21 | Emergency (ER) | payer MEDICARE, OTHER, SELFPAY ==
--- NOTE | ~2023-05-12 | CT_ITS ---
EXAMINATION: CT ABDOMEN AND PELVIS WITH CONTRAST CLINICAL INFORMATION: Abdominal pain. COMPARISON: CT abdomen and pelvis 01/06/2023, abdominal ultrasound 01/12/2023 TECHNIQUE: Multidetector volumetric images were obtained from the superior aspect of the liver through the pubic symphysis following administration 85 mL of Omnipaque 350 intravenous contrast. Sagittal and coronal reformatted images were obtained on the technologist's workstation. Oral contrast: No This CT examination was performed using dose optimization techniques as appropriate, variously including the following: *Automated exposure control *Adjustment of mA and/or kV according to patient size (this includes techniques or standardized protocols for targeted exams where dose is matched to indication/reason for exam; i.e. extremities or head) *Use of iterative reconstruction technique DLP: 875 mGy-cm FINDINGS: LUNG BASES: Small left pleural effusion. Three-vessel coronary artery calcium. LIVER, GALLBLADDER, AND BILIARY TREE: Cirrhosis without visible discrete liver mass. No biliary ductal dilatation. Cholelithiasis. Eccentric nonocclusive portal vein thrombus. PANCREAS: No discrete pancreatic mass. No ductal dilatation. SPLEEN: Enlarged spleen measuring 18-21 cm in length depending on measurement technique. Focal hypodensity in the superior pole spleen is nonspecific but most likely hemangioma. ADRENAL GLANDS: Unremarkable. KIDNEYS AND URETERS: Cortical thinning. lobulation. Small hypodensities are most likely cysts but not all of them can be definitively characterize. These are not significantly changed from prior. No hydroureteronephrosis. BLADDER: Unremarkable. GASTROINTESTINAL TRACT: The small and large bowel are normal in caliber. No evidence of bowel obstruction. Mild colonic diverticulosis without convincing evidence of diverticulitis. Small volume of ascites measures simple density. ABDOMINAL WALL: Small fat-containing umbilical hernia. LYMPH NODES: No lymphadenopathy. VASCULAR: No aortic aneurysm. Small calcified distal splenic artery aneurysm measuring 1.2 cm. PELVIC VISCERA: Hysterectomy. Small simple cyst in the right ovary. No follow-up is recommended. OSSEOUS STRUCTURES: Degenerative changes in the spine. CT/CT abdomen pelvis w IV con IMPRESSION: Cirrhosis and portal hypertension. Nonocclusive eccentric portal vein thrombus. This is new compared to prior contrast study from 06/02/2015. Interim studies were not performed with contrast. Enlarged spleen. Small volume of simple density ascites. Fleischner guidelines were followed.
[2023-05-12 09:25] VITALS: BP 160/66; PULSE 75; RESP 18; TEMP 37.1; O2SAT 98; BMI 36.6
--- NOTE | 2023-05-12 09:30 | ECG_ITS ---
Test Reason : DIZZY Blood Pressure : / mmHG Vent. Rate : 069 BPM Atrial Rate : 069 BPM P-R Int : 176 ms QRS Dur : 144 ms QT Int : 446 ms P-R-T Axes : -02 -29 -13 degrees QTc Int : 477 ms Normal sinus rhythm Right bundle branch block Abnormal ECG When compared with ECG of 06-JAN-2023 15:30, No significant change was found Referred By: Generic ED Physician Electronically Signed By:MARY HDEZ MD
[2023-05-12 09:49] LABS: MANUAL DIFF FLAG NO
[2023-05-12 09:52] LABS: Basophils Percent Auto 0.3 % (0-2); Eosinophils Absolute Auto 0.1 X10*3/uL (0.0-0.4); Eosinophils Percent Auto 1.8 % (0-4); Hematocrit 38.6 % (37.0-47.0); Hemoglobin 12.4 g/dl (12.0-16.0); Imm Gran Abs Auto 0.01 X10*3/uL (0.00-0.03); Imm Gran Pct Auto 0.3 % (0.0-0.4); Lymphocytes Absolute Auto 0.4 X10*3/uL (1.2-4.9); Lymphocytes Percent Auto 10.6 % (20-40); Mean Corpuscular HGB Conc 32.1 g/dl (31.0-35.0); Mean Corpuscular Hemoglobin 29.1 pg (27.0-33.0); Mean Corpuscular Volume 90.6 fL (80.0-98.0); Mean Platelet Volume 9.4 fL (9.4-12.3); Monocytes Absolute Auto 0.2 X10*3/uL (0.1-1.2); Neutrophils Absolute Auto 3.2 x10*3/uL (2.0-8.3); Platelet Count 44 X10*3/uL (160-400); Red Blood Count 4.26 X10*6/uL (4.20-5.50); Red Cell Distribution Width 15.6 % (11.0-16.0)
[2023-05-12 10:07] LABS: Alanine Aminotransferase 11 U/L (0-31); Albumin Level 3.9 g/dL (3.5-5.0); Alkaline Phosphatase 74 U/L (39-117); Anion Gap 12 (12-20); Aspartate Amino Transferase 16 U/L (5-31); Bilirubin Direct 0.7 mg/dL (0.0-0.5); Bilirubin Total 2.6 mg/dL (0.0-1.0); Blood Urea Nitrogen 14 mg/dL (9-16); Calcium 9.5 mg/dL (8.4-10.2); Carbon Dioxide 26 mmol/L (22-29); Chloride 107 mmol/L (96-108); Creatinine Clr Calc Pharmacy 57.6; Estimated Glomerular Filt Rate 52; Glucose Random 239 mg/dL (60-115); Lipase 59 U/L (8-78); Potassium 4.3 mmol/L (3.3-5.1); Sodium 141 mmol/L (135-145); Total Protein 7.3 g/dL (6.5-8.0)
[2023-05-12 10:31] LABS: Troponin-I High Sensitivity < 2.7 ng/L (<3.5-17.0)
--- NOTE | 2023-05-12 11:20 | ED.GENADULT ---
HPI - General Adult General Chief complaint: Nausea/Vomiting/Diarrhea Stated complaint: nausea/ draining abd fluids? Time Seen by Provider: 05/12/23 11:03 Source: patient Mode of arrival: ambulatory Limitations: no limitations History of Present Illness HPI narrative: This is a 77 years old female with history of cryptogenic cirrhosis presented to the emergency department complaining of nausea weakness malaise ongoing for about 2 weeks. She denies any fever chills vomiting day. Onset (ago): day(s) (1) Radiation: non-radiation Severity: mild Relieving factors: none Exacerbating factors: none Associated symptoms: denies other symptoms Related Data Home Medications Medication Instructions Recorded Confirmed citalopram 20 mg tablet 1 tab PO DAILY 06/10/22 06/10/22 furosemide 20 mg tablet 1 tab PO DAILY 06/10/22 06/10/22 gabapentin 300 mg capsule 1 cap PO BEDTIME 06/10/22 06/10/22 glipizide 10 mg tablet 1 tab PO BID 06/10/22 06/10/22 hydrochlorothiazide 25 mg tablet 1 tab PO DAILY 06/10/22 06/10/22 insulin degludec 200 unit/mL (3 72 unit subcut BID 06/10/22 06/10/22 mL) subcutaneous pen (Tresiba FlexTouch U-200 insulin) lorazepam 1 mg tablet 1 tab PO BEDTIME PRN anxiety 06/10/22 06/10/22 pravastatin 40 mg tablet 1 tab PO DAILY 06/10/22 06/10/22 propranolol 20 mg tablet 1 tab PO BID 06/10/22 06/10/22 sitagliptin phosphate 100 mg 1 tab PO DAILY 06/10/22 06/10/22 tablet (Januvia) Previous Rx's Medication Instructions Recorded omeprazole 40 mg capsule,delayed 40 mg PO BID@0630,1630 #60 caps 06/12/22 release sucralfate 1 gram tablet 1 g PO BID #60 tabs 06/12/22 nitrofurantoin 100 mg PO Q12H 5 days #10 caps 01/06/23 monohydrate/macrocrystals 100 mg capsule (Macrobid) ondansetron 4 mg disintegrating 4 mg PO Q8H PRN nausea and 01/06/23 tablet vomiting #8 tabs nitrofurantoin 100 mg PO Q12H 7 days #14 caps 01/23/23 monohydrate/macrocrystals 100 mg capsule (Macrobid) ondansetron 4 mg disintegrating 4 mg PO Q6-8H PRN nausea and 05/12/23 tablet vomiting #7 tabs Allergies Allergy/AdvReac Type Severity Reaction Status Date / Time erythromycin base Allergy Mild HIVES Verified 05/12/23 09:28 [Erythromycin Base] Iodinated Contrast Media Allergy Mild HIVES Verified 05/12/23 09:28 [IV Dye, Iodine Containing] penicillin G [Penicillin G] Allergy Mild HIVES Verified 05/12/23 09:28 penicillin V Allergy Unknown anaphylaxis Verified 05/12/23 09:28 clindamycin [Clindamycin] AdvReac Mild SEVERE Verified 05/12/23 09:28 DIARRHEA Clindamycin Palmitate HCl Allergy Unknown anaphylaxis Uncoded 01/12/23 07:58 Erythromycin Allergy Unknown Unknown Uncoded 01/12/23 07:58 Review of Systems Constitutional: Constitutional: Reports no additional constitutional complaints Eyes: Eyes: Reports no additional eye complaints Respiratory: Respiratory: Reports no additional respiratory complaints [facility] Past Medical History Medical History Esophageal and gastric varices FH: irritable bowel syndrome Hypertension Cirrhosis of liver Diabetes Social History Social History Household Members: Spouse and Children Housing: House Do you presently have visiting nurse or other home services: No Alcohol intake: never Patient Tobacco Use Status: Never used Tobacco Smoked in Last 30 Days: No Use of substances other than those prescribed or required for medical reasons: No Any prior treatment program specific to substance use: No Advance Directives: No Advance Directives Information Provided: Yes service: No Current occupational status: retired Physical Exam ED Vital Signs: Vital Signs - 24 hr 05/12/23 09:25 05/12/23 11:34 05/12/23 12:42 Temperature 98.7 F Pulse Rate 75 66 61 Respiratory Rate 18 17 16 Blood Pressure 160/66 H 168/72 H Pulse Oximetry 98 98 96 Oxygen Delivery Method Room Air Room Air 05/12/23 13:45 05/12/23 16:57 Temperature 98.0 F 98.0 F Pulse Rate 64 72 Respiratory Rate 16 19 Blood Pressure 151/67 H 162/77 H Pulse Oximetry 95 96 Oxygen Delivery Method Room Air Room Air BMI result Body Mass Index 36.6 Const General: cooperative Nutritional Appearance: well nourished Orientation/consciousness: oriented to person and patient oriented x3 Limitations: no limitations HENMT Head: Yes normal to inspection Ears: hearing grossly normal bilaterally General nose exam: Normal external nose present Face and sinus: Yes normal facial exam Mouth: Normal oral and palatal mucosa present Teeth and gingiva: dentition normal Throat: Yes posterior oropharynx normal Eyes General: appearance normal, both eyes and all related structures Chest Chest palpation & inspection: normal inspection of the chest Resp Effort & Inspection: normal respiratory effort Auscultation: clear to auscultation bilaterally Cardio Jugular venous distension: no JVD Palpation: normal PMI Rate: regular rate Rhythm: regular rhythm GI Inspection: Yes normal to inspection Palpation (GI): Soft to palpation Percussion: Yes normal to percussion Auscultation: normal bowel sounds General: Yes no CVA tenderness Back/Spine/Pelvis Back: no CVA tenderness Neuro General: oriented to person and patient oriented x3 Course Reevaluation(s) Reevaluation #1: remain stable clinically ct scan reviwed with GI Dr Bynum,no anticoagulation reccomended,Dr Bynum knows pt well and per Dr Bynum she had portal vein trombosis in the past,she has varices and she is at risk of bleeding Time: 16:51 Medications Administered Discontinued Medications Generic Name Dose Route Start Last Admin Trade Name Freq PRN Reason Stop Dose Admin Iohexol 85 ml 05/12/23 13:37 05/12/23 13:37 Iohexol 350 Mg/Ml 100 Ml Infus..Btl IV 05/12/23 13:38 85 ml ONCE ONE Administration Ondansetron HCl 4 mg 05/12/23 11:18 05/12/23 11:32 Ondansetron Hcl 4 Mg/2 Ml Vial IVPUSH 05/12/23 11:19 4 mg ONCE ONE Administration Medical Decision Making Medical Decision Making MDM Narrative: She was having nausea will get baseline blood work and reassess 1700 Patient with portal vein thrombosis which is chronic history of NEC is rated José 44,[address] Bynum customer support specialist no need for anticoagulation as she is high risk for bleeding with low platelet counts UA is positive for UTI discharge patient home Admission/Observation Consideration of admission/observation: Escalation of care including admission/observation considered Consult Healthcare Provider Management of the patient was discussed with: Biology Lecturer Dr Fletcher MON no anticoagulation Lab Data MDM Lab Attestation statement: I reviewed the patient's lab results. 05/12/23 09:45 05/12/23 09:45 Labs: Lab Results 05/12/23 05/12/23 Range/Units 09:45 16:57 WBC 4.0 L (4.8-10.8) X10*3/uL RBC 4.26 (4.20-5.50) X10*6/uL Hgb 12.4 (12.0-16.0) g/dl Hct 38.6 (37.0-47.0) % MCV 90.6 (80.0-98.0) fL MCH 29.1 (27.0-33.0) pg MCHC 32.1 (31.0-35.0) g/dl RDW 15.6 (11.0-16.0) % Plt Count 44 L (160-400) X10*3/uL MPV 9.4 (9.4-12.3) fL Immature Gran % (Auto) 0.3 (0.0-0.4) % Neut % (Auto) 81.0 H (45-73) % Lymph % (Auto) 10.6 L (20-40) % [place] % (Auto) 6.0 (2-11) % Eos % (Auto) 1.8 (0-4) % Baso % (Auto) 0.3 (0-2) % Lymph # (Auto) 0.4 L (1.2-4.9) X10*3/uL [place] # (Auto) 0.2 (0.1-1.2) X10*3/uL Eos # (Auto) 0.1 (0.0-0.4) X10*3/uL Baso # (Auto) 0.0 (0.0-0.2) X10*3/uL Abs Immat Gran (auto) 0.01 (0.00-0.03) X10*3/uL Absolute Neuts (auto) 3.2 (2.0-8.3) x10*3/uL Absolute Nucleated RBC 0.000 (0.0-0.012) X10*3/uL Nucleated RBC % (auto) 0.0 (0.0-0.2) /100WBC Sodium 141 (135-145) mmol/L Potassium 4.3 (3.3-5.1) mmol/L Chloride 107 (96-108) mmol/L Carbon Dioxide 26 (22-29) mmol/L Anion Gap 12 (12-20) BUN 14 (9-16) mg/dL Creatinine 1.04 (0.5-1.4) mg/dL Estim Creat Clear Calc 57.6 Estimated GFR 52 Random Glucose 239 H (60-115) mg/dL Calcium 9.5 (8.4-10.2) mg/dL Total Bilirubin 2.6 H (0.0-1.0) mg/dL Direct Bilirubin 0.7 H (0.0-0.5) mg/dL AST 16 (5-31) U/L ALT 11 (0-31) U/L Alkaline Phosphatase 74 (39-117) U/L Troponin I High Sens < 2.7 (<3.5-17.0) ng/L Total Protein 7.3 (6.5-8.0) g/dL Albumin 3.9 (3.5-5.0) g/dL Lipase 59 (8-78) U/L Urine Color Yellow Urine Appearance Hazy Urine pH 5.0 (5.0-9.0) Ur Specific [place] <= 1.005 (1.005-1.025) Urine Protein 100 (2+) H (Neg-Trace) mg/dL Urine Glucose (UA) Negative (Negative) mg/dL Urine Ketones Negative (Negative) mg/dL Urine Blood Moderate (2+) H (Negative) Urine Nitrite Negative (Negative) Ur Leukocyte Esterase Negative (Negative) Urine RBC 6-10 H (0-2) /HPF Urine WBC >50 H (0-5) /HPF Ur Squamous Epith Cells >20 (0-2) /HPF Urine Bacteria 4+ (None Seen) Hyaline Casts 0-2 (0-2) /LPF Independent Interpretation I performed an independent interpretation of an: EKG and CT Scan Interpretation: Normal sinus rhythm right bundle-branch block heart rate 69 beats per minute no acute ST-T no acute ischemic Radiology Impression Discussion of test interpretation with radiology: I have reviewed the radiologist's reading. Radiologist Impression: RDER #: [id number] CT/CT abdomen pelvis w IV con IMPRESSION: Cirrhosis and portal hypertension. Nonocclusive eccentric portal vein thrombus. This is new compared to prior contrast study from 06/02/2015. Interim studies were not performed with contrast. Enlarged spleen. Small volume of simple density ascites. Fleischner guidelines were followed. External Record Review External record reviewed: Inpatient record Discharge Plan Discharge Clinical Impression: Cirrhosis of liver, Acute UTI Patient Disposition: Home, Self-Care Instructions: Cirrhosis (ED) Additional Instructions: Follow-up with your customer support specialist on Sunday return if you are worse vomiting fever severe abdominal any concern Prescriptions: New ondansetron 4 mg tablet,disintegrating 4 mg PO Q6-8H PRN (Reason: nausea and vomiting) Qty: 7 0RF No Action pravastatin 40 mg tablet 1 tab PO DAILY glipizide 10 mg tablet 1 tab PO BID citalopram 20 mg tablet 1 tab PO DAILY gabapentin 300 mg capsule 1 cap PO BEDTIME hydrochlorothiazide 25 mg tablet 1 tab PO DAILY furosemide 20 mg tablet 1 tab PO DAILY insulin degludec [Tresiba FlexTouch U-200] 200 unit/mL (3 mL) insulin pen 72 unit subcut BID propranolol 20 mg tablet 1 tab PO BID lorazepam 1 mg tablet 1 tab PO BEDTIME PRN (Reason: anxiety) Januvia 100 mg tablet 1 tab PO DAILY sucralfate 1 gram Tablet 1 g PO BID Qty: 60 0RF omeprazole 40 mg Capsule,Delayed Release(Dr/Ec) 40 mg PO BID@0630,1630 Qty: 60 0RF nitrofurantoin monohyd/m-cryst [Macrobid] 100 mg capsule 100 mg PO Q12H 7 Days Qty: 14 0RF Rx Instructions: must administer with a meal/food nitrofurantoin monohyd/m-cryst [Macrobid] 100 mg capsule 100 mg PO Q12H 5 Days Qty: 10 0RF Rx Instructions: must administer with a meal/food ondansetron 4 mg tablet,disintegrating 4 mg PO Q8H PRN (Reason: nausea and vomiting) Qty: 8 0RF Interventions: ED Discharge Assessment Last Done: 05/12/23 17:59 Discharge Date/Time: 05/12/23 17:59
[2023-05-12] MEDS: ondansetron HCL 4 MG/2 ML VIAL IVPUSH (11:32)
[2023-05-12 11:34] VITALS: PULSE 66; RESP 17; O2SAT 98
[2023-05-12 12:42] VITALS: BP 168/72; PULSE 61; RESP 16; O2SAT 96
[2023-05-12] MEDS: iohexoL 350 MG/ML 100 ML INFUS..BTL 85 ML IV (13:37)
[2023-05-12 13:45] VITALS: BP 151/67; PULSE 64; RESP 16; TEMP 36.7; O2SAT 95
--- NOTE | 2023-05-12 15:24 | PC.NURSE ---
this nurse obtained report from vlad and took over patient care at 3pm, patient a&ox3, c/o continued nausea but states that her nausea is a little better than prior, vitals continue to be stable, pt awaiting radiology results, family at bedside, call brothers within reach, will continue to monitor
[2023-05-12 16:57] VITALS: BP 162/77; PULSE 72; RESP 19; TEMP 36.7; O2SAT 96
[2023-05-12 17:08] LABS: Appearance Urine Hazy; Color Urine Yellow; Glucose Urine UA Negative (Negative); Leukocyte Esterase Urine Negative (Negative); Nitrite Urine Negative (Negative); Specific Gravity - Urine <= 1.005 (1.005-1.025); UMIC TRIGGER UACC YES; Urine Blood Moderate (2+) (Negative); Urine Ketones Negative (Negative); Urine Protein 100 (2+) mg/dL (Neg-Trace)
--- NOTE | 2023-05-12 17:32 | PC.NURSE ---
pt waiting on radiology to print disc they will then discharge
[2023-05-12 17:35] LABS: Bacteria Urine 4+ (None Seen); Hyaline Casts Urine 0-2 /LPF (0-2); Squamous Epithelial Cell Urine >20 /HPF (0-2); UACC Culture Trigger YES; WBC Urine >50 /HPF (0-5)
== END 2023-05-12 17:59 | disposition home or self-care (01) ==
PROVIDERS: Emergency Provider Emergency Medicine; PCP Internal Medicine
DX: K74.60 Unspecified cirrhosis of liver (principal); N39.0 Urinary tract infection, site not specified; R11.2 Nausea with vomiting, unspecified; E11.9 Type 2 diabetes mellitus without complications; I10 Essential (primary) hypertension; Z79.4 Long term (current) use of insulin; Z79.899 Other long term (current) drug therapy
CPT/HCPCS: 36415; 74177; 80048; 80076; 81001; 83690; 84484; 85025; 87086; 87147; 93005; 96374; 99284; J2405; Q9967

== ENCOUNTER → 2023-05-12 09:30 | Outpatient (BNV) | payer MEDICARE, OTHER, SELFPAY | PROVIDERS: Emergency Provider Emergency Medicine; PCP Internal Medicine; Visit Provider Internal Medicine Cardiovascular Disease | DX: R94.31 Abnormal electrocardiogram [ECG] [EKG] (principal); I45.10 Unspecified right bundle-branch block | CPT/HCPCS: 93010 ==

== ENCOUNTER 2023-05-16 02:52 | Emergency (ER) | payer MEDICARE, OTHER, SELFPAY ==
--- NOTE | ~2023-05-16 | XR_ITS ---
EXAMINATION: XR CHEST CLINICAL INFORMATION: Weakness. COMPARISON: 01/06/2023. TECHNIQUE: Frontal view of the chest was obtained. FINDINGS: The patient is rotated and the lung volumes are low. The cardiomediastinal silhouette is stable. There is no focal lung consolidation or pleural effusion. The bony structures and soft tissues are unremarkable. XR/XR chest 1V IMPRESSION: Rotation and low lung volume slightly limits evaluation. No evidence for active cardiopulmonary disease.
[2023-05-16 02:58] VITALS: BP 154/63; PULSE 103; RESP 18; TEMP 37.2; O2SAT 95; BMI 32.7
--- NOTE | 2023-05-16 03:41 | ED_ITS ---
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 Bynum declined anticoagulation due to bleeding risks who was exposed to her this who tested positive for COVID. The patient herself started Sunday with fatigue, body aches, dry cough and persistent nausea. She is vaccinated x 4. Her biggest complaint is nausea at this time. She would consider Paxlovid. Her home test Sunday was inconclusive. MD complaint: nausea Onset (ago): day(s) (3) Location: abdomen Radiation: non-radiation Severity: moderate Relieving factors: none Exacerbating factors: eating Associated symptoms: cough, loss of appetite, malaise and weakness Treatments prior to arrival: none Related Data Home Medications Medication Instructions Recorded Confirmed citalopram 20 mg tablet 1 tab PO DAILY 06/10/22 06/10/22 furosemide 20 mg tablet 1 tab PO DAILY 06/10/22 06/10/22 gabapentin 300 mg capsule 1 cap PO BEDTIME 06/10/22 06/10/22 glipizide 10 mg tablet 1 tab PO BID 06/10/22 06/10/22 hydrochlorothiazide 25 mg tablet 1 tab PO DAILY 06/10/22 06/10/22 insulin degludec 200 unit/mL (3 72 unit subcut BID 06/10/22 06/10/22 mL) subcutaneous pen (Tresiba FlexTouch U-200 insulin) lorazepam 1 mg tablet 1 tab PO BEDTIME PRN anxiety 06/10/22 06/10/22 pravastatin 40 mg tablet 1 tab PO DAILY 06/10/22 06/10/22 propranolol 20 mg tablet 1 tab PO BID 06/10/22 06/10/22 sitagliptin phosphate 100 mg 1 tab PO DAILY 06/10/22 06/10/22 tablet (Januvia) Previous Rx's Medication Instructions Recorded omeprazole 40 mg capsule,delayed 40 mg PO BID@0630,1630 #60 caps 01/02/23 release sucralfate 1 gram tablet 1 g PO BID #60 tabs 06/12/22 nitrofurantoin 100 mg PO Q12H 5 days #10 caps 01/06/23 monohydrate/macrocrystals 100 mg capsule (Macrobid) ondansetron 4 mg disintegrating 4 mg PO Q8H PRN nausea and 01/06/23 tablet vomiting #8 tabs nitrofurantoin 100 mg PO Q12H 7 days #14 caps 01/23/23 monohydrate/macrocrystals 100 mg capsule (Macrobid) ondansetron 4 mg disintegrating 4 mg PO Q6-8H PRN nausea and 05/12/23 tablet vomiting #7 tabs nirmatrelvir 300 mg (150 mg See Rx Instructions PO .COMPLEX 05/16/23 x2)-ritonavir 100 mg tablet,dose #30 ea pack (Paxlovid) ondansetron 4 mg disintegrating 4 mg PO Q8H PRN nausea and 05/16/23 tablet vomiting #20 tabs Allergies Allergy/AdvReac Type Severity Reaction Status Date / Time erythromycin base Allergy Mild HIVES Verified 05/12/23 09:28 [Erythromycin Base] Iodinated Contrast Media Allergy Mild HIVES Verified 05/12/23 09:28 [IV Dye, Iodine Containing] penicillin G [Penicillin G] Allergy Mild HIVES Verified 05/12/23 09:28 penicillin V Allergy Unknown anaphylaxis Verified 05/12/23 09:28 clindamycin [Clindamycin] AdvReac Mild SEVERE Verified 05/12/23 09:28 DIARRHEA Clindamycin Palmitate HCl Allergy Unknown anaphylaxis Uncoded 01/12/23 07:58 Erythromycin Allergy Unknown Unknown Uncoded 01/12/23 07:58 Review of Systems 2 Review of Systems: Constitutional : No Fever, pos Chills, pos Fatigue ENT/Mouth : No sore throat, No Rhinorrhea Eyes: No Eye Pain, No Swelling, No Redness Cardiovascular : No Chest Pain, No SOB, No Dyspnea on Exertion Respiratory : No Cough, No Sputum Gastrointestinal : pos Nausea, No Vomiting, No Diarrhea, No abdominal Pain Genitourinary : No Dysuria, No Urinary Frequency, No Hematuria, Musculoskeletal : No joint pain, pos Myalgias, No Joint Swelling Skin : No Skin Lesions, No rash Neuro : pos Weakness, No Numbness, No Dizziness, positive Headache Psych : No Anxiety/Panic, No Depression Heme/Lymph: No Bruising, No Bleeding,No Lymphadenopathy Endocrine : No Polyuria, No Polydipsia All other systems reviewed and are negative [facility] Past Medical History Medical History Esophageal and gastric varices FH: irritable bowel syndrome Hypertension Cirrhosis of liver Diabetes Social History Social History Household Members: Spouse and Children Housing: House Do you presently have visiting nurse or other home services: No Alcohol intake: never Patient Tobacco Use Status: Never used Tobacco Smoked in Last 30 Days: No Use of substances other than those prescribed or required for medical reasons: No Advance Directives: No Advance Directives Information Provided: Yes service: No Current occupational status: retired Physical Exam ED Vital Signs: Vital Signs - 24 hr 05/16/23 02:58 05/16/23 04:49 Temperature 99 F Pulse Rate 103 H 75 Respiratory Rate 18 18 Blood Pressure 154/63 H 113/78 Pulse Oximetry 95 93 Oxygen Delivery Method Room Air Room Air BMI result Body Mass Index 32.7 Appearance: Alert. Oriented X3. No acute distress. Eyes: Pupils equal, round and reactive to light. ENT: Pharynx normal. Neck: Normal inspection. Neck supple. CVS: Normal heart rate and rhythm. Pulses normal. Respiratory: No respiratory distress. Breath sounds normal. Abdomen: Soft and nontender. Mild ascites Skin: Skin warm and dry. Normal skin color. Normal skin turgor. Extremities: No lower extremity edema. No calf ttp Neuro: Oriented X 3. No motor deficit. No sensory deficit. 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 Medications Administered Discontinued Medications Generic Name Dose Route Start Last Admin Trade Name Freq PRN Reason Stop Dose Admin Sodium Chloride 500 mls @ 500 mls/hr 05/16/23 03:30 05/16/23 05:05 Ns IV 05/16/23 04:29 Infused .Q1H REKHA Infusion Magnesium Sulfate 2 gm in 50 mls @ 25 mls/hr 05/16/23 04:24 05/16/23 04:55 Magnesium Sulfate/H2o IV 05/16/23 06:23 25 mls/hr ONCE ONE Administration Ondansetron HCl 4 mg 05/16/23 03:22 05/16/23 04:04 Ondansetron Hcl 4 Mg/2 Ml Vial IVPUSH 05/16/23 03:23 4 mg ONCE ONE Administration Oxycodone HCl 5 mg 05/16/23 05:01 05/16/23 05:07 Oxycodone Hcl Immed Release 5 Mg Tablet PO 05/16/23 05:02 5 mg ONCE ONE Administration Medical Decision Making Medical Decision Making MDM Narrative: 78 yo female with PMH of DM, thromboctyopenia, cryptogenic cirrhosis with hx of varices, ascites s/p 2 or 3 paracentesis, and GI bleed here with viral symptoms and nausea x 3 days after exposure to COVID. She vaccinated x 4. She will need labs, gentle fluids and zofran. Suspect COVID given history and timeline. She denies CP/SOB. Differential Diagnosis Differential Diagnoses: The differential diagnosis associated with the presentation includes viral syndrome, dehydration, COVID-19 Admission/Observation Consideration of admission/observation: Escalation of care including admission/observation considered feels better eating and drinking no hypoxia Lab Data [facility] Lab Attestation statement: I reviewed the patient's lab results. H/H and plts at baseline mag slightly low slight bump in bili but no RUQ and recent PV thrombus not a candidate for AC therapy per GI see previous visit 05/16/23 03:50 05/16/23 03:50 Labs: Lab Results 05/16/23 05/16/23 Range/Units 03:06 03:50 WBC 4.6 L (4.8-10.8) X10*3/uL RBC 3.77 L (4.20-5.50) X10*6/uL Hgb 11.1 L (12.0-16.0) g/dl Hct 33.9 L (37.0-47.0) % MCV 89.9 (80.0-98.0) fL MCH 29.4 (27.0-33.0) pg MCHC 32.7 (31.0-35.0) g/dl RDW 15.3 (11.0-16.0) % Plt Count 38 L (160-400) X10*3/uL MPV 10.6 (9.4-12.3) fL Immature Gran % (Auto) 0.4 (0.0-0.4) % Neut % (Auto) 86.3 H (45-73) % Lymph % (Auto) 5.7 L (20-40) % [place] % (Auto) 7.0 (2-11) % Eos % (Auto) 0.4 (0-4) % Baso % (Auto) 0.2 (0-2) % Lymph # (Auto) 0.3 L (1.2-4.9) X10*3/uL [place] # (Auto) 0.3 (0.1-1.2) X10*3/uL Eos # (Auto) 0.0 (0.0-0.4) X10*3/uL Baso # (Auto) 0.0 (0.0-0.2) X10*3/uL Abs Immat Gran (auto) 0.02 (0.00-0.03) X10*3/uL Absolute Neuts (auto) 4.0 (2.0-8.3) x10*3/uL Absolute Nucleated RBC 0.000 (0.0-0.012) X10*3/uL Nucleated RBC % (auto) 0.0 (0.0-0.2) /100WBC PT 16.8 H (11.1-13.3) SEC INR 1.4 H (0.9-1.1) Sodium 138 (135-145) mmol/L Potassium 4.0 (3.3-5.1) mmol/L Chloride 104 (96-108) mmol/L Carbon Dioxide 24 (22-29) mmol/L Anion Gap 14 (12-20) BUN 10 (9-16) mg/dL Creatinine 0.95 (0.5-1.4) mg/dL Estim Creat Clear Calc 59.0 Estimated GFR 57 Random Glucose 203 H (60-115) mg/dL Calcium 9.0 (8.4-10.2) mg/dL Magnesium 1.5 L (1.6-2.6) mg/dL Total Bilirubin 3.5 H (0.0-1.0) mg/dL Direct Bilirubin 0.9 H (0.0-0.5) mg/dL AST 17 (5-31) U/L ALT 9 (0-31) U/L Alkaline Phosphatase 67 (39-117) U/L Ammonia 34 (13-55) umol/L Total Protein 6.6 (6.5-8.0) g/dL Albumin 3.6 (3.5-5.0) g/dL Lipase 43 (8-78) U/L Influenza Type A (PCR) NEGATIVE (Negative) Influenza Type B (PCR) NEGATIVE (Negative) RSV RNA Qual (PCR) NEGATIVE (Negative) SARS-CoV-2 RNA (RT-PCR) POSITIVE A (Negative) Independent Interpretation I performed an independent interpretation of an: Plain X-Ray (no pneumonia) Radiology Impression Discussion of test interpretation with radiology: I have reviewed the radiologist's reading. Independent Historian Clinical information obtained from an independent historian. History obtained from or confirmed by: Spouse External Record Review External record reviewed: Inpatient record Prescription Management I considered prescription management with: Antiviral and Other Discharge Plan Discharge Clinical Impression: COVID-19, Nausea, Hypomagnesemia Patient Disposition: Home, Self-Care Instructions: Acute Nausea and Vomiting (ED), Hypomagnesemia (ED), COVID-19 (Coronavirus Disease 2019) (ED) Additional Instructions: return for worsening symptoms - chest pain, inability to eat or drink, difficulty breathing, or any other concerns. stay hydrated. follow up with your doctor - monitor your blood counts and liver tests in 2 days as COVID can have an effect on both. Prescriptions: New Paxlovid 300 mg (150 mg x 2)-100 mg tablets,dose pack See Rx Instructions .ROUTE .COMPLEX Qty: 30 0RF Rx Instructions: take TWO 150 mg tablets of nirmatrelvir with ONE 100 mg tablet of ritonavir twice daily for 5 days ondansetron 4 mg tablet,disintegrating 4 mg PO Q8H PRN (Reason: nausea and vomiting) Qty: 20 0RF No Action pravastatin 40 mg tablet 1 tab PO DAILY glipizide 10 mg tablet 1 tab PO BID citalopram 20 mg tablet 1 tab PO DAILY gabapentin 300 mg capsule 1 cap PO BEDTIME hydrochlorothiazide 25 mg tablet 1 tab PO DAILY furosemide 20 mg tablet 1 tab PO DAILY insulin degludec [Tresiba FlexTouch U-200] 200 unit/mL (3 mL) insulin pen 72 unit subcut BID propranolol 20 mg tablet 1 tab PO BID lorazepam 1 mg tablet 1 tab PO BEDTIME PRN (Reason: anxiety) Januvia 100 mg tablet 1 tab PO DAILY sucralfate 1 gram Tablet 1 g PO BID Qty: 60 0RF omeprazole 40 mg Capsule,Delayed Release(Dr/Ec) 40 mg PO BID@0630,1630 Qty: 60 0RF nitrofurantoin monohyd/m-cryst [Macrobid] 100 mg capsule 100 mg PO Q12H 7 Days Qty: 14 0RF Rx Instructions: must administer with a meal/food ondansetron 4 mg tablet,disintegrating 4 mg PO Q6-8H PRN (Reason: nausea and vomiting) Qty: 7 0RF nitrofurantoin monohyd/m-cryst [Macrobid] 100 mg capsule 100 mg PO Q12H 5 Days Qty: 10 0RF Rx Instructions: must administer with a meal/food ondansetron 4 mg tablet,disintegrating 4 mg PO Q8H PRN (Reason: nausea and vomiting) Qty: 8 0RF
[2023-05-16 03:55] LABS: Influenza A PCR NEGATIVE (Negative); Influenza B PCR NEGATIVE (Negative); Resp Syncy Virus RNA Qual PCR NEGATIVE (Negative); SARS COV2 PCR INHOUSE POSITIVE (Negative)
[2023-05-16 03:57] LABS: MANUAL DIFF FLAG NO
[2023-05-16] MEDS: ondansetron HCL 4 MG/2 ML VIAL IVPUSH (04:04)
[2023-05-16] MEDS: 0.9 % Sodium Chloride 500 ML IV (04:04)
[2023-05-16 04:11] LABS: Ammonia 34 umol/L (13-55)
[2023-05-16 04:15] LABS: Basophils Percent Auto 0.2 % (0-2); Eosinophils Percent Auto 0.4 % (0-4); Hematocrit 33.9 % (37.0-47.0); Hemoglobin 11.1 g/dl (12.0-16.0); Imm Gran Abs Auto 0.02 X10*3/uL (0.00-0.03); Imm Gran Pct Auto 0.4 % (0.0-0.4); Lymphocytes Absolute Auto 0.3 X10*3/uL (1.2-4.9); Lymphocytes Percent Auto 5.7 % (20-40); Mean Corpuscular HGB Conc 32.7 g/dl (31.0-35.0); Mean Corpuscular Hemoglobin 29.4 pg (27.0-33.0); Mean Corpuscular Volume 89.9 fL (80.0-98.0); Mean Platelet Volume 10.6 fL (9.4-12.3); Monocytes Absolute Auto 0.3 X10*3/uL (0.1-1.2); Neutrophils Percent Auto 86.3 % (45-73); Platelet Count 38 X10*3/uL (160-400); Red Blood Count 3.77 X10*6/uL (4.20-5.50); Red Cell Distribution Width 15.3 % (11.0-16.0); White Blood Count 4.6 X10*3/uL (4.8-10.8)
[2023-05-16 04:17] LABS: INTERNATIONAL NORM RATIO 1.4 (0.9-1.1); Lipase 43 U/L (8-78); Prothrombin Time 16.8 SEC (11.1-13.3)
[2023-05-16 04:20] LABS: Alanine Aminotransferase 9 U/L (0-31); Albumin Level 3.6 g/dL (3.5-5.0); Alkaline Phosphatase 67 U/L (39-117); Anion Gap 14 (12-20); Aspartate Amino Transferase 17 U/L (5-31); Bilirubin Direct 0.9 mg/dL (0.0-0.5); Bilirubin Total 3.5 mg/dL (0.0-1.0); Blood Urea Nitrogen 10 mg/dL (9-16); Carbon Dioxide 24 mmol/L (22-29); Chloride 104 mmol/L (96-108); Estimated Glomerular Filt Rate 57; Glucose Random 203 mg/dL (60-115); Magnesium 1.5 mg/dL (1.6-2.6); Sodium 138 mmol/L (135-145); Total Protein 6.6 g/dL (6.5-8.0)
[2023-05-16 04:49] VITALS: BP 113/78; PULSE 75; RESP 18; O2SAT 93
[2023-05-16] MEDS: Magnesium Sulfate/H2O 2 GM/50 ML PIGGYBACK IV (04:55)
[2023-05-16] MEDS: oxyCODONE HCl Immed Release 5 MG TABLET PO (05:07)
--- NOTE | 2023-05-16 05:37 | PC.NURSE ---
Took over care from Christy, receiving Mag at this time. no sign of distress.
--- NOTE | 2023-05-16 05:48 | PC.NURSE ---
Placed bedside commode next to bed, isolated precaution in place.
[2023-05-16 06:52] VITALS: BP 134/62; PULSE 85; RESP 13; TEMP 37; O2SAT 93
--- NOTE | 2023-05-16 07:08 | PC.NURSE ---
Called to picking belt operator, no answer, reported off to MAGGY Mayorga
== END 2023-05-16 08:02 | disposition home or self-care (01) ==
PROVIDERS: Emergency Provider Emergency Medicine; PCP Internal Medicine
DX: U07.1 COVID-19 (principal); R11.0 Nausea; E11.9 Type 2 diabetes mellitus without complications; I10 Essential (primary) hypertension; K74.60 Unspecified cirrhosis of liver; Z79.4 Long term (current) use of insulin; Z79.899 Other long term (current) drug therapy
CPT/HCPCS: 0241U; 36415; 71045; 80048; 80076; 82140; 83690; 83735; 85025; 85610; 96361; 96374; 96375; 99284; J2405; J3475

== ENCOUNTER 2024-07-30 09:48 | Emergency (ER) | payer MEDICARE, OTHER, SELFPAY ==
--- NOTE | ~2024-07-30 | XR_ITS ---
EXAMINATION: XR LUMBOSACRAL SPINE CLINICAL INFORMATION: low back pain s/p fall COMPARISON: None available. TECHNIQUE: Three views of the lumbosacral spine. FINDINGS: Limited lateral view due to patient's body habitus. Multilevel marginal osteophyte formation and syndesmophyte formation in the lower thoracic and through the lumbar spine. No gross acute cortical disruption or gross malalignment. Limited evaluation of the L5-S1. Vascular clips right upper quadrant likely related to prior cholecystectomy. Vascular calcifications in the left upper hemiabdomen probably splenic artery. Degenerative changes in the coxofemoral joints. Ossified plaques in the abdominal aorta. XR/XR lumbar spine 2-3V IMPRESSION: Limited evaluation demonstrated multilevel thoracolumbar spondylosis. Electronically signed by: Estevan Be MD 07/30/2024 11:49 AM [facility] TO[facility]
--- NOTE | ~2024-07-30 | XR_ITS ---
EXAMINATION: XR SACRUM AND COCCYX CLINICAL INFORMATION: low back pain COMPARISON: None available. TECHNIQUE: 2 views of the sacrum and 2 views of the coccyx were obtained. FINDINGS: Limited lateral projection due to patient's body habitus and unable to visualized the coccyx. No gross cortical disruption in the AP projection. Sclerosis and the sacroiliac joints. XR/XR sacrum coccyx min 2V IMPRESSION: No gross acute fracture. Limited lateral view. Electronically signed by: Estevan Be MD 07/30/2024 11:48 AM [facility]
--- NOTE | ~2024-07-30 | XR_ITS ---
EXAMINATION: XR PELVIS CLINICAL INFORMATION: fall , pain. COMPARISON: None available. TECHNIQUE: AP view of the pelvis. FINDINGS: No fracture, dislocation, or suspicious bone lesion. Normal bone mineralization. Normal hip joint alignment. Joint spaces are preserved. Minimal osteoarthritic changes of the hip joints. Mild to moderate degenerative changes lower lumbar spine and bilateral SI joints. Soft tissues appear normal. XR/XR pelvis 1-2V IMPRESSION: 1. No acute findings of the pelvis. Electronically signed by: Valerio Sanchez MD 07/30/2024 11:47 AM [facility]
[2024-07-30 10:12] VITALS: BP 141/63; BP 142/68; PULSE 69; PULSE 70; RESP 16; TEMP 36.6; O2SAT 95; O2SAT 99; BMI 29.3
--- NOTE | 2024-07-30 10:20 | ED_ITS ---
HPI - Fall General Chief Complaint: Fall Stated Complaint: FALL TODAY,REFUSED COLLAR,-THIN,-HS,-LOC PER EMS Time Seen by Provider: 07/30/24 10:09 Source: patient, family, EMS, RN notes reviewed and old records reviewed Mode of arrival: EMS History of Present Illness ED Provider: Kristie Calderon PA-C HPI Narrative: 79-year-old female with a past medical history of HTN, cirrhosis, diabetes, elevated ammonia, presenting to ED via EMS complaining of low back pain s/p mechanical trip and fall at 04:00 this morning onto buttock. Denies head trauma or LOC. Has been minimally ambulatory since incident secondary to pain. Was able to shuffle with walker. At baseline ambulates without any assistive devices. Has been reports patient with chronic elevated ammonia currently on medication however does report progressive confusion over the past month. Denies radiation down lower extremities, numbness, tingling, weakness, incontinence/retention, abdominal pain, headache. Denies symptoms prior to fall. Related Data Home Medications ?Medication ?Instructions ?Recorded ?Confirmed citalopram 20 mg tablet 1 tab PO DAILY 06/10/22 06/10/22 furosemide 20 mg tablet 1 tab PO DAILY 06/10/22 06/10/22 gabapentin 300 mg capsule 1 cap PO BEDTIME 06/10/22 06/10/22 glipizide 10 mg tablet 1 tab PO BID 06/10/22 06/10/22 hydrochlorothiazide 25 mg tablet 1 tab PO DAILY 06/10/22 06/10/22 insulin degludec 200 unit/mL (3 72 unit subcut BID 06/10/22 06/10/22 mL) subcutaneous pen (Tresiba FlexTouch U-200 insulin) lorazepam 1 mg tablet 1 tab PO BEDTIME PRN anxiety 06/10/22 06/10/22 pravastatin 40 mg tablet 1 tab PO DAILY 06/10/22 06/10/22 propranolol 20 mg tablet 1 tab PO BID 06/10/22 06/10/22 sitagliptin phosphate 100 mg 1 tab PO DAILY 06/10/22 06/10/22 tablet (Januvia) Previous Rx's ?Medication ?Instructions ?Recorded omeprazole 40 mg capsule,delayed 40 mg PO BID@0630,1630 #60 caps 06/12/22 release sucralfate 1 gram tablet 1 g PO BID #60 tabs 06/12/22 nitrofurantoin 100 mg PO Q12H 5 days #10 caps 01/06/23 monohydrate/macrocrystals 100 mg capsule (Macrobid) ondansetron 4 mg disintegrating 4 mg PO Q8H PRN nausea and 01/06/23 tablet vomiting #8 tabs nitrofurantoin 100 mg PO Q12H 7 days #14 caps 01/23/23 monohydrate/macrocrystals 100 mg capsule (Macrobid) ondansetron 4 mg disintegrating 4 mg PO Q6-8H PRN nausea and 05/12/23 tablet vomiting #7 tabs nirmatrelvir 300 mg (150 mg See Rx Instructions PO .COMPLEX 05/16/23 x2)-ritonavir 100 mg tablet,dose #30 ea pack (Paxlovid) ondansetron 4 mg disintegrating 4 mg PO Q8H PRN nausea and 05/16/23 tablet vomiting #20 tabs Allergies Allergy/AdvReac Type Severity Reaction Status Date / Time erythromycin base Allergy Mild HIVES Verified 07/30/24 10:16 [Erythromycin Base] Iodinated Contrast Media Allergy Mild HIVES Verified 07/30/24 10:16 [IV Dye, Iodine Containing] penicillin G [Penicillin G] Allergy Mild HIVES Verified 07/30/24 10:16 penicillin V Allergy Unknown anaphylaxis Verified 07/30/24 10:16 clindamycin [Clindamycin] AdvReac Mild SEVERE Verified 07/30/24 10:16 DIARRHEA Clindamycin Palmitate HCl Allergy Unknown anaphylaxis Uncoded 01/12/23 07:58 Erythromycin Allergy Unknown Unknown Uncoded 01/12/23 07:58 Review of Systems 2 Review of Systems: Yes all other systems are reviewed and are negative Constitutional: Constitutional: Reports as per HPI Neurologic: Denies Sensory deficit (Neuro) [facility] Past Medical History Attestation statement: The following information was validated with the patient. Source: old records reviewed Medical History Esophageal and gastric varices FH: irritable bowel syndrome Hypertension Cirrhosis of liver Diabetes Social History Social History Household Members: Spouse and Children Housing: House Do you presently have visiting nurse or other home services: No Alcohol intake: never Patient Tobacco Use Status: Never used Tobacco Advance Directives: No Advance Directives Information Provided: Yes Do you have a plan to hurt others: No Plan service: No Current occupational status: retired Physical Exam 2 Vital Signs: Vital Signs: Last Vital Signs Temp 97.9 F 07/30/24 10:12 Pulse 69 07/30/24 10:12 Resp 16 07/30/24 10:12 BP 141/63 H 07/30/24 10:12 Pulse Ox 95 07/30/24 10:12 O2 Del Method Room Air 07/30/24 10:12 BMI result Body Mass Index 29.3 Const: General: cooperative, healthy appearing and no acute distress O rientation/consciousness: patient oriented x3 Limitations: no limitations HEENT: Head: Yes normal to inspection and Yes atraumatic Ears: hearing grossly normal bilaterally General nose exam: Normal external nose present Face and sinus: Yes normal facial exam Eyes: General: appearance normal, both eyes and all related structures EOM: EOMs intact bilaterally Neck: Neck: Yes normal visual inspection and Yes no meningeal signs Resp: Effort & Inspection: normal respiratory effort and no respiratory distress Auscultation: clear to auscultation bilaterally Cardio: Rate: regular rate Heart sounds: S1 normal heart sound present and S2 normal heart sound present GI: Inspection: Yes normal to inspection Palpation (GI): Soft to palpation, nontender, no guarding and not rigid : General: Yes no CVA tenderness Back/Spine/Pelvis: Other: No midline cervical/thoracic spinous tenderness/step-off or deformity. + midline and paraspinal lumbar spinous tenderness. Back: no CVA tenderness Skin: Rashes: no rashes Wounds: no wounds Neuro: Other: Strength intact throughout. No saddle anesthesia. Sensation intact to light touch. Neurovascular intact distally General: patient oriented x3, tone normal, moves all extremities and no meningeal signs Cranial nerves: Yes CN's II-XII intact bilaterally Motor exam (neuro): 5/5 motor strength present throughout Sensory Exam: No Sensory deficit (Neuro) Extrem: Other: Pelvis stable. Hips nontender. FROM hips intact. Neurovascularly intact distally General: Yes normal to inspection Course Course Course Narrative: 1153--XR lumbar spine 2-3V IMPRESSION: Limited evaluation demonstrated multilevel thoracolumbar spondylosis. XR pelvis 1-2V IMPRESSION: 1. No acute findings of the pelvis. XR sacrum coccyx min 2V IMPRESSION: No gross acute fracture. Limited lateral view. -labs reassuring. H&H at patient's baseline. Total bilirubin chronically elevated. Ammonia WNL. > physician observation initiated at 11:55 AM as patient needs more time to be evaluated by PT/case management. -1347--UA with small blood (chronic), positive nitrates, & RBCs / bacteria (chronic) > will hold on initiating antibiotics until culture results > physical therapy recommending short-term rehab. Case management working on placement -1630--ED care transferred to [facility] pending case management placement Medications Administered Discontinued Medications Generic Name Dose Route Start Last Admin Trade Name Freq PRN Reason Stop Dose Admin Cyclobenzaprine HCl 10 mg 07/30/24 10:30 07/30/24 10:52 Cyclobenzaprine Hcl 10 Mg Tablet PO 07/30/24 10:31 10 mg ONCE ONE Administration Oxycodone HCl 5 mg 07/30/24 13:06 07/30/24 13:34 Oxycodone Hcl Immed Release 5 Mg Tablet PO 07/30/24 13:07 5 mg ONCE ONE Administration Medical Decision Making Medical Decision Making [facility] Narrative: 79-year-old female with a past medical history of HTN, cirrhosis, diabetes, elevated ammonia, presenting to ED via EMS complaining of low back pain s/p mechanical trip and fall at 04:00 this morning onto buttock. On exam vital signs stable, NAD, nontoxic appearing physical exam as noted above with midline lumbar/paraspinal tenderness. No focal deficits or red flag symptoms. Has been reports progressive confusion over the past month with known chronic elevated ammonia due to liver cirrhosis. Concern for fracture vs strain vs MSK pain/spasming. Low suspicion for acute cauda equina/cord compression. Rule out elevated ammonia/encephalopathy and metabolic abnormalities. Plan: Labs, x-rays, UA, pain control, re-evaluate Please refer to course for remaining clinical decision making, interpretation of labs/imaging results, and discussions with consultants and/or family members. Differential Diagnosis Differential Diagnoses: The differential diagnosis associated with the presentation includes As above Admission/Observation Consideration of admission/observation: Escalation of care including admission/observation considered Lab Data [facility] Lab Attestation statement: I reviewed the patient's lab results. 07/30/24 10:42 07/30/24 10:42 Labs: Lab Results 07/30/24 07/30/24 07/30/24 Range/Units 10:42 10:59 12:29 WBC 4.2 L (4.8-10.8) X10*3/uL RBC 3.62 L (4.20-5.50) X10*6/uL Hgb 10.6 L (12.0-16.0) g/dl Hct 33.0 L (37.0-47.0) % MCV 91.2 (80.0-98.0) fL MCH 29.3 (27.0-33.0) pg MCHC 32.1 (31.0-35.0) g/dl RDW 16.1 H (11.0-16.0) % Plt Count 34 L (160-400) X10*3/uL MPV 9.0 L (9.4-12.3) fL Immature Gran % (Auto) 0.5 H (0.0-0.4) % Neut % (Auto) 83.9 H (45-73) % Lymph % (Auto) 7.9 L (20-40) % Shannon % (Auto) 6.3 (2-11) % Eos % (Auto) 1.4 (0-4) % Baso % (Auto) 0.0 (0-2) % Lymph # (Auto) 0.3 L (1.2-4.9) X10*3/uL Shannon # (Auto) 0.3 (0.1-1.2) X10*3/uL Eos # (Auto) 0.1 (0.0-0.4) X10*3/uL Baso # (Auto) 0.0 (0.0-0.2) X10*3/uL Abs Immat Gran (auto) 0.02 (0.00-0.03) X10*3/uL Absolute Neuts (auto) 3.5 (2.0-8.3) x10*3/uL Absolute Nucleated RBC 0.000 (0.0-0.012) X10*3/uL Nucleated RBC % (auto) 0.0 (0.0-0.2) /100WBC Hold Purple Top SEE NOTE Sodium 141 (135-145) mmol/L Potassium 4.7 (3.3-5.1) mmol/L Chloride 108 (96-108) mmol/L Carbon Dioxide 26 (22-29) mmol/L Anion Gap 12 (12-20) BUN 16 (9-16) mg/dL Creatinine 0.90 (0.5-1.4) mg/dL Estim Creat Clear Calc 58.1 Estimated GFR > 60 Random Glucose 124 H (60-115) mg/dL Calcium 9.2 (8.4-10.2) mg/dL Magnesium 1.6 (1.6-2.6) mg/dL Total Bilirubin 2.0 H (0.0-1.0) mg/dL Direct Bilirubin 0.5 (0.0-0.5) mg/dL AST 31 (5-31) U/L ALT 14 (0-31) U/L Alkaline Phosphatase 59 (39-117) U/L Ammonia 29 (13-55) umol/L Total Protein 7.3 (6.5-8.0) g/dL Albumin 3.9 (3.5-5.0) g/dL Urine Color Urine Appearance Urine pH (5.0-9.0) Ur Specific [place] (1.005-1.025) Urine Protein (Neg-Trace) mg/dL Urine Glucose (UA) (Negative) mg/dL Urine Ketones (Negative) mg/dL Urine Blood (Negative) Urine Nitrite (Negative) Ur Leukocyte Esterase (Negative) Urine RBC (0-2) /HPF Urine WBC (0-5) /HPF Ur Squamous Epith Cells (0-2) /HPF Urine Bacteria (None Seen) Hyaline Casts (0-2) /LPF Influenza Type A (PCR) NEGATIVE (Negative) Influenza Type B (PCR) NEGATIVE (Negative) RSV RNA Qual (PCR) NEGATIVE (Negative) SARS-CoV-2 RNA (RT-PCR) NEGATIVE (Negative) 07/30/24 Range/Units 12:57 WBC (4.8-10.8) X10*3/uL RBC (4.20-5.50) X10*6/uL Hgb (12.0-16.0) g/dl Hct (37.0-47.0) % MCV (80.0-98.0) fL MCH (27.0-33.0) pg MCHC (31.0-35.0) g/dl RDW (11.0-16.0) % Plt Count (160-400) X10*3/uL MPV (9.4-12.3) fL Immature Gran % (Auto) (0.0-0.4) % Neut % (Auto) (45-73) % Lymph % (Auto) (20-40) % Shannon % (Auto) (2-11) % Eos % (Auto) (0-4) % Baso % (Auto) (0-2) % Lymph # (Auto) (1.2-4.9) X10*3/uL Shannon # (Auto) (0.1-1.2) X10*3/uL Eos # (Auto) (0.0-0.4) X10*3/uL Baso # (Auto) (0.0-0.2) X10*3/uL Abs Immat Gran (auto) (0.00-0.03) X10*3/uL Absolute Neuts (auto) (2.0-8.3) x10*3/uL Absolute Nucleated RBC (0.0-0.012) X10*3/uL Nucleated RBC % (auto) (0.0-0.2) /100WBC Hold Purple Top Sodium (135-145) mmol/L Potassium (3.3-5.1) mmol/L Chloride (96-108) mmol/L Carbon Dioxide (22-29) mmol/L Anion Gap (12-20) BUN (9-16) mg/dL Creatinine (0.5-1.4) mg/dL Estim Creat Clear Calc Estimated GFR Random Glucose (60-115) mg/dL Calcium (8.4-10.2) mg/dL Magnesium (1.6-2.6) mg/dL Total Bilirubin (0.0-1.0) mg/dL Direct Bilirubin (0.0-0.5) mg/dL AST (5-31) U/L ALT (0-31) U/L Alkaline Phosphatase (39-117) U/L Ammonia (13-55) umol/L Total Protein (6.5-8.0) g/dL Albumin (3.5-5.0) g/dL Urine Color Yellow Urine Appearance Clear Urine pH 6.5 (5.0-9.0) Ur Specific [place] 1.015 (1.005-1.025) Urine Protein Trace (Neg-Trace) mg/dL Urine Glucose (UA) Negative (Negative) mg/dL Urine Ketones Negative (Negative) mg/dL Urine Blood Small (1+) H (Negative) Urine Nitrite Positive H (Negative) Ur Leukocyte Esterase Negative (Negative) Urine RBC 3-5 H (0-2) /HPF Urine WBC 0-5 (0-5) /HPF Ur Squamous Epith Cells 0-2 (0-2) /HPF Urine Bacteria 4+ (None Seen) Hyaline Casts 0-2 (0-2) /LPF Influenza Type A (PCR) (Negative) Influenza Type B (PCR) (Negative) RSV RNA Qual (PCR) (Negative) SARS-CoV-2 RNA (RT-PCR) (Negative) Independent Interpretation I performed an independent interpretation of an: Plain X-Ray Radiology Impression Discussion of test interpretation with radiology: I have reviewed the radiologist's reading. Independent Historian Clinical information obtained from an independent historian. History obtained from or confirmed by: Spouse and EMS External Record Review External record reviewed: Inpatient record, Office record, Outpatient record, Prior outpatient labs, Prior outpatient radiology, Primary care record and Outside ED record Tests considered The following testing was considered but not selected: As above Prescription Management I considered prescription management with: Pain Medication and Antibiotic Chronic Conditions Patient?s care impacted by: Other (Liver cirrhosis) Social Determinants Patient?s care significantly limited by Social Determinants of Health including: Other Social Determinant of Health Discharge Plan Discharge Clinical Impression: Low back pain, Fall Patient Disposition: Still a Patient Prescriptions: No Action pravastatin 40 mg tablet 1 tab PO DAILY glipizide 10 mg tablet 1 tab PO BID citalopram 20 mg tablet 1 tab PO DAILY gabapentin 300 mg capsule 1 cap PO BEDTIME hydrochlorothiazide 25 mg tablet 1 tab PO DAILY furosemide 20 mg tablet 1 tab PO DAILY insulin degludec [Tresiba FlexTouch U-200] 200 unit/mL (3 mL) insulin pen 72 unit subcut BID propranolol 20 mg tablet 1 tab PO BID lorazepam 1 mg tablet 1 tab PO BEDTIME PRN (Reason: anxiety) Januvia 100 mg tablet 1 tab PO DAILY sucralfate 1 gram Tablet 1 g PO BID Qty: 60 0RF omeprazole 40 mg Capsule,Delayed Release(Dr/Ec) 40 mg PO BID@0630,1630 Qty: 60 0RF nitrofurantoin monohyd/m-cryst [Macrobid] 100 mg capsule 100 mg PO Q12H 7 Days Qty: 14 0RF Rx Instructions: must administer with a meal/food ondansetron 4 mg tablet,disintegrating 4 mg PO Q6-8H PRN (Reason: nausea and vomiting) Qty: 7 0RF Paxlovid 300 mg (150 mg x 2)-100 mg tablets,dose pack See Rx Instructions .ROUTE .COMPLEX Qty: 30 0RF Rx Instructions: take TWO 150 mg tablets of nirmatrelvir with ONE 100 mg tablet of ritonavir twice daily for 5 days ondansetron 4 mg tablet,disintegrating 4 mg PO Q8H PRN (Reason: nausea and vomiting) Qty: 20 0RF nitrofurantoin monohyd/m-cryst [Macrobid] 100 mg capsule 100 mg PO Q12H 5 Days Qty: 10 0RF Rx Instructions: must administer with a meal/food ondansetron 4 mg tablet,disintegrating 4 mg PO Q8H PRN (Reason: nausea and vomiting) Qty: 8 0RF Print Language: Upper Sorbian
[2024-07-30 10:47] LABS: MANUAL DIFF FLAG NO
[2024-07-30 10:48] LABS: Eosinophils Absolute Auto 0.1 X10*3/uL (0.0-0.4); Eosinophils Percent Auto 1.4 % (0-4); Hemoglobin 10.6 g/dl (12.0-16.0); Imm Gran Abs Auto 0.02 X10*3/uL (0.00-0.03); Imm Gran Pct Auto 0.5 % (0.0-0.4); Lymphocytes Absolute Auto 0.3 X10*3/uL (1.2-4.9); Lymphocytes Percent Auto 7.9 % (20-40); Mean Corpuscular HGB Conc 32.1 g/dl (31.0-35.0); Mean Corpuscular Hemoglobin 29.3 pg (27.0-33.0); Mean Corpuscular Volume 91.2 fL (80.0-98.0); Monocytes Absolute Auto 0.3 X10*3/uL (0.1-1.2); Monocytes Percent Auto 6.3 % (2-11); Neutrophils Absolute Auto 3.5 x10*3/uL (2.0-8.3); Neutrophils Percent Auto 83.9 % (45-73); Red Blood Count 3.62 X10*6/uL (4.20-5.50); Red Cell Distribution Width 16.1 % (11.0-16.0); White Blood Count 4.2 X10*3/uL (4.8-10.8)
[2024-07-30 10:50] LABS: Platelet Count 34 X10*3/uL (160-400)
[2024-07-30] MEDS: Cyclobenzaprine HCl 10 MG TABLET PO (10:52)
[2024-07-30 11:09] LABS: Alanine Aminotransferase 14 U/L (0-31); Albumin Level 3.9 g/dL (3.5-5.0); Alkaline Phosphatase 59 U/L (39-117); Anion Gap 12 (12-20); Aspartate Amino Transferase 31 U/L (5-31); Bilirubin Direct 0.5 mg/dL (0.0-0.5); Blood Urea Nitrogen 16 mg/dL (9-16); Calcium 9.2 mg/dL (8.4-10.2); Carbon Dioxide 26 mmol/L (22-29); Chloride 108 mmol/L (96-108); Creatinine Clr Calc Pharmacy 58.1; Estimated Glomerular Filt Rate > 60; Glucose Random 124 mg/dL (60-115); Magnesium 1.6 mg/dL (1.6-2.6); Potassium 4.7 mmol/L (3.3-5.1); Sodium 141 mmol/L (135-145); Total Protein 7.3 g/dL (6.5-8.0)
[2024-07-30 11:10] LABS: Ammonia 29 umol/L (13-55)
[2024-07-30 13:04] LABS: Appearance Urine Clear; Color Urine Yellow; Glucose Urine UA Negative (Negative); Leukocyte Esterase Urine Negative (Negative); Nitrite Urine Positive (Negative); PH 6.5 (5.0-9.0); Specific Gravity - Urine 1.015 (1.005-1.025); UMIC TRIGGER UACC YES; Urine Blood Small (1+) (Negative); Urine Ketones Negative (Negative); Urine Protein Trace mg/dL (Neg-Trace)
[2024-07-30 13:14] LABS: Influenza A PCR NEGATIVE (Negative); Influenza B PCR NEGATIVE (Negative); Resp Syncy Virus RNA Qual PCR NEGATIVE (Negative); SARS COV2 PCR INHOUSE NEGATIVE (Negative)
[2024-07-30 13:23] LABS: Bacteria Urine 4+ (None Seen); Hyaline Casts Urine 0-2 /LPF (0-2); Squamous Epithelial Cell Urine 0-2 /HPF (0-2); UACC Culture Trigger YES; WBC Urine 0-5 /HPF (0-5)
[2024-07-30] MEDS: oxyCODONE HCl Immed Release 5 MG TABLET PO (13:34)
--- NOTE | 2024-07-30 15:44 | MHC.CM.ED ---
Addendum entered by Linda Stephens 07/30/24 15:54: [facility] unable to offer a bed. [facility] is still reviewing. Unsure if [facility] will be able to offer a bed. Patient has [employer] as a secondary insurance. [employer] will cover 80% of SNF placement when Medicare will not. Referral broadcasted within 15 miles of patient's home. Original Note: Received case management consult from Kristie GASTELUM. Patient came to the ER due to a fall. Work up essentially negative. Physical therapy eval completed. Rehab is recommended. Does not appear patient has been inpatient in any facility in the past 30 days. Referral sent to all 3 acute rehab facilities. Copy of HCP obtained from [facility]. Continue to monitor for d/c needs.
[2024-07-30 16:17] VITALS: BP 137/67; PULSE 71; RESP 16; TEMP 36.8; O2SAT 92
--- NOTE | 2024-07-30 16:29 | MHC.CM.ED ---
Met with patient in regards to discharge planning. Patient lives with her and disabled son, ambulates with a cane and had no services prior to coming to the ER. PCP verified. Physical therapy findings explained. Patient feels she can safely return home. Patient agreeable for CM to speak with . Spoke with , Bora, via telephone at [phone]. Bora does not feel patient can safely return home at this time. Patient has been having extreme pain since she fell. Patient always states she will participate in home therapy and then doesn't. Bora aware patient does not have a qualifying stay and will need to utilize [facility] insurance for 80% coverage of STR. Bora verbalizes understanding. Anticipate patient will stay in ER overnight so STR can be found. Yareli WINTER and Kristie GASTELUM aware. Continue to monitor for d/c needs.
[2024-07-30 17:14] LABS: Glucose, Whole Blood 60 mg/dL (60-115)
[2024-07-30 23:49] VITALS: BP 137/67; PULSE 71; RESP 16; TEMP 36.8; O2SAT 92
[2024-07-31 00:11] VITALS: BP 157/68; PULSE 63; RESP 15; TEMP 36.1; O2SAT 93
[2024-07-31 00:12] LABS: Glucose, Whole Blood 45 mg/dL (60-115)
--- NOTE | 2024-07-31 00:19 | PC.NURSE ---
Assumed care of pt at 2330 Pt home glucometer beeping measuring low, tech Aram checked POC and poc:45, patient given food and juice, repositioned in bed. Pt easily arousable, A&O4 at this time. Pt had empty tray but patient reports her had eaten the food. Glucose rechecked and poc 50's, patient given more juice. POC order for Q2H. Plan of care ongoing.
[2024-07-31 00:33] LABS: Glucose, Whole Blood 51 mg/dL (60-115)
--- NOTE | 2024-07-31 00:36 | MHC.EDTECH ---
Assumed care of pt at 2300. This tech heard and found patients home glucometer beeping measuring low on screen. This tech made RN Alla aware, this tech checked POC and poc:45. Patient POC now Q2. Patient given food and juice
[2024-07-31 01:07] LABS: Glucose, Whole Blood 79 mg/dL (60-115)
[2024-07-31 03:08] LABS: Glucose, Whole Blood 167 mg/dL (60-115)
--- NOTE | 2024-07-31 05:38 | MHC.EDTECH ---
Pt 1 assist with a walker to the bathroom. pt back into bed and in position of comfort. Pt complaining of lower back pain, RN aware, hot packs placed on lower back
[2024-07-31] MEDS: Cyclobenzaprine HCl 5 MG TABLET PO ×2 (05:59→13:47)
[2024-07-31] MEDS: oxyCODONE HCl Immed Release 5 MG TABLET PO ×2 (05:59→13:10)
[2024-07-31 06:18] VITALS: BP 146/68; PULSE 71; RESP 17; TEMP 36.4; O2SAT 92
--- NOTE | 2024-07-31 06:53 | MHC.EDTECH ---
Patient is sleeping now.
[2024-07-31] MEDS: Furosemide 20 MG TABLET PO (08:07)
[2024-07-31] MEDS: Propranolol HCL 20 MG TABLET PO (08:07)
[2024-07-31] MEDS: Escitalopram Oxalate 10 MG TABLET PO (08:07)
[2024-07-31] MEDS: Sucralfate 1 GM TABLET PO (08:07)
[2024-07-31] MEDS: rifAXIMin 550 MG TABLET PO (08:07)
[2024-07-31 08:09] LABS: Glucose, Whole Blood 135 mg/dL (60-115)
--- NOTE | 2024-07-31 09:13 | PHA.MEDREC ---
Pharmacy Consult ? Medication Reconciliation Pharmacy has reviewed the medication reconciliation completed by nursing. Spoke with pt and , both were poor historians. Pt later provided a list, that matched claims. List states to increase Tresiba every 2 days until FBG < 130. states the current dose is 46 units. But the list states the dose as 32. Spoke with provider and she chose to leave it at 32 units as the FBG is very close to 130.
[2024-07-31] MEDS: Insulin Glargine,Hum.rec.anlog 100 UNIT/ML 10 ML VIAL 22 UNIT SUBCUT (10:06)
[2024-07-31] MEDS: glipiZIDE 10 MG TABLET PO (10:07)
[2024-07-31 10:09] VITALS: BP 152/79; PULSE 76; RESP 20; TEMP 36.7; O2SAT 97
[2024-07-31 10:09] LABS: Glucose, Whole Blood 154 mg/dL (60-115)
[2024-07-31] MEDS: Spironolactone 25 MG TABLET 50 MG PO (10:09)
--- NOTE | 2024-07-31 10:22 | MHC.CM.ED ---
Addendum entered by Linda Stephens 07/31/24 11:35: [facility] is only facility that is able to offer a bed. Spoke with patient's Bora. Patient and Bora agreeable to [facility]. Luz LUNDBERG booked for 130pm. [facility] with chart. Patient, Alla Sahni RN and Kristie GASTELUM aware. Original Note: Patient remains in ER overflow. [facility], [facility] [address], [facility], [facility] [place], [facility], [facility], [facility], [facility] and [facility] are still reviewing. Continue to monitor for d/c needs.
[2024-07-31] MEDS: Ondansetron ODT 4 MG TAB.RAPDIS TRANSLINGU (12:11)
--- NOTE | 2024-07-31 13:07 | PC.NURSE ---
Called [facility] with no answer for report. Will send note with patient to have nurse call for report
[2024-07-31 14:51] VITALS: BP 152/79; PULSE 76; RESP 20; TEMP 36.7; O2SAT 97
== END 2024-07-31 15:02 | disposition skilled nursing facility (03) ==
PROVIDERS: Physician Assistant; Emergency Provider Emergency Medicine; PCP Internal Medicine
DX: M54.50 Low back pain, unspecified (principal); N39.0 Urinary tract infection, site not specified; B96.20 Unspecified Escherichia coli [E. coli] as the cause of diseases classified elsewhere; Z03.818 Encounter for observation for suspected exposure to other biological agents ruled out; E11.9 Type 2 diabetes mellitus without complications; K74.60 Unspecified cirrhosis of liver; Z79.899 Other long term (current) drug therapy
CPT/HCPCS: 0241U; 36415; 72100; 72170; 72220; 80048; 80076; 81001; 82140; 82947; 83735; 85025; 87086; 87088; 87186; 97162; 99285

== ENCOUNTER → 2024-07-30 10:28 | Outpatient (BNV) | payer MEDICARE, OTHER, SELFPAY | PROVIDERS: Emergency Provider Emergency Medicine; PCP Internal Medicine; Visit Provider Radiology Diagnostic Radiology | DX: M54.50 Low back pain, unspecified (principal); W19.XXXA Unspecified fall, initial encounter | CPT/HCPCS: 72100; 72170; 72220 ==